=== PATIENT | female | born 1950 | race Caucasian/White ===

== ENCOUNTER 2017-10-23 13:35 | Inpatient (IN) | payer OTHER ==
[~2017-10-23] VITALS: Ht 170.2 cm; Wt 90.7 kg
[~2017-10-23 13:35] MED LIST: ABILIFY 15MG15 MG PO; ABILIFY15 M1 PO; AFLURIA 2045 MCG/0.1 IM; ALBUTEROL 3 ML3 ML INH; ALBUTEROL SULFAT3 M1 NEB; ALBUTEROL0.09 MG/A1 INH; ALBUTEROL2.5 MG/3 M INH/SOL; ALPRAZOLAM1 MG PO; BELSOMRA PO; BELSOMRA20 M1 PO; BETAMETHASONE D30 ML; CEFTIN250 M1 PO; CITALOPRAM HYDR20 MG PO; CYCLOBENZAPRINE10 M1 PO; DIFLUCAN150 M1 PO; DOXYCYCLINE HY100 M4 PO; DULERA1 ARO INH; DUONEB 3 MG/3 ML3 ML INH/SOL; ESCITALOPRAM OX20 MG PO; FLAGYL500 MG PO; FLEXERIL10 MG PO; IBUPROFEN800 M1 PO; LAMICTAL 100MG100 MG PO; LAMICTAL150 MG PO; LAMOTRIGINE150 M1 PO; LASIX20 MG PO; LEXAPRO20 M1 PO; LINZESS145 MC1 PO; MEDROL DOSEPAK1 PAC PO; MELOXICAM7.5 M1 PO; METFORMIN HCL1000 M1 PO; METFORMIN HCL500 MG PO; METFORMIN1000 MG PO; METFORMIN500 MG PO; METOCLOPRAMIDE H5 MG PO; MILK OF MA400 MG/52 PO; MOTRIN600 MG PO; OMEPRAZOLE40 M1 PO; PERCOCET 5-3251 EACH PO; PNEUMOVAX 0.5M0.5 ML IM; PRAVASTATIN SOD20 M2 PO; PREDNISONE10 M2 PO; PREDNISONE10 MG PO; PREDNISONE20 M1 PO; PREDNISONE50 M1 PO; PRILOSEC OTC20 M1 PO; PRILOSEC40 MG PO; REGLAN; STIOLTO RESPIMAT4 GM INH; SYMBICORT 80/4.1 PUF INH; TRAMADOL50 MG PO; TRAZODONE HCL50 M1 PO; VESICARE5 M1 PO; VICODIN 5-3001 EACH PO; ZETIA10 M1 PO; ZETIA10 MG PO; ZITHROMAX 500M500 MG PO
--- NOTE | 2017-10-23 13:50 | ED DYSPNEA/ASTHMA COMPLAINT ---
History of Present Illness General Chief Complaint: Dyspnea (COPD, CHF, Other) Stated Complaint: BIBA, SOB Source: patient, old records Exam Limitations: no limitations Vital Signs & Intake/Output Vital Signs & Intake/Output Vital Signs Date Time Temp Pulse Resp B/P B/P Pulse O2 O2 Flow FiO2 Mean Ox Delivery Rate 10/23 1723 97.5 99 20 123/75 97 Nasal 2.0L Cannula 10/23 1347 95 Nasal 3.0L Cannula 10/23 1342 96.6 103 18 110/63 94 Room Air Allergies Coded Allergies: Penicillins (RASH 10/10/17) azithromycin (From ZITHROMAX Z-ERNESTINA) (RASH 10/10/17) ciprofloxacin (From CIPRO HC) (FACIAL SWELLING, HIVES 10/10/17) clarithromycin (From BIAXIN) (RASH 10/10/17) hydrocortisone (From CIPRO HC) (FACIAL SWELLING 01/21/16) levofloxacin (From LEVAQUIN) (RASH 10/10/17) meperidine (From DEMEROL) (UNKNOWN PER PT 10/10/17) rofecoxib (From VIOXX) (RASH 10/10/17) Reconcile Medications Albuterol Sulfate 2.5 MG/3 ML (0.083 %) VIAL.NEB 1 Vial INH/NEHAL Q4P PRN RESPIRATORY Aripiprazole (Abilify) 15 MG TABLET 1 TAB PO DAILY MENTAL HEALTH (Reported) Cyclobenzaprine HCl 10 MG TABLET 1 TAB PO DAILY PRN pain Doxycycline Hyclate 100 MG TABLET 1 TAB PO BID PNA Escitalopram Oxalate (Lexapro) 20 MG TABLET 1 TAB PO DAILY MENTAL HEALTH ( Reported) Ezetimibe (Zetia) 10 MG TABLET 1 TAB PO DAILY MENTAL HEALTH (Reported) Hydrocodone/Acetaminophen (Vicodin 5-300 MG Tablet) 5 MG-300 MG TABLET 1 TAB PO BID pain Ibuprofen 800 MG TABLET 1 TAB PO PRN PAIN/INFLAMMATION (Reported) Lamotrigine 150 MG TABLET 1 TAB PO BID BIPOLAR (Reported) Linaclotide (Linzess) 145 MCG CAPSULE 0.5 MG PO DAILY PRN CONSTIPATION ( Reported) Meloxicam 7.5 MG TABLET 1 TAB PO DAILY PAIN CONTROL (Reported) Metformin HCl 1,000 MG TABLET 1 TAB PO DAILY DM (Reported) Metoclopramide HCl 5 MG TABLET 1 TAB PO PRN GI (Reported) Omeprazole 40 MG CAPSULE.DR 1 CAP PO DAILY ACID REFLUX (Reported) Oxycodone HCl/Acetaminophen (Percocet 5-325 MG Tablet) 5 MG-325 MG TABLET 1 TAB PO 4 TIMES/DAY PRN pain Pravastatin Sodium 20 MG TABLET 1 TAB PO DAILY CHOLESTEROL (Reported) Prednisone 20 MG TABLET 1 TAB PO BID copd Solifenacin Succinate (Vesicare) 5 MG TABLET 1 TAB PO DAILY INCONTINENCE ( Reported) Suvorexant (Belsomra) 20 MG TABLET 1 TAB PO QPM SLEEP (Reported) Tiotropium Br/Olodaterol HCl (Stiolto Respimat Inhal [place]) 2.5 MCG-2.5 MCG/ ACTUATION MIST.INHAL 1 PUFF INH BID EMPHYSEMA (Reported) Triage Note: 66 Y/O FEMALE BIBA FROM HOME C/O SOB X 2 HOURS. HX COPD AND WEARS 02 AT 3L PER BASELINE. EMS FOUND PT WITHOUT OXYGEN PT STATED TO THEM SHE WAS WALKING OUTSIDE WITHOUT IT. INITIAL SATS IN 80'S (WITHOUT O2) BUT IMPROVED TO 97% ON 3L PER EMS. PT DENIES PAIN. STATES SHE HAS BEEN COUGHING WITH "BEIGE" PHLEGM. PT DENIES CHANGES IN APPETITE. DENIES FEVERS PT RECEIVED DUO NEB TX EN ROUTE AND STATES SHE FEELS RELIEF WITH MED. EKG IN PROGRESS Triage Nurses Notes Reviewed? yes Onset: Abrupt Duration: day(s): (1), constant, getting worse Timing: recent history Severity: moderate Activities at Onset: none Prior Episodes/Possible Cause: chronic episodes Associated Symptoms: cough HPI: 66-year-old female history of COPD on 3 L baseline presents brought in by ambulance for shortness of breath for the past 1 day. She states earlier today she checked her oxygen saturation at home is 84% on her 3 L. She states she's been feeling more short of breath for the past few days she's been seen twice this month for her shortness of breath. She is currently on by mouth prednisone. She reports a cough productive of yellow sputum. No fever no chills no leg swelling chest pain dizziness lightheadedness. She does not smoke. She was given a nebulizer en route with improvement in her symptoms. No modifying factors or associated symptoms otherwise. (Cuate Almaguer) Past History Travel History Traveled to [place] past 21 day No Medical History Any Pertinent Medical History? 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 No (Cuate Almaguer) Review of Systems Review of Systems Constitutional: Reports: see HPI. Comments Review of systems: See HPI, All other systems negative. Constitutional, no chills no fever, HEENT: no sore throat no congestion Cardiovascular: No chest pain , no palpitation Skin: no rashes, no change in skin Respiratory: dyspnea cough sputum GI: No nausea no vomiting, no diarrhea, : No dysuria Muscle skeletal: No joint pain, no back pain Neurologic: , no headache Heme/endocrine: No bruising Immunology: No lymphadenopathy (Cuate Almaguer) Physical Exam Physical Exam General Appearance: well developed/nourished, alert, awake Respiratory: wheezing Comments: Well-developed well-nourished person in no acute distress HEENT: Normal EENT exam; PERRL, EOMI, HEAD is atraumatic. moist mucous membranes. Neck: Supple, no lymphadenopathy, normal range of motion Back: Nontender, no CVA tenderness. Full range of motion Cardiovascular: Regular rate and rhythms no murmurs rubs Respiratory: No respiratory distress. Patient speaking in full complete sentences. Wheezing bilateral no rhonchi no rales Abdomen: Soft, nontender nondistended, no appreciable organomegaly. Normal bowel sounds. No rebound/guarding, Extremity: No edema, full range of motion of extremities, Neuro: Alert oriented x3, motor sensory normal, There were no obvious focal neurologic abnormalities. Skin: No appreciable rash on exposed skin, skin is warm and dry. Psych: Mood and affect is normal, memory and judgment is normal. Core Measures ACS in differential dx? Yes CVA/TIA Diagnosis No Sepsis Present: No Sepsis Focused Exam Completed? No (Chen GOMEZ,Cuate) Progress Differential Diagnosis: asthma, AMI, COPD, musculoskeletal pain, pulmonary embolism, pneumonia, pneumothorax, unstable angina Plan of Care: Orders Procedure Date/time Status CBC WITHOUT DIFFERENTIAL 10/24 0600 Active BASIC ELECTROLYTES PLUS BUN&CR 10/24 0600 Active Regular Diet 10/23 D Active RAPID VIRAL INFLUENZA A 10/23 1739 Active OXYGEN SETUP (GEN) 10/23 1615 Active Saline Lock 10/23 1615 Active Admit to inpatient 10/23 1615 Active Activity/Ambulation 10/23 1615 Active Code Status 10/23 1615 Active TRC EVALUATION (GEN) 10/23 1607 Active URINALYSIS 10/23 1606 Active STREP PNEUMO URINARY ANTIGEN 10/23 1600 Active LEGIONELLA URINARY ANTIGEN 10/23 1600 Active LOWER RESPIRATORY CULTURE 10/23 1600 Active Pathway - chart 10/23 1557 Active House Staff 10/23 1557 Active Patient Data 10/23 1528 Active BLOOD CULTURE 10/23 1501 Active TROPONIN LEVEL 10/23 1357 Complete COMPREHENSIVE METABOLIC PANEL 10/23 1357 Complete CBC WITHOUT DIFFERENTIAL 10/23 1357 Complete B-TYPE NATRIURETIC PEP (BNP) 10/23 1357 Complete EKG 10/23 1336 Active TRC EVALUATION (GEN) 10/23 UNK Active VTE Mechanical Prophylaxis 10/23 UNK Active Vital Signs 10/23 UNK Active Intake & Output 10/23 UNK Active FingerStick- Glucose 10/23 UNK Active Current Medications Sig/Laura Start time Last Medication Dose Stop Time Status Admin Aripiprazole 15 MG DAILY 10/24 1000 UNVr (Abilify) Laboratory Tests 10/23/17 1400: Anion Gap 11, Estimated GFR > 60, BUN/Creatinine Ratio 28.9 H, Glucose 141 H, Calcium 9.7, Total Bilirubin 0.5, AST 22, ALT 38, Alkaline Phosphatase 84, Troponin I < 0.01, [id number]-[id number] Pept 43.3, Total Protein 6.5, Albumin 3.8, Globulin 2.7, Albumin/Globulin Ratio 1.4, CBC w Diff MAN DIFF ORDERED, RBC 4.17 L, MCV 91.6, MCH 30.5, RDW 13.7, MPV 8.8, Gran % 89.8 H, Lymphocytes % 6.7 L, Monocytes % 3.3, Eosinophils % 0.2, Basophils % 0, Absolute Granulocytes 10.3 H , Absolute Lymphocytes 0.8 L, Absolute Monocytes 0.4, Absolute Eosinophils 0, Absolute Basophils 0, Platelet Estimate VERIFIED BY SMEAR, Normocytic RBCs VERIFIED, Normochromic RBCs VERIFIED, PUBS MCHC 33.3 Microbiology 10/23 1739 NASOPHARYN: Influenza Virus A & B Rapid Smear - ORD 10/23 1600 URINE ROUT: Legionella Antigen - COLB 10/23 1600 URINE ROUT: Streptococcus pneumoniae Antigen (M - COLB 10/23 1600 LOWER RESP: Respiratory Culture - COLB 10/23 1600 LOWER RESP: Gram Stain - COLB 10/23 1600 BLOOD: Blood Culture - RECD 10/23 1545 BLOOD: Blood Culture - RECD Patient declining another breathing treatment at this time 94% on 3 L labs ordered old records reviewed Discussed with patient at length all of her lab results x-ray findings given she is currently on by mouth prednisone she has failed outpatient therapy and new consolidation suggestive of pneumonia. Case discussed with Dr. HORTON AGREES WITH PLAN case d/w dr elizabeth will admit- she advised to give rocephin and azithro given pts allergies to fluoroquinolones Diagnostic Imaging: Viewed by Me: Radiology Read. Discussed w/RAD: Radiology Read. Radiology Impression: PATIENT: JOSEPH DEVRIES PRESENT AGE: 66 PATIENT ACCOUNT NO: [id number] : 48 LOCATION: [facility] ORDERING PHYSICIAN: Cuate GOMEZ SERVICE DATE: 10/23/177698 EXAM TYPE: RAD - XRY-PORTABLE CHEST XRAY EXAMINATION: XR PORTABLE CHEST CLINICAL INFORMATION: Shortness of breath COMPARISON: Chest x-rays most recent prior dated 08/17/2017 TECHNIQUE: Portable frontal view of the chest was obtained. FINDINGS: Stable cardiomediastinal silhouette. Small right pleural effusion with streaky infiltrate or atelectasis right base. This represents slight interval prominence compared to the prior examination. Minor subsegmental atelectasis left base. Known right lateral eighth and ninth rib fractures are not well visualized. No acute osseous abnormality of the visualized bony thorax. IMPRESSION: 1. Trace right pleural effusion and increasing opacity right base compatible with evolving infiltrate or atelectasis. 2. Minor subsegmental atelectasis left base. DICTATED BY: Saida Wset MD DATE/TIME DICTATED:10/23/171435 CASE MANAGER:NATALIE DATE/TIME TRANSCRIBED:10/23/171435 CONFIDENTIAL, DO NOT COPY WITHOUT APPROPRIATE AUTHORIZATION. <Electronically signed in Other Vendor System> SIGNED BY: Saida West MD 10/23/17 1441 Initial ED EKG: STACH AT 100 NORMAL AXIS, NO ST SEG CHANGES (Cuate Almaguer) Departure Departure Time of Disposition: 1512 Disposition: STILL A PATIENT Condition: Stable Clinical Impression Primary Impression: Pneumonia Referrals: Alhaji Quiñones MD (PCP/Family) Departure Forms: Customer Survey General Discharge Information Prescriptions: Current Visit Scripts Cyclobenzaprine HCl 1 TAB PO DAILY PRN pain #30 TAB Admission Note Spoke With: Radha Padilla MD Documentation of Exam: Documentation of any treatments & extenuating circumstances including Concerns Regarding Discharge (functional status, medication knowledge or non-compliance, living conditions, etc.) that warrant an admission rather than observation: [IV antibiotics IV steroids respiratory treatments when necessary premature discharge would BE medically harmful patient has failed outpatient therapy with by mouth prednisone given hypoxia shortness of breath premature discharge would BE medically harmful. (Cuate Almaguer) PA/[employer] SUPERVISOR Co-Sign Statement Statement: ED Attending supervision documentation- x I saw and evaluated the patient. I have also reviewed all the pertinent lab results and diagnostic results. I agree with the findings and the plan of care as documented in the PA's/[employer] SUPERVISOR's documentation. Hx COPD on 3L NC with JC, hypoxia secondary to pneumonia [] I have reviewed the ED Record and agree with the PA's/[employer] SUPERVISOR's documentation. [] Additions or exceptions (if any) to the PAs/[employer] SUPERVISOR's note and plan are summarized below: [] (Tommy FREEDMAN,Pierre) Critical Care Note Critical Care Note Critical Care Time: non-applicable (Cuate Almaguer)
[2017-10-23 14:16] LABS: ABSOLUTE BASOPHIL COUNT 0 /CUMM (0.0-0.2); ABSOLUTE EOSINOPHIL COUNT 0 /CUMM (0.0-0.7); ABSOLUTE GRANULOCYTE CT 10.3 /CUMM (1.4-6.5); ABSOLUTE LYMPH COUNT 0.8 /CUMM (1.2-3.4); ABSOLUTE MONOCYTE COUNT 0.4 /CUMM (0.10-0.60); BASOPHIL % 0 % (0.0-2.0); EOSINOPHIL % 0.2 % (0-5); GRANULOCYTE % 89.8 % (42.2-75.2); HEMATOCRIT 38.2 % (37-47); MEAN CORPUSCULAR HGB 30.5 PG (27.0-31.0); MEAN CORPUSCULAR HGB CONC 33.3 G/DL (33.0-37.0); MEAN CORPUSCULAR VOLUME 91.6 FL (81.0-99.0); MEAN PLATELET VOLUME 8.8 FL (7.4-10.4); PLATELET COUNT 303 /CUMM (130-400); RBC DISTRIBUTION WIDTH 13.7 % (11.5-14.5); RED BLOOD CELL CT 4.17 /CUMM (4.20-5.40); WHITE BLOOD CELL COUNT 11.4 /CUMM (4.8-10.8)
--- NOTE | 2017-10-23 14:41 | RADIOLOGY REPORT ---
EXAMINATION: XR PORTABLE CHEST CLINICAL INFORMATION: Shortness of breath COMPARISON: Chest x-rays most recent prior dated 08/17/2017 TECHNIQUE: Portable frontal view of the chest was obtained. FINDINGS: Stable cardiomediastinal silhouette. Small right pleural effusion with streaky infiltrate or atelectasis right base. This represents slight interval prominence compared to the prior examination. Minor subsegmental atelectasis left base. Known right lateral eighth and ninth rib fractures are not well visualized. No acute osseous abnormality of the visualized bony thorax. IMPRESSION: 1. Trace right pleural effusion and increasing opacity right base compatible with evolving infiltrate or atelectasis. 2. Minor subsegmental atelectasis left base.
--- NOTE | 2017-10-23 15:38 | History & Physical ---
Chrissy FREEDMAN,Avery 10/23/17 1537: General Information and HPI MD Statement: I have seen and personally examined JAYCOBJOSEPH Donnie and documented this H&P. The patient is a 66 year old F who presented with a patient stated chief complaint of [shortness of breath and productive cough]. Source of Information: patient, old records Exam Limitations: no limitations History of Present Illness: Patient is a 65-year-old female with a PMH significant for DM, O2 dependent COPD (3 L baseline), HLD, anxiety, bipolar disorder who was brought into the ED by ambulance complaining of shortness of breath, and productive cough. Patient states that she has been in the ED multiple times over the past month with similar complaints and was failed treatment as an outpatient with doxycycline and a prednisone taper. Over the past few days she has been having significant dyspnea on exertion. Today she became dyspneic after ambulation outside while using her portable O2, and could not catch her breath at rest; she checked her pulse ox at this time and it read 84% and she felt dizzy. At this point her friend called EMS. She has had a productive cough with beige sputum intermitently for the last month. She has not had any hemoptysis, associated chest pain, nasal congestion, fever, chills, or rhinorrhea. She denies any sick contacts. She is a patient of Dr. Corona but does not follow closely with her. She has never been admitted to the ICU or been intubated due to COPD in the past. Of note on a recent trip to the ED she was diagnosed with 7th and 8th rib fracture with no recent trauma. Allergies/Medications Allergies: Coded Allergies: Penicillins (RASH 10/10/17) azithromycin (From ZITHROMAX Z-ERNESTINA) (RASH 10/10/17) ciprofloxacin (From CIPRO HC) (FACIAL SWELLING, HIVES 10/10/17) clarithromycin (From BIAXIN) (RASH 10/10/17) hydrocortisone (From CIPRO HC) (FACIAL SWELLING 01/21/16) levofloxacin (From LEVAQUIN) (RASH 10/10/17) meperidine (From DEMEROL) (UNKNOWN PER PT 10/10/17) rofecoxib (From VIOXX) (RASH 10/10/17) Past History Travel History Traveled to [place] past 21 day No Medical History Neurological: NONE EENT: allergies Cardiovascular: hypertension, hyperlipidemia Respiratory: bronchitis, COPD, emphysema, pneumonia Gastrointestinal: constipation Hepatic: NONE Renal: MULTIPLE CYST ON KIDNEYS AIDE UTI Musculoskeletal: NONE Psychiatric: anxiety, bipolar disease, depression Endocrine: diabetes Blood Disorders: NONE 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 Home Who Do You Live With? self Services at Home: Oxygen Primary Language: Lao Smoking Status: Current Everyday Smoker (approximately 50 pack years) ETOH Use: denies use Illicit Drug Use: denies illicit drug use Living Will? yes Functional Ability ADLs Independent: dressing, eating, toileting, bathing. Ambulation: cane IADLs Independent: shopping, housework, finances, food prep, telephone, medication admin. Needs Assist: transportation. Review of Systems Review of Systems Constitutional: Denies: chills, diaphoresis, fever. EENTM: Denies: blurred vision, double vision, visual changes. Cardiovascular: Denies: chest pain, palpitations. Respiratory: Reports: cough, short of breath, sputum production, wheezing. Denies: hemoptysis. GI: Denies: abdominal pain, diarrhea, melena, nausea, changes in stool, vomiting. Genitourinary: Reports: no symptoms. Musculoskeletal: Reports: no symptoms. Skin: Denies: rash. Exam & Diagnostic Data Last 24 Hrs of Vital Signs/I&O Vital Signs Date Time Temp Pulse Resp B/P B/P Pulse O2 O2 Flow FiO2 Mean Ox Delivery Rate 10/23 2044 Nasal 3.0L Cannula 10/23 1842 98.1 102 20 144/80 93 Nasal Cannula 10/23 1830 93 Nasal 3.0L Cannula 10/23 1723 97.5 99 20 123/75 97 Nasal 3.0L Cannula 10/23 1347 95 Nasal 3.0L Cannula 10/23 1342 96.6 103 18 110/63 94 Room Air Intake & Output 10/23 1600 10/23 0800 10/23 0000 Intake Total 0 Output Total Balance 0 Intake, Oral 0 Patient 200 lb Weight Weight Reported by Patient Measurement Method Physical Exam General Appearance Alert, Oriented X3, Cooperative, No Acute Distress Skin No Rashes Skin Temp/Moisture Exam: Warm/Dry Sepsis Skin Exam (color): Normal for Ethnicity HEENT Atraumatic, PERRLA, Mucous Membr. moist/pink Neck Supple, No JVD Cardiovascular Regular Rate, Normal S1, Normal S2, No Murmurs Lungs diminished breath sounds diffusely with wheezing, no respiratory distress, able to speak in full sentences, no use of accessory muscles Abdomen Normal Bowel Sounds, Soft, No Tenderness, No Hepatospenomegaly, No Masses Neurological Normal Speech, Sensation Intact Extremities No Clubbing, No Cyanosis, No Edema, Normal Pulses, No Tenderness/ Swelling Vascular Normal Pulses, Pulses Symmetrical Sepsis Peripheral Pulse Location: Posterior Tibialis Sepsis Peripheral Pulse Exam: Normal Sepsis Cap Refill Exam: <2 Sec Last 24 Hrs of Labs/Ze[facility]: Laboratory Tests 10/23/17 1400: Anion Gap 11, Estimated GFR > 60, BUN/Creatinine Ratio 28.9 H, Glucose 141 H, Calcium 9.7, Total Bilirubin 0.5, AST 22, ALT 38, Alkaline Phosphatase 84, Troponin I < 0.01, Myk-F-Gwbfqzviidg Pept 43.3, Total Protein 6.5, Albumin 3.8, Globulin 2.7, Albumin/Globulin Ratio 1.4, CBC w Diff MAN DIFF ORDERED, RBC 4.17 L, MCV 91.6, MCH 30.5, RDW 13.7, MPV 8.8, Gran % 89.8 H, Lymphocytes % 6.7 L, Monocytes % 3.3, Eosinophils % 0.2, Basophils % 0, Absolute Granulocytes 10.3 H , Absolute Lymphocytes 0.8 L, Absolute Monocytes 0.4, Absolute Eosinophils 0, Absolute Basophils 0, Platelet Estimate VERIFIED BY SMEAR, Normocytic RBCs VERIFIED, Normochromic RBCs VERIFIED, PUBS MCHC 33.3 Microbiology 10/23 1758 NASOPHARYN: Influenza Virus A & B Rapid Smear - COMP 10/23 1600 URINE ROUT: Legionella Antigen - COLB 10/23 1600 URINE ROUT: Streptococcus pneumoniae Antigen (M - COLB 10/23 1600 LOWER RESP: Respiratory Culture - COLB 10/23 1600 LOWER RESP: Gram Stain - COLB 10/23 1600 BLOOD: Blood Culture - RECD 10/23 1545 BLOOD: Blood Culture - RECD Diagnostic Data EKG Results sinus tachycardia, HR 108, L axis deviation CXR Results 1. Trace right pleural effusion and increasing opacity right base compatible with evolving infiltrate or atelectasis. 2. Minor subsegmental atelectasis left base. Assessment/Plan Assessment: Patient is a 65-year-old female with a PMH significant for DM, O2 dependent COPD (3 L baseline), HLD, anxiety, bipolar disorder who was brought into the ED by ambulance complaining of shortness of breath, and productive cough. VS on admission: T 96.6, P 103, RR 18, BP 110/63, Pulse ox 94 on 3L NC Labs on admission: WBC 11.4, H/H 12.7/38.2, plt 303, Na 140, K 4.5, Cl 103, CO2 25, BUN 26, Cr 0.9, Glu 141 Patient will be admitted to the general medicine for treatment of the following problems #Acute hypoxic respiratory failure secondary to COPD exacerbation Patient desaturated to 80s according to EMS. She has a history of COPD and has had a productive cough for the past month which she failed outpatient steroid taper. Rapid flu test negative. -TRC/Nebs - IV Solumedrol 40 mg Q8, taper as tolerated -Continue home albuterol #Community acquired pneumonia While patient is afebrile, she has been on steroids as an outpatient and doxycycline. Mild leukocytosis may be due to infection or prednisone. CXR shows evolving R base opacity. -follow up Blood cultures, sputum culture, urine strep pneumoniae and legionella antigens - IV Azithromycin and Rocephin #DM -Hold home metformin, begin novolog sliding scale - accuchecks TIDAC/HS #Chronic medical problems -continue with home medications including pravastatin, oxybutynin, Lexapro, Zetia, abilify, Lamictal #DVT prophylaxis -ALPS and SC heparin #Code status -Full code As Ranked By This Provider Problem List: 1. Pneumonia 2. COPD with exacerbation Core Measures/Misc (07/21) Acute Coronary Syndrome ACS Diagnosis: No Congestive Heart Failure Congestive Heart Failure Diagnosis No Cerebrovascular Accident CVA/TIA Diagnosis: No VTE (View Protocol) VTE Risk Factors Smoker No Mechanical VTE Prophylaxis d/t N/A MechProphylax Ordered No VTE Pharm Prophylaxis d/t NA PharmProphylax ordered Sepsis (View protocol) Sepsis Present: No Radha Padilla MD 10/23/17 1616: Attending MD Review Statement Attending Statement Attending MD Statement: examined this patient, discuss w/resident/PA/CHIEF SUPPLY CHAIN OFFICER, agreed w/resident/PA/CHIEF SUPPLY CHAIN OFFICER, reviewed EMR data (avail), reviewed images Attending Assessment/Plan: 66-year-old female past medical history of diabetes, hypertension, COPD with chronic respiratory failure and emphysema on 3 L of oxygen, chronic respiratory failure, at baseline. She is completeing a prednisone taper and is here with a COPD exacerbation and Right lower lobe pneumonia. Will bring her in to Gen med, traet her with IV abx and IV steroids. Watch sugars closley on steroids. DVT prophylaxis and f/u. Jannette Felix MD,Anmol 10/23/17 1810: General Information and HPI Allergies/Medications Home Med list Albuterol Sulfate 2.5 MG/3 ML (0.083 %) VIAL.NEB 1 Vial INH/NEHAL Q4P PRN RESPIRATORY Aripiprazole (Abilify) 15 MG TABLET 1 TAB PO DAILY MENTAL HEALTH (Reported) Cyclobenzaprine HCl 10 MG TABLET 1 TAB PO DAILY PRN pain Doxycycline Hyclate 100 MG TABLET 1 TAB PO BID PNA Escitalopram Oxalate (Lexapro) 20 MG TABLET 1 TAB PO DAILY MENTAL HEALTH ( Reported) Ezetimibe (Zetia) 10 MG TABLET 1 TAB PO DAILY MENTAL HEALTH (Reported) Hydrocodone/Acetaminophen (Vicodin 5-300 MG Tablet) 5 MG-300 MG TABLET 1 TAB PO BID pain Ibuprofen 800 MG TABLET 1 TAB PO PRN PAIN/INFLAMMATION (Reported) Lamotrigine 150 MG TABLET 1 TAB PO BID BIPOLAR (Reported) Linaclotide (Linzess) 145 MCG CAPSULE 0.5 MG PO DAILY PRN CONSTIPATION ( Reported) Meloxicam 7.5 MG TABLET 1 TAB PO DAILY PAIN CONTROL (Reported) Metformin HCl 1,000 MG TABLET 1 TAB PO DAILY DM (Reported) Metoclopramide HCl 5 MG TABLET 1 TAB PO PRN GI (Reported) Omeprazole 40 MG CAPSULE.DR 1 CAP PO DAILY ACID REFLUX (Reported) Oxycodone HCl/Acetaminophen (Percocet 5-325 MG Tablet) 5 MG-325 MG TABLET 1 TAB PO 4 TIMES/DAY PRN pain Pravastatin Sodium 20 MG TABLET 1 TAB PO DAILY CHOLESTEROL (Reported) Prednisone 20 MG TABLET 1 TAB PO BID copd Solifenacin Succinate (Vesicare) 5 MG TABLET 1 TAB PO DAILY INCONTINENCE ( Reported) Suvorexant (Belsomra) 20 MG TABLET 1 TAB PO QPM SLEEP (Reported) Tiotropium Br/Olodaterol HCl (Stiolto Respimat Inhal Rippey) 2.5 MCG-2.5 MCG/ ACTUATION MIST.INHAL 1 PUFF INH BID EMPHYSEMA (Reported) Resident Review Statement Resident Statement: examined this patient, discussed with it intern, discussed with family Other Findings: 66 year female with past medical history significant for diabetes mellitus on oral hypoglycemic agents, past medical history of hypertension not on any antihypertensive medications, current smoker COPD on 3.5 L of oxygen at baseline , anxiety disorder, bipolar disorder came to emergency department with chief complaint of shortness of breath for 2 hours. Patient was given steroids and doxycycline recently for productive cough. She was on steroid taper recently. Vitals in emergency department patient afebrile, mild tachycardia noticed, no tachypnea, systolic blood pressure 123-144 and diastolic blood pressure 75-80, oxygen saturation of 93-97% on 3 L. Oxygen. On examination patient was alert and oriented to time person place comfortably lying in the bed. Not in any acute distress. S1 and S2 audible without any sounds, significant wheezing on bilateral lung examination. Grossly intact neurological examination. Labs significant for WBC count 11.4, hemoglobin 12.7 hematocrit 38.2, 303 platelets, no significant electrolyte abnormality, chest x-ray showed Trace right pleural effusion and increasing opacity right base compatible with evolving infiltrate or atelectasis. Minor subsegmental atelectasis left base. Patient was admitted on general medicine so for the management of following problems Acute exacerbation of COPD Community-acquired pneumonia failed On by mouth antibiotics - Inciting event likely secondary to recent community-acquired pneumonia or Compliance vs Worseneing of disease. - Currently Afebrile - Hemodynamically stable - WBC count elevated likely secondary to by mouth steroid use at home - Admit to General Medicine Floor - Vitals Q shift - Oxygen by nasal canula as required, taper as tolerated - Total respiratory care - Strat IV Steroids Methylprednisone 40mg Q8 IV - Taper Steroids with clinical improvement - Start 500mg IV Zithromax for COPD exacerbation - Current acquired pneumonia treatment with ceftriaxone and azithromycin - TRC Nebs as needed - Pulmo Consult if needed patient follows up with Dr. Corona Patient is full code Patient is on heparin for DVT prophylaxis Patient is on diabetic diet Patient is on pain management
--- NOTE | 2017-10-23 16:16 | Admission Certification ---
Admission Certification Certification Statement - As attending physician, I certify that at the time of - admission, based on clinical presentation, severity of - symptoms, need for further diagnostic testing and - therapeutic interventions, and risk of adverse outcomes - without in-hospital treatment, in my clinical assessment, - this patient requires an acute hospital stay for a minimum - of two nights or longer. I have also considered psychsocial - factors such as support system, advanced age, financial - issues, cognitive issues, and failed out-patient treatments, - past re-admission history, safety of patient, and lack of - compliance as applicable. Specific rationale supporting this admission is: Acute COPD exacerbation with likely right basilar infiltrate.
[2017-10-23] MEDS ORDERED: CYCLOBENZAPRINE10 M1 PO (17:42)
[2017-10-23 18:42] VITALS: BP 144/80
[2017-10-23 22:06] VITALS: BP 140/80
[2017-10-24 03:30] VITALS: BP 180/92
--- NOTE | 2017-10-24 04:09 | Event Note ---
Event Note Event Note: Around 4:00 patient complained of chest pain. I saw the patient at bedside. She was comfortably lying in her bed. Upon asking she said she has more of a musculoskeletal pain with no radiation to left arm or jaw. No chest pressure, shortness of breath. Vitals Blood pressure 140/80, respiratory rate 20, pulse rate 100, on 3 L of nasal oxygen. Stat EKG was taken which showed sinus tachycardia. Plan to give Tylenol and Pepcid. We will watch her vitals and if symptoms worse we will do a troponin, d-dimer if needed.
[2017-10-24 07:31] VITALS: BP 132/78
--- NOTE | 2017-10-24 08:46 | PN- Housestaff ---
Chrissy FREEDMAN,Avery 10/24/17 0846: Subjective Follow-up For: COPD exacerbation possible pneumonia Subjective: Patient was seen and examined at bedside. She was resting comfortably. Ovenight she experienced sharp chest pain that radiated to her jaw. She was hypertensive at the time with no assocatied diaphoresis, nausea, or SOB. EKG showed no significant ST changes and Troponin was negative. The pain was relieved by morphine. She has not had any repeat episodes of chest pain. She continues to complain of producive cough and wheezing but has no other complaints. She denies any fever, chills, SOB, nausea, vomiting. Review of Systems Constitutional: Denies: chills, fever. Cardiovascular: Reports: see HPI, chest pain. Denies: palpitations. Respiratory: Reports: sputum production, wheezing. Denies: cough, short of breath. Gastrointestinal: Reports: no symptoms. Genitourinary: Reports: no symptoms. Musculoskeletal: Reports: no symptoms. Objective Last 24 Hrs of Vital Signs/I&O Vital Signs Date Time Temp Pulse Resp B/P B/P Pulse O2 O2 Flow FiO2 Mean Ox Delivery Rate 10/24 1853 Nasal 4.0L Cannula 10/24 1531 98.0 80 18 120/70 95 10/24 0942 93 Nasal 4.0L Cannula 10/24 0800 Nasal 4.0L Cannula 10/24 0731 97.4 102 20 132/78 92 Nasal 3.0L Cannula 10/24 0406 89 Nasal 3.0L Cannula 10/24 0330 97.8 103 24 180/92 95 Nasal 3.0L Cannula 10/24 0000 96 Nasal 3.0L Cannula 10/23 2206 97.8 100 20 140/80 90 Nasal Cannula 10/23 2044 Nasal 3.0L Cannula Intake & Output 10/24 1600 10/24 0800 10/24 0000 Intake Total 983 214 0239 Output Total 600 400 Balance -350 600 650 Intake, IV 250 250 Intake, Oral 600 800 Number 1 Bowel Movements Output, Urine 600 400 Patient 200 lb Weight Weight Reported by Patient Measurement Method Physical Exam General Appearance: Alert, Oriented X3, Cooperative Sepsis Skin Exam (color): Normal for Ethnicity HEENT: Atraumatic, Mucous Membr. moist/pink Cardiovascular: Regular Rate, Normal S1, Normal S2, No Murmurs Lungs: diminished breath sounds with diffuse wheezing, no respiratory distress Abdomen: Normal Bowel Sounds, Soft, No Tenderness, No Hepatospenomegaly, No Masses Neurological: Normal Speech, Sensation Intact Vascular: Normal Pulses, Pulses Symmetrical Sepsis Peripheral Pulse Location: Radial Sepsis Peripheral Pulse Exam: Normal Sepsis Cap Refill Exam: <2 Sec Current Medications: Current Medications Sig/Laura Start time Last Medication Dose Route Stop Time Status Admin Acetaminophen 650 MG Q4P PRN 10/23 1830 AC PO Albuterol Sulfate 3 ML EVERY 4 HRS/AWAKE 10/24 0800 AC 10/24 INH 1851 Alprazolam 0.25 MG ONCE ONE 10/23 2045 DC 10/23 PO 10/23 204 2153 Aripiprazole 15 MG DAILY 10/24 1000 AC 10/24 PO 0749 Azithromycin 500 MG DAILY 10/24 1000 AC 10/24 Sodium Chloride 250 ML IV 0748 Ceftriaxone Sodium 1,000 MG DAILY 10/24 1000 AC 10/24 IV 0748 Cyclobenzaprine HCl 10 MG DAILY PRN 10/24 0245 AC 10/24 PO 0235 Cyclobenzaprine HCl 10 MG DAILY PRN 10/23 1930 DC PO Escitalopram Oxalate 20 MG DAILY 10/24 1000 AC 10/24 PO 0749 Ezetimibe 10 MG DAILY 10/24 1000 AC 10/24 PO 0749 Heparin Sodium 5,000 UNIT Q8 10/23 2200 AC 10/24 (Porcine) SC 1426 Insulin Aspart 0 TIDAC 10/24 0800 AC 10/24 SC 1727 Lamotrigine 150 MG BID 10/23 2200 AC 10/24 PO 0956 Methylprednisolone 40 MG Q8 10/23 2200 AC 10/24 IV 1426 Morphine Sulfate 2 MG ONCE ONE 10/24 0400 DC 10/24 IV 10/24 0401 0400 Nicotine 7 MG DAILY 10/24 1333 AC TOP Omeprazole 40 MG DAILY AC 10/24 0700 AC 10/24 PO 0632 Oxybutynin Chloride 5 MG DAILY 10/24 1000 AC 10/24 PO 0749 Pravastatin Sodium 20 MG DAILY 10/24 1000 AC 10/24 PO 0749 Last 24 Hrs of Lab/[facility] Results Last 24 Hrs of Labs/Mics: Laboratory Tests 10/24/17 1422: Troponin I < 0.01 10/24/17 0813: Anion Gap 9, Estimated GFR > 60, BUN/Creatinine Ratio 31.3 H, Calcium 9.7, 25- OH Vitamin D Total 35.8, CBC w Diff NO MAN DIFF REQ, RBC 3.98 L, MCV 92.2, MCH 30.9, RDW 13.7, MPV 9.0, Gran % 90.5 H, Lymphocytes % 4.5 L, Monocytes % 4.8, Eosinophils % 0.1, Basophils % 0.1, Absolute Granulocytes 16.3 H, Absolute Lymphocytes 0.8 L, Absolute Monocytes 0.9 H, Absolute Eosinophils 0, Absolute Basophils 0, PUBS MCHC 33.6 10/24/17 0350: Troponin I < 0.01 10/23/172149: Urine Color YEL, Urine Clarity CLEAR, Urine pH 6.5, Ur Specific [place] 1.010, Urine Protein NEG, Urine Ketones NEG, Urine Nitrite NEG, Urine Bilirubin NEG, Urine Urobilinogen 0.2, Ur Leukocyte Esterase NEG, Ur Microscopic EXAM NOT REQUIRED, Urine Hemoglobin NEG, Urine Glucose >=1000 H Microbiology 10/23 2150 URINE ROUT: Legionella Antigen - COMP 10/23 2150 URINE ROUT: Streptococcus pneumoniae Antigen (M - COMP Assessment/Plan Assessment: Patient is a 65-year-old female with a PMH significant for DM, O2 dependent COPD (3 L baseline), HLD, anxiety, bipolar disorder who was brought into the ED by ambulance complaining of shortness of breath, and productive cough. #Acute hypoxic respiratory failure secondary to COPD exacerbation Patient desaturated to 80s according to EMS. She has a history of COPD and has had a productive cough for the past month which she failed outpatient steroid taper. Rapid flu test negative. -TRC/Nebs - IV Solumedrol 40 mg Q8, will taper to 40 mg BID tomorrow -Continue home albuterol #possible Community acquired pneumonia given the chronicity of the symptoms and previous failed outpatient treatment it is possible that these symptoms are not service representative of pneumonia -follow up Blood cultures, sputum culture, urine strep pneumoniae and legionella antigens - will continue with IV Azithromycin and Rocephin pending pulmonary evaluation - pulmonary consult placed #nicotine dependence -Smoking cessation counseling given - nicotine patch #DM -Hold home metformin, begin novolog sliding scale - accuchecks TIDAC/HS #Chronic medical problems -continue with home medications including pravastatin, oxybutynin, Lexapro, Zetia, abilify, Lamictal #DVT prophylaxis -ALPS and SC heparin #Code status -Full code Problem List: 1. COPD with exacerbation 2. Pneumonia Pain Ratin Pain Location: none Pain Goal: Remain pain free Pain Plan: pain pathway Tomorrow's Labs & Rationales: cbc, bep Eleonora FREEDMAN,Marley 10/24/17 1142: Attending Review Statement Attending Statement Attending MD Statement: examined this patient, discuss w/resident/PA/SENIOR ORACLE DBA, agreed w/resident/PA/SENIOR ORACLE DBA, reviewed EMR data (avail), discussed with nursing, discussed with case mgmt, amended to note Attending Assessment/Plan: 66-year-old female with history of advanced COPD on 3 L of oxygen at baseline, active smoker presented to the ER yesterday with complaints of shortness of breath and cough productive of clear phlegm. Her presentation yesterday was her fourth visit to the emergency room since September 07 with respiratory complaints. She was prescribed doxycycline for bronchitis on October 10. Imaging since September has revealed a questionable infiltrate in the right lung base. Chest CT on October 10 showed an increase in the right basilar atelectasis / infiltrate. She was also noted to have fractures of the eighth and ninth rib. She denies any history of trauma. Overnight she complained of chest pain. EKG showed no ischemic changes. First troponin was negative. She denies any chest pain currently. Continues complain of shortness of breath at rest. On examination she is not in any respiratory distress. She has no jugular venous distention. She has fair entry bilaterally with diffuse expiratory wheezing. Abdomen soft and nontender. She has no peripheral edema. Problems: 1. Advanced COPD; with repeated ER visits for shortness of breath. 2. Eighth and ninth rib fractures on the right; no history of trauma. 3. Leukocytosis likely secondary to steroid Plan: -It is unclear if patient does have an active pneumonia at this time. Infiltrate noted on the right base has been present since September. Patient was started on antibiotic therapy about [address] at that time did not show definite consolidation. Recommend further evaluation by the pulmonology service. We'll continue antibiotic therapy empirically till then. -Continue bronchodilator therapy. Continue systemic steroid therapy at current dose. -Smoking cessation encouraged. Order nicotine patch. -Her age, smoking history and history of steroid use does put her at risk for osteoporosis. Recommend outpatient bone density screening. Check calcium and vitamin D level.
[2017-10-24 09:26] LABS: ABSOLUTE BASOPHIL COUNT 0 /CUMM (0.0-0.2); ABSOLUTE EOSINOPHIL COUNT 0 /CUMM (0.0-0.7); ABSOLUTE GRANULOCYTE CT 16.3 /CUMM (1.4-6.5); ABSOLUTE LYMPH COUNT 0.8 /CUMM (1.2-3.4); ABSOLUTE MONOCYTE COUNT 0.9 /CUMM (0.10-0.60); BASOPHIL % 0.1 % (0.0-2.0); EOSINOPHIL % 0.1 % (0-5); HEMATOCRIT 36.7 % (37-47); MEAN CORPUSCULAR HGB 30.9 PG (27.0-31.0); MEAN CORPUSCULAR HGB CONC 33.6 G/DL (33.0-37.0); MEAN CORPUSCULAR VOLUME 92.2 FL (81.0-99.0); RBC DISTRIBUTION WIDTH 13.7 % (11.5-14.5); RED BLOOD CELL CT 3.98 /CUMM (4.20-5.40)
[2017-10-24 10:15] LABS: GRANULOCYTE % 90.5 % (42.2-75.2); PLATELET COUNT 307 /CUMM (130-400)
[2017-10-24 15:31] VITALS: BP 120/70
[2017-10-24 22:30] VITALS: BP 122/60
[2017-10-25 06:44] VITALS: BP 130/80
--- NOTE | 2017-10-25 07:05 | PN- Housestaff ---
Chrissy FREEDMAN,Avery 10/25/17 0705: Subjective Follow-up For: COPD exacerbation Possible CAP Subjective: Patient seen and examined at bedside. She is resting comfortably. She had no acute events overnight. She is currently complaining of right lateral chest pain at the site of her fractured ribs which is new and she attributes to worsening of her cough. She also reports worsening of her wheezing overnight as well as an episode of dyspnea on exertion last night while walking to the restroom. While she noted some improvement yesterday she currently believes that she has gotten worse in the past day. She is anxious to be discharged before the holidays. She currently denies any fevers, chills, shortness of breath at rest, nausea, vomiting. Review of Systems Constitutional: Denies: chills, fever. Cardiovascular: Reports: chest pain (musculoskeletal). Denies: palpitations. Respiratory: Reports: cough, short of breath, sputum production, wheezing. Denies: hemoptysis. Gastrointestinal: Denies: abdominal pain, diarrhea, melena, nausea, bloody stool, vomiting. Genitourinary: Reports: no symptoms. Musculoskeletal: Reports: see HPI. Objective Last 24 Hrs of Vital Signs/I&O Vital Signs Date Time Temp Pulse Resp B/P B/P Pulse O2 O2 Flow FiO2 Mean Ox Delivery Rate 10/25 0644 97.9 96 22 130/80 97 10/25 0640 94 Nasal 4.0L Cannula 10/25 0000 Nasal 4.0L Cannula 10/24 2230 98.3 102 20 122/60 94 Nasal Cannula 10/24 1853 Nasal 4.0L Cannula 10/24 1600 96 Nasal 4.0L Cannula 10/24 1531 98.0 80 18 120/70 95 10/24 0942 93 Nasal 4.0L Cannula 10/24 0800 Nasal 4.0L Cannula 10/24 0731 97.4 102 20 132/78 92 Nasal 3.0L Cannula Intake & Output 10/25 0800 10/25 0000 10/24 1600 Intake Total 600 250 Output Total 600 Balance 600 -350 Intake, IV 250 Intake, Oral 600 Number 1 Bowel Movements Output, Urine 600 Physical Exam General Appearance: Alert, Oriented X3, Cooperative, No Acute Distress Skin Temp/Moisture Exam: Warm/Dry Sepsis Skin Exam (color): Normal for Ethnicity Cardiovascular: Regular Rate, Normal S1, Normal S2, No Murmurs, R lateral chest TTP Lungs: diffuse expiratory wheezing with poor air movement, no improvement from yesterday Abdomen: Normal Bowel Sounds, Soft, No Tenderness, No Hepatospenomegaly, No Masses Neurological: Normal Speech, Sensation Intact Current Medications: Current Medications Sig/Laura Start time Last Medication Dose Route Stop Time Status Admin Acetaminophen 650 MG Q4P PRN 10/23 1830 AC PO Albuterol Sulfate 3 ML EVERY 4 HRS/AWAKE 10/24 0800 AC 10/25 INH 0629 Alprazolam 0.25 MG ONCE ONE 10/24 2230 DC 10/24 PO 10/24 2231 2259 Aripiprazole 15 MG DAILY 10/24 1000 AC 10/24 PO 0749 Azithromycin 500 MG DAILY 10/24 1000 AC 10/24 Sodium Chloride 250 ML IV 0748 Ceftriaxone Sodium 1,000 MG DAILY 10/24 1000 AC 10/24 IV 0748 Cyclobenzaprine HCl 10 MG DAILY PRN 10/24 0245 AC 10/24 PO 0235 Escitalopram Oxalate 20 MG DAILY 10/24 1000 AC 10/24 PO 0749 Ezetimibe 10 MG DAILY 10/24 1000 AC 10/24 PO 0749 Heparin Sodium 5,000 UNIT Q8 10/23 2200 AC 10/25 (Porcine) SC 0651 Insulin Aspart 0 TIDAC 10/24 0800 AC 10/24 SC 1727 Lamotrigine 150 MG BID 10/23 2200 AC 10/24 PO 2136 Methylprednisolone 40 MG BID 10/24 2200 AC 10/24 IV 2136 Methylprednisolone 40 MG Q8 10/23 2200 DC 10/24 IV 1426 Nicotine 7 MG DAILY 10/24 1333 AC 10/24 TOP 2136 Omeprazole 40 MG DAILY AC 10/24 0700 AC 10/25 PO 0651 Oxybutynin Chloride 5 MG DAILY 10/24 1000 AC 10/24 PO 0749 Oxycodone/ 1 TAB ONCE ONE 10/24 2230 DC 10/24 Acetaminophen PO 10/24 2231 225 Pravastatin Sodium 20 MG DAILY 10/24 1000 AC 10/24 PO 0749 Orders Radiology Findings: CXR 1. There has been no interval change in the small right pleural effusion with underlying opacity which may be consistent with atelectasis or consolidation. 2. Linear opacities at the left base are consistent with subsegmental atelectasis. Assessment/Plan Assessment: Patient is a 65-year-old female with a PMH significant for DM, O2 dependent COPD (3 L baseline), HLD, anxiety, bipolar disorder who was brought into the ED by ambulance complaining of shortness of breath, and productive cough. #Acute hypoxic respiratory failure secondary to COPD exacerbation Patient desaturated to 80s according to EMS. She has a history of COPD and has had a productive cough for the past month which she failed outpatient steroid taper. Rapid flu test negative. Patient worsened clincally today. -TRC/Nebs - increased to IV Solumedrol 40 mg Q6, will taper as tolerated -Continue home albuterol #Community acquired pneumonia patient is afebrile on abx and steroids currently, leukocytosis may represent emargination secondary to steroid use or acute infectious process with pneumonia. Repeat CXR showed right pleural effusion with underlying opacity could represent pneumonia. Pleural effusion has not changed in size will not require thoracentesis at this time. -follow up Blood cultures(currently negative for growth), sputum culture - will continue with IV Azithromycin and Rocephin - pulmonary evaluation and recommendations appreciated #nicotine dependence -Smoking cessation counseling given - nicotine patch #DM -Hold home metformin, begin novolog sliding scale - accuchecks TIDAC/HS #Chronic medical problems -continue with home medications including pravastatin, oxybutynin, Lexapro, Zetia, abilify, Lamictal #DVT prophylaxis -ALPS and SC heparin #Code status -Full code Problem List: 1. COPD with exacerbation 2. Pneumonia Pain Ratin Pain Location: R lateral chest Pain Goal: Pain 4 or less Pain Plan: lidoderm and percocet for breakthrough Tomorrow's Labs & Rationales: cbc, bep Eleonora FREEDMAN,Marley 10/25/17 1236: Attending MD Review Statement Attending Statement Attending MD Statement: examined this patient, discuss w/resident/PA/ACCOUNT RECEIVABLE ASSOCIATE, agreed w/resident/PA/ACCOUNT RECEIVABLE ASSOCIATE, reviewed EMR data (avail), discussed with nursing, discussed with case mgmt, amended to note Attending Assessment/Plan: Patient seen and examined. She reports feeling lousy this morning. She reports she is short of breath with exertion. She also reports audible wheezing. Reports good appetite. Denies nausea vomiting. She remains afebrile and hemodynamically stable. She is saturating 94-97% on 4 L of oxygen. On examination she does not appear to be in acute respiratory distress. She has no use of accessory muscles. Entry is adequate bilaterally however she does have diffuse rhonchi. Heart sounds are regular. She has trace peripheral edema. Problems: 1. Advanced COPD with current acute exacerbation. 2. Chronic right lower lobe infiltrate first noted a month ago with small pleural effusion. 3. Leukocytosis likely secondary to systemic steroid therapy. 4. 8th and 9th rib fractures on the right. Plan: -Pulmonary consultation appreciated. Continue antibiotic therapy with ceftriaxone and azithromycin for presumed common to acquired pneumonia. Patient did complete antibiotic therapy with doxycycline prior to admission. Infiltrate has been present since September. -Obtain sputum cultures. Blood cultures are negative. -Repeat checks x-ray to evaluate progress of her right pleural effusion. If increasing in size consider diagnostic thoracentesis. -Given her worsening bronchospasm today systemic steroid dose has been increased to 40 mg IV every 6 hours. -Patient complains of pleuritic pain at the site of her fractures. Administer Lidoderm patch. Administer Percocet when necessary breakthrough pain.
[2017-10-25 08:42] LABS: ABSOLUTE BASOPHIL COUNT 0 /CUMM (0.0-0.2); ABSOLUTE EOSINOPHIL COUNT 0 /CUMM (0.0-0.7); ABSOLUTE GRANULOCYTE CT 17.3 /CUMM (1.4-6.5); ABSOLUTE MONOCYTE COUNT 1.4 /CUMM (0.10-0.60); BASOPHIL % 0.1 % (0.0-2.0); EOSINOPHIL % 0 % (0-5); HEMATOCRIT 37.7 % (37-47); MEAN CORPUSCULAR HGB 30.9 PG (27.0-31.0); MEAN CORPUSCULAR HGB CONC 33.6 G/DL (33.0-37.0); MEAN CORPUSCULAR VOLUME 91.9 FL (81.0-99.0); MEAN PLATELET VOLUME 8.7 FL (7.4-10.4); RBC DISTRIBUTION WIDTH 13.6 % (11.5-14.5); WHITE BLOOD CELL COUNT 19.8 /CUMM (4.8-10.8)
[2017-10-25 09:22] LABS: GRANULOCYTE % 87.4 % (42.2-75.2); PLATELET COUNT 317 /CUMM (130-400)
--- NOTE | 2017-10-25 11:54 | Cons- Pulmonary ---
General Information and HPI Consulting Request Date of Consult: 10/25/17 Requested By: Dr. Crews Reason for Consult: AECOPD Source of Information: patient, old records Exam Limitations: no limitations History of Present Illness: The patient is a 66-year-old female with a PMH significant for DM, O2 dependent COPD (3 L baseline), HLD, anxiety, bipolar disorder who was brought into the ED by ambulance on the day of admission, complaining of shortness of breath, and productive cough. She has been seen in the ED multiple times over the past month with similar complaints. On a recent trip to the ED she was diagnosed with 7th and 8th rib fracture with no recent trauma. She was treated with doxycycline and a prednisone taper without resolution of her symptoms. She continues to complaing of significant shortness of breath with any exertion, as well as wheezing. She denies any hemoptysis, chest pain, nasal congestion, fever or chills. She denies any sick contacts. She has never been admitted to the ICU or been intubated due to COPD in the past. CXR in the ED showed trace right pleural effusion and increasing opacity right base compatible with evolving infiltrate or atelectasis. There was also minor subsegmental atelectasis left base. The patient was pancultured which are negative to date. She remains on ceftriaxone and azithro pending further culture data. She has ongoing bronchospasm. Allergies/Medications Allergies: Coded Allergies: Penicillins (RASH 10/10/17) azithromycin (From ZITHROMAX Z-ERNESTINA) (RASH 10/10/17) ciprofloxacin (From CIPRO HC) (FACIAL SWELLING, HIVES 10/10/17) clarithromycin (From BIAXIN) (RASH 10/10/17) hydrocortisone (From CIPRO HC) (FACIAL SWELLING 01/21/16) levofloxacin (From LEVAQUIN) (RASH 10/10/17) meperidine (From DEMEROL) (UNKNOWN PER PT 10/10/17) rofecoxib (From VIOXX) (RASH 10/10/17) Home Med List: Albuterol Sulfate 2.5 MG/3 ML (0.083 %) VIAL.NEB 1 Vial INH/NEHAL Q4P PRN RESPIRATORY Aripiprazole (Abilify) 15 MG TABLET 1 TAB PO DAILY MENTAL HEALTH (Reported) Cyclobenzaprine HCl 10 MG TABLET 1 TAB PO DAILY PRN pain Doxycycline Hyclate 100 MG TABLET 1 TAB PO BID PNA Escitalopram Oxalate (Lexapro) 20 MG TABLET 1 TAB PO DAILY MENTAL HEALTH ( Reported) Ezetimibe (Zetia) 10 MG TABLET 1 TAB PO DAILY MENTAL HEALTH (Reported) Hydrocodone/Acetaminophen (Vicodin 5-300 MG Tablet) 5 MG-300 MG TABLET 1 TAB PO BID pain Ibuprofen 800 MG TABLET 1 TAB PO PRN PAIN/INFLAMMATION (Reported) Lamotrigine 150 MG TABLET 1 TAB PO BID BIPOLAR (Reported) Linaclotide (Linzess) 145 MCG CAPSULE 0.5 MG PO DAILY PRN CONSTIPATION ( Reported) Meloxicam 7.5 MG TABLET 1 TAB PO DAILY PAIN CONTROL (Reported) Metformin HCl 1,000 MG TABLET 1 TAB PO DAILY DM (Reported) Metoclopramide HCl 5 MG TABLET 1 TAB PO PRN GI (Reported) Omeprazole 40 MG CAPSULE.DR 1 CAP PO DAILY ACID REFLUX (Reported) Oxycodone HCl/Acetaminophen (Percocet 5-325 MG Tablet) 5 MG-325 MG TABLET 1 TAB PO 4 TIMES/DAY PRN pain Pravastatin Sodium 20 MG TABLET 1 TAB PO DAILY CHOLESTEROL (Reported) Prednisone 20 MG TABLET 1 TAB PO BID copd Solifenacin Succinate (Vesicare) 5 MG TABLET 1 TAB PO DAILY INCONTINENCE ( Reported) Suvorexant (Belsomra) 20 MG TABLET 1 TAB PO QPM SLEEP (Reported) Tiotropium Br/Olodaterol HCl (Stiolto Respimat Inhal [place]) 2.5 MCG-2.5 MCG/ ACTUATION MIST.INHAL 1 PUFF INH BID EMPHYSEMA (Reported) Current Medications: Current Medications Sig/Laura Start time Last Medication Dose Route Stop Time Status Admin Acetaminophen 650 MG Q4P PRN 10/23 1830 AC PO Albuterol Sulfate 3 ML EVERY 4 HRS/AWAKE 10/24 0800 AC 10/25 INH 1112 Alprazolam 0.25 MG ONCE ONE 10/24 2230 DC 10/24 PO 10/24 2231 2259 Aripiprazole 15 MG DAILY 10/24 1000 AC 10/25 PO 1031 Azithromycin 500 MG DAILY 10/24 1000 AC 10/25 Sodium Chloride 250 ML IV 1026 Ceftriaxone Sodium 1,000 MG DAILY 10/24 1000 AC 10/25 IV 1025 Cyclobenzaprine HCl 10 MG DAILY PRN 10/24 0245 AC 10/24 PO 0235 Escitalopram Oxalate 20 MG DAILY 10/24 1000 AC 10/25 PO 1032 Ezetimibe 10 MG DAILY 10/24 1000 AC 10/25 PO 1032 Heparin Sodium 5,000 UNIT Q8 10/23 2200 AC 10/25 (Porcine) SC 0651 Insulin Aspart 0 TIDAC 10/24 0800 AC 10/24 SC 1727 Lamotrigine 150 MG BID 10/23 2200 AC 10/25 PO 1032 Lidocaine 1 PAT DAILY 10/25 1000 AC 10/25 EXT 1050 Methylprednisolone 40 MG Q8 10/25 1400 AC IV Methylprednisolone 40 MG BID 10/24 2200 DC 10/25 IV 1025 Methylprednisolone 40 MG Q8 10/23 2200 DC 10/24 IV 1426 Nicotine 7 MG DAILY 10/24 1333 AC 10/24 TOP 2136 Omeprazole 40 MG DAILY AC 10/24 0700 AC 10/25 PO 0651 Oxybutynin Chloride 5 MG DAILY 10/24 1000 AC 10/25 PO 1032 Oxycodone/ 1 TAB ONCE ONE 10/24 2230 DC 10/24 Acetaminophen PO 10/24 2231 2259 Pravastatin Sodium 20 MG DAILY 10/24 1000 AC 10/25 PO 1031 Review of Systems Review of Systems All Other Systems: Reviewed and Negative Past History Travel History Traveled to [place] past 21 day No Medical History Blood Transfusion Hx: No Neurological: NONE EENT: allergies Cardiovascular: hypertension, hyperlipidemia Respiratory: bronchitis, COPD, emphysema, pneumonia Gastrointestinal: constipation Hepatic: NONE Renal: MULTIPLE CYST ON KIDNEYS AIDE UTI Musculoskeletal: NONE Psychiatric: anxiety, bipolar disease, depression Endocrine: diabetes Blood Disorders: NONE 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 Home Who Do You Live With? self Services at Home: Oxygen Primary Language: [place] Smoking Status: Current Everyday Smoker (approximately 50 pack years) ETOH Use: denies use Illicit Drug Use: denies illicit drug use Living Will? yes Functional Ability ADLs Independent: dressing, eating, toileting, bathing. Ambulation: cane IADLs Independent: shopping, housework, finances, food prep, telephone, medication admin. Needs Assist: transportation. Exam & Diagnostic Data Last 24 Hrs of Vital Signs/I&O Vital Signs Date Time Temp Pulse Resp B/P B/P Pulse O2 O2 Flow FiO2 Mean Ox Delivery Rate 10/25 0644 97.9 96 22 130/80 97 10/25 0640 94 Nasal 4.0L Cannula 10/25 0000 Nasal 4.0L Cannula 10/24 2230 98.3 102 20 122/60 94 Nasal Cannula 10/24 1853 Nasal 4.0L Cannula 10/24 1600 96 Nasal 4.0L Cannula 10/24 1531 98.0 80 18 120/70 95 Intake & Output 10/25 1600 10/25 0800 10/25 0000 Intake Total 600 Output Total Balance 600 Intake, Oral 600 Physical Exam General Appearance: no apparent distress, alert, awake, comfortable Head: atraumatic, normal appearance Eyes: Bilateral: PERRL. Neck: supple Respiratory: bilateral wheezing through out all lung thompson with diminished breath sounds Cardiovascular: RRR with diminished heart sounds Gastrointestinal: normal bowel sounds, soft, non-tender Extremities: no edema Skin: intact, normal color, warm/dry Last 48 Hrs of Labs/Zeus: Laboratory Tests 10/25/17 0740: Anion Gap 7, Estimated GFR > 60, BUN/Creatinine Ratio 27.8 H, CBC w Diff NO MAN DIFF REQ, RBC 4.10 L, MCV 91.9, MCH 30.9, RDW 13.6, MPV 8.7, Gran % 87.4 H, Lymphocytes % 5.2 L, Monocytes % 7.3, Eosinophils % 0, Basophils % 0.1, Absolute Granulocytes 17.3 H, Absolute Lymphocytes 1.0 L, Absolute Monocytes 1.4 H, Absolute Eosinophils 0, Absolute Basophils 0, PUBS MCHC 33.6 10/24/17 1422: Troponin I < 0.01 10/24/17 0813: Anion Gap 9, Estimated GFR > 60, BUN/Creatinine Ratio 31.3 H, Calcium 9.7, 25- OH Vitamin D Total 35.8, CBC w Diff NO MAN DIFF REQ, RBC 3.98 L, MCV 92.2, MCH 30.9, RDW 13.7, MPV 9.0, Gran % 90.5 H, Lymphocytes % 4.5 L, Monocytes % 4.8, Eosinophils % 0.1, Basophils % 0.1, Absolute Granulocytes 16.3 H, Absolute Lymphocytes 0.8 L, Absolute Monocytes 0.9 H, Absolute Eosinophils 0, Absolute Basophils 0, PUBS MCHC 33.6 10/24/17 0350: Troponin I < 0.01 10/23/172149: Urine Color YEL, Urine Clarity CLEAR, Urine pH 6.5, Ur Specific Bir[place] 1.010, Urine Protein NEG, Urine Ketones NEG, Urine Nitrite NEG, Urine Bilirubin NEG, Urine Urobilinogen 0.2, Ur Leukocyte Esterase NEG, Ur Microscopic EXAM NOT REQUIRED, Urine Hemoglobin NEG, Urine Glucose >=1000 H 10/23/17 1400: Anion Gap 11, Estimated GFR > 60, BUN/Creatinine Ratio 28.9 H, Glucose 141 H, Calcium 9.7, Total Bilirubin 0.5, AST 22, ALT 38, Alkaline Phosphatase 84, Troponin I < 0.01, Xsp-[id number] Pept 43.3, Total Protein 6.5, Albumin 3.8, Globulin 2.7, Albumin/Globulin Ratio 1.4, CBC w Diff MAN DIFF ORDERED, RBC 4.17 L, MCV 91.6, MCH 30.5, RDW 13.7, MPV 8.8, Gran % 89.8 H, Lymphocytes % 6.7 L, Monocytes % 3.3, Eosinophils % 0.2, Basophils % 0, Absolute Granulocytes 10.3 H , Absolute Lymphocytes 0.8 L, Absolute Monocytes 0.4, Absolute Eosinophils 0, Absolute Basophils 0, Platelet Estimate VERIFIED BY SMEAR, Normocytic RBCs VERIFIED, Normochromic RBCs VERIFIED, PUBS MCHC 33.3 Microbiology 10/23 2150 URINE ROUT: Legionella Antigen - COMP 10/23 2150 URINE ROUT: Streptococcus pneumoniae Antigen (M - COMP 10/23 1758 NASOPHARYN: Influenza Virus A & B Rapid Smear - COMP Assessment/Plan Impression/Plan: 1. Community acquired pneumonia - patient failed out patient treatment. 2. Pleural effusion with elevated leukocytosis, rule out parapneumonic infection versus empyema. 3. Elevated WBC count may be due to steroids. 4. AECOPD with worsening bronchospasm and shortness of breath. 5. Multiple co-morbidities including DM, O2 dependent COPD (3 L baseline), HLD, anxiety, bipolar disorder. Recommendations: * Increase Solumedrol to 40 mg every 6 hours. * Check a follow up CXR - increased effusion, need for thoracentesis? * Continue to follow culture data. * Continue on ceftriaxone and azithro pending results. * Continue nebs/TRC. * O2 titration - keep sats > 92% at rest and > 88% with exertionri. * Medical managment as per primary team. * DVT prophylaxis at all times. * Continue all supportive care. * Plan discussed with patient and primary team. * Thank you for the consult. Will continue to follow and make further recommendations as necessary. Consult Acknowledgment - Thank you for your consult request.
[2017-10-25 14:24] VITALS: BP 138/70
--- NOTE | 2017-10-25 14:34 | RADIOLOGY REPORT ---
EXAMINATION: XR PORTABLE CHEST CLINICAL INFORMATION: Worsening shortness of breath. On antibiotics and steroid. Assess for pneumonia. COMPARISON: Chest x-ray 10/23/2017. CT scan of the chest 10/10/2017. TECHNIQUE: Portable 80 degree semiupright view of the chest was obtained. FINDINGS: The lung thompson are moderately well-expanded, similar compared to the prior study. There is a small right pleural effusion with underlying opacity which may be consistent with atelectasis or consolidation. It appears similar compared to the prior study. Linear opacity at the left base is consistent with atelectasis. The cardiac silhouette is normal in size. The aortic arch is calcified and unfolded and the descending artery is tortuous. The central pulmonary vasculature is normal. There are no acute osseous findings. The previously described rib fractures on the right are not well visualized. IMPRESSION: 1. There has been no interval change in the small right pleural effusion with underlying opacity which may be consistent with atelectasis or consolidation. 2. Linear opacities at the left base are consistent with subsegmental atelectasis.
[2017-10-25 22:21] VITALS: BP 146/84
[2017-10-26 06:48] VITALS: BP 150/80
[2017-10-26 08:26] LABS: ABSOLUTE BASOPHIL COUNT 0.1 /CUMM (0.0-0.2); ABSOLUTE EOSINOPHIL COUNT 0 /CUMM (0.0-0.7); ABSOLUTE LYMPH COUNT 0.9 /CUMM (1.2-3.4); ABSOLUTE MONOCYTE COUNT 1.2 /CUMM (0.10-0.60); BASOPHIL % 0.3 % (0.0-2.0); EOSINOPHIL % 0 % (0-5); GRANULOCYTE % 89.9 % (42.2-75.2); HEMATOCRIT 38.6 % (37-47); MEAN CORPUSCULAR HGB 30.5 PG (27.0-31.0); MEAN CORPUSCULAR HGB CONC 33.2 G/DL (33.0-37.0); MEAN CORPUSCULAR VOLUME 91.7 FL (81.0-99.0); MEAN PLATELET VOLUME 9.1 FL (7.4-10.4); PLATELET COUNT 313 /CUMM (130-400); RED BLOOD CELL CT 4.21 /CUMM (4.20-5.40); WHITE BLOOD CELL COUNT 21.2 /CUMM (4.8-10.8)
--- NOTE | 2017-10-26 11:10 | PN- Pulmonary ---
Subjective HPI/Critical Care Issues: Patient feels somewhat improved she was smoking up until hospitalization. Objective Current Medications: Current Medications Sig/Laura Start time Last Medication Dose Route Stop Time Status Admin Acetaminophen 650 MG Q4P PRN 10/23 1830 AC PO Albuterol Sulfate 3 ML EVERY 4 HRS/AWAKE 10/24 0800 AC 10/26 INH 0837 Alprazolam 0.25 MG ONCE ONE 10/25 2215 DC 10/25 PO 10/25 2216 2315 Aripiprazole 15 MG DAILY 10/24 1000 AC 10/26 PO 0915 Azithromycin 500 MG DAILY 10/24 1000 AC 10/26 Sodium Chloride 250 ML IV 0916 Ceftriaxone Sodium 1,000 MG DAILY 10/24 1000 AC 10/26 IV 0916 Cyclobenzaprine HCl 10 MG DAILY PRN 10/24 0245 AC 10/24 PO 0235 Escitalopram Oxalate 20 MG DAILY 10/24 1000 AC 10/26 PO 0914 Ezetimibe 10 MG DAILY 10/24 1000 AC 10/26 PO 0914 Heparin Sodium 5,000 UNIT Q8 10/23 2200 AC 10/26 (Porcine) SC 0548 Insulin Aspart 0 TIDAC 10/24 0800 AC 10/26 SC 0914 Lamotrigine 150 MG BID 10/23 2200 AC 10/26 PO 0915 Lidocaine 1 PAT DAILY 10/25 1205 DC EXT Lidocaine 1 PAT DAILY 10/25 1000 AC 10/26 EXT 0917 Methylprednisolone 40 MG Q6 10/25 1800 AC 10/26 IV 0548 Methylprednisolone 40 MG Q8 10/25 1400 DC 10/25 IV 1407 Nicotine 7 MG DAILY 10/24 1333 AC 10/26 TOP 0914 Omeprazole 40 MG DAILY AC 10/24 0700 AC 10/26 PO 0549 Oxybutynin Chloride 5 MG DAILY 10/24 1000 AC 10/26 PO 0915 Oxycodone/ 1 TAB Q6P PRN 10/25 1215 AC 10/26 Acetaminophen PO 0549 Pravastatin Sodium 20 MG DAILY 10/24 1000 AC 10/26 PO 0914 Vital Signs & I&O Last 24 Hrs of Vitals and I&O: Vital Signs Date Time Temp Pulse Resp B/P B/P Pulse O2 O2 Flow FiO2 Mean Ox Delivery Rate 10/26 0839 89 Nasal 3.0L Cannula 10/26 0757 Nasal 4.0L Cannula 10/26 0648 97.5 113 22 150/80 91 Nasal 3.0L Cannula 10/26 0000 Nasal 4.0L Cannula 10/25 2221 98.7 105 24 146/84 94 Nasal 3.0L Cannula 10/25 1615 94 Nasal 3.0L Cannula 10/25 1424 98.7 101 20 138/70 90 Nasal Cannula 10/25 1112 92 Nasal 3.0L Cannula Intake & Output 10/26 1600 10/26 0800 10/26 0000 Intake Total 600 600 Output Total Balance 600 600 Intake, Oral 600 600 Since saturation 3 L 80 9091% 3 L is her baseline exam for chest shows diminished breath sounds are no wheezes cardiac exam shows a regular S1 and S2 without murmurs Impression/Plan Impression/Plan Impression/Plan: 66-year-old woman with advanced COPD admitted with new acquired pneumonia and hypoxic respiratory failure. Recommendations: Repeat PA and lateral chest x-ray to evaluate pleural effusion adjust her oxygen flow rate to maintain saturations greater than 90%. Follow-up cultures. Patient has been counseled regarding the need for smoking cessation
--- NOTE | 2017-10-26 12:07 | PN- Att Addend ---
Attending Addendum Attending Brief Note 66-year-old female with past medical history significant for oxygen dependent COPD, active smoker, diabetes mellitus, anxiety, bipolar has been admitted to the floor for COPD exacerbation and community-acquired pneumonia. Patient was seen and examined on the bedside and reported that her wheezing has improved and feels much better and wants to go home for the [place] and she wants to spend the status with her kids and grandkids. Reported that previously she used to heard wheeze by herself but now she cannot tolerate it anymore. On examination minimal wheeze on lung examination. Chest x-ray showed minimal effusion. Currently treated with steroids and antibiotics along with TRC nebs. Will get a repeat chest x-ray PA and lateral to see the progress of the pleural effusion. We'll follow blood cultures. Will complete the course of IV antibiotics and follow on blood cultures. Continue the rest of his home medications, counseling done on smoking and DVT prophylaxis.
--- NOTE | 2017-10-26 12:28 | PN- Housestaff ---
Subjective Follow-up For: COPD exacerbation Possible CAP Subjective: - No overnight events. Patient had no specific complaint and felt generally improved today on wheezing and ambulation with less respiratory effort. She is currently breathing comfortably under 4L. Patient stated that she was seen in ER 4-5 times in the past month but this is the first time being admitted. SHe would like to go home before [facility] but understood that she may need to stay longer if her clinical conditions would not allow discharge. - Patient denied fever/palpitation/Ab pain/Leg swelling currently. Patient c/o of her rib pain from rib fracture a month ago, rated 3/10 after percocet and lidoderm. - Patient was continued on prescribed diet regimen without specific intolerance/ request. - Patient denied any urinary or bowel movement discomforts. - Patient had no other specific complaint. Review of Systems Constitutional: Reports: see HPI. Objective Last 24 Hrs of Vital Signs/I&O Vital Signs Date Time Temp Pulse Resp B/P B/P Pulse O2 O2 Flow FiO2 Mean Ox Delivery Rate 10/26 0839 89 Nasal 3.0L Cannula 10/26 0757 Nasal 4.0L Cannula 10/26 0648 97.5 113 22 150/80 91 Nasal 3.0L Cannula 10/26 0000 Nasal 4.0L Cannula 10/25 2221 98.7 105 24 146/84 94 Nasal 3.0L Cannula 10/25 1615 94 Nasal 3.0L Cannula 10/25 1424 98.7 101 20 138/70 90 Nasal Cannula Intake & Output 10/26 1600 10/26 0800 10/26 0000 Intake Total 600 600 Output Total Balance 600 600 Intake, Oral 600 600 Physical Exam General Appearance: Alert, Oriented X3, Cooperative, No Acute Distress Cardiovascular: Regular Rate Lungs: Normal Air Movement, B/L wheeze Abdomen: Normal Bowel Sounds, Soft, No Tenderness Neurological: Normal Speech Extremities: No Edema, Normal Pulses Current Medications: Current Medications Sig/Laura Start time Last Medication Dose Route Stop Time Status Admin Acetaminophen 650 MG Q4P PRN 10/23 1830 AC PO Albuterol Sulfate 3 ML EVERY 4 HRS/AWAKE 10/24 0800 AC 10/26 INH 0837 Alprazolam 0.25 MG ONCE ONE 10/25 2215 DC 10/25 PO 10/25 2216 2315 Aripiprazole 15 MG DAILY 10/24 1000 AC 10/26 PO 0915 Azithromycin 500 MG DAILY 10/24 1000 AC 10/26 Sodium Chloride 250 ML IV 0916 Ceftriaxone Sodium 1,000 MG DAILY 10/24 1000 AC 10/26 IV 0916 Cyclobenzaprine HCl 10 MG DAILY PRN 10/24 0245 AC 10/24 PO 0235 Escitalopram Oxalate 20 MG DAILY 10/24 1000 AC 10/26 PO 0914 Ezetimibe 10 MG DAILY 10/24 1000 AC 10/26 PO 0914 Heparin Sodium 5,000 UNIT Q8 10/23 2200 AC 10/26 (Porcine) SC 0548 Insulin Aspart 0 TIDAC 10/24 0800 AC 10/26 SC 0914 Lamotrigine 150 MG BID 10/23 2200 AC 10/26 PO 0915 Lidocaine 1 PAT DAILY 10/25 1205 DC EXT Lidocaine 1 PAT DAILY 10/25 1000 AC 10/26 EXT 0917 Methylprednisolone 40 MG Q6 10/25 1800 AC 10/26 IV 0548 Methylprednisolone 40 MG Q8 10/25 1400 DC 10/25 IV 1407 Nicotine 7 MG DAILY 10/24 1333 AC 10/26 TOP 0914 Omeprazole 40 MG DAILY AC 10/24 0700 AC 10/26 PO 0549 Oxybutynin Chloride 5 MG DAILY 10/24 1000 AC 10/26 PO 0915 Oxycodone/ 1 TAB Q6P PRN 10/25 1215 AC 10/26 Acetaminophen PO 0549 Pravastatin Sodium 20 MG DAILY 10/24 1000 AC 10/26 PO 0914 Last 24 Hrs of Lab/Zeus Results Last 24 Hrs of Labs/Mics: Laboratory Tests 10/26/17 0738: Anion Gap 10, Estimated GFR > 60, BUN/Creatinine Ratio 36.3 H, CBC w Diff MAN DIFF ORDERED, RBC 4.21, MCV 91.7, MCH 30.5, RDW 14.0, MPV 9.1, Gran % 89.9 H, Lymphocytes % 4.0 L, Monocytes % 5.8, Eosinophils % 0, Basophils % 0.3, Absolute Granulocytes 19.0 H, Absolute Lymphocytes 0.9 L, Absolute Monocytes 1.2 H, Absolute Eosinophils 0, Absolute Basophils 0.1, Platelet Estimate ADEQUATE, Normocytic RBCs VERIFIED, Normochromic RBCs VERIFIED, PUBS MCHC 33.2 Assessment/Plan Assessment: Patient is a 65-year-old female with a PMH significant for DM, O2 dependent COPD (3 L baseline), HLD, anxiety, bipolar disorder who was brought into the ED by ambulance complaining of shortness of breath, and productive cough. #Acute hypoxic respiratory failure secondary to COPD exacerbation Patient desaturated to 80s according to EMS. She has a history of COPD and has had a productive cough for the past month which she failed outpatient steroid taper. Rapid flu test negative. Patient worsened clincally today. -TRC/Nebs - Tapered to IV Solumedrol 40 mg Q8, and will try taper Oxygen to maintain >90% Sat -Continue home albuterol #Community acquired pneumonia patient is afebrile on abx and steroids currently, leukocytosis may represent emargination secondary to steroid use or acute infectious process with pneumonia. Repeat CXR showed right pleural effusion with underlying opacity could represent pneumonia. Pleural effusion has not changed in size will not require thoracentesis at this time. - follow up Blood cultures(currently negative for growth), sputum culture - will continue with IV Azithromycin and Rocephin - pulmonary evaluation and recommendations appreciated - Repeate CXR to reassess pleural effusion. #nicotine dependence -Smoking cessation counseling given - nicotine patch #DM -Hold home metformin, begin novolog sliding scale - accuchecks TIDAC/HS #Chronic medical problems -continue with home medications including pravastatin, oxybutynin, Lexapro, Zetia, abilify, Lamictal #DVT prophylaxis -ALPS and SC heparin #Code status -Full code Problem List: 1. COPD with exacerbation 2. Rib pain on right side 3. Pneumonia Pain Ratin Pain Location: Right rib fracture Pain Goal: Pain 4 or less Pain Plan: see AP Tomorrow's Labs & Rationales: CBC
[2017-10-26 14:16] VITALS: BP 120/70
--- NOTE | 2017-10-26 19:03 | RADIOLOGY REPORT ---
EXAMINATION: XR PORTABLE CHEST CLINICAL INFORMATION: Shortness of breath. Cough. Wheezing. COMPARISON: Chest x-ray 10/25/2017 TECHNIQUE: Portable frontal view of the chest was obtained. 5:59 PM FINDINGS: Persistent hazy opacity with silhouetting of the diaphragm at the right lung base. This can be due to pleural effusion and underlying infiltrate/atelectasis. This density is unchanged in appearance since the exam of 10/25/2017. The left lung is clear. No pulmonary vascular congestion. Cardiomediastinal contours are unchanged. There are calcifications of the wall of aorta. IMPRESSION: No change since chest x-ray 10/25/2017. Persistent density at right lung base due to pleural effusion and probable underlying infiltrate/atelectasis.
[2017-10-26 22:15] VITALS: BP 132/70
[2017-10-27 06:00] VITALS: BP 136/74
--- NOTE | 2017-10-27 08:05 | PN- Housestaff ---
Chrissy FREEDMAN,[place] 10/27/17 0804: Subjective Follow-up For: Hemothorax COPD exacerbation Subjective: Patient was seen and examined at bedside. She had no acute events overnight. She states that she is feeling better with improvement in her cough, shortness of breath, and wheezing. She states that her chest pain has resolved. She denies any nausea, vomiting, fever, chills. Review of Systems Constitutional: Denies: chills, fever. Cardiovascular: Denies: chest pain, palpitations. Respiratory: Reports: cough, short of breath, wheezing. Gastrointestinal: Denies: constipation, melena, nausea, bloody stool, vomiting. Genitourinary: Reports: no symptoms. Musculoskeletal: Reports: no symptoms. Objective Last 24 Hrs of Vital Signs/I&O Vital Signs Date Time Temp Pulse Resp B/P B/P Pulse O2 O2 Flow FiO2 Mean Ox Delivery Rate 10/27 0732 92 Nasal 4.0L Cannula 10/27 0600 98.3 90 18 136/74 92 Nasal 4.0L Cannula 10/27 0506 94 Nasal 4.0L Cannula 10/27 0000 92 Nasal 4.0L Cannula 10/26 2215 98.7 97 22 132/70 92 Nasal Cannula 10/26 1653 92 Nasal 4.0L Cannula 10/26 1600 Nasal 4.0L Cannula 10/26 1416 97.7 80 17 120/70 94 10/26 0839 89 Nasal 3.0L Cannula Intake & Output 10/27 1600 10/27 0800 10/27 0000 Intake Total 360 900 Output Total Balance 360 900 Intake, Oral 360 900 Physical Exam General Appearance: Alert, Oriented X3, Cooperative, No Acute Distress Skin Temp/Moisture Exam: Warm/Dry Sepsis Skin Exam (color): Normal for Ethnicity Cardiovascular: Regular Rate, Normal S1, Normal S2 Lungs: diminished breath sounds most significant of the right lower lung field and scant wheezing, improved since last exam done on 10/25 Abdomen: Normal Bowel Sounds, Soft, No Tenderness Neurological: Normal Speech, Sensation Intact Extremities: No Clubbing, No Cyanosis, No Edema Current Medications: Current Medications Sig/Laura Start time Last Medication Dose Route Stop Time Status Admin Acetaminophen 650 MG Q4P PRN 10/23 1830 AC PO Albuterol Sulfate 3 ML EVERY 4 HRS/AWAKE 10/24 0800 AC 10/27 INH 0452 Alprazolam 0.25 MG ONCE ONE 10/265 DC 10/26 PO 10/26 2216 2250 Aripiprazole 15 MG DAILY 10/24 1000 AC 10/26 PO 0915 Azithromycin 500 MG DAILY 10/24 1000 AC 10/26 Sodium Chloride 250 ML IV 0916 Ceftriaxone Sodium 1,000 MG DAILY 10/24 1000 AC 10/26 IV 0916 Cyclobenzaprine HCl 10 MG DAILY PRN 10/24 0245 AC 10/24 PO 0235 Escitalopram Oxalate 20 MG DAILY 10/24 1000 AC 10/26 PO 0914 Ezetimibe 10 MG DAILY 10/24 1000 AC 10/26 PO 0914 Heparin Sodium 5,000 UNIT Q8 10/23 2200 AC 10/27 (Porcine) SC 0429 Insulin Aspart 0 TIDAC 10/24 0800 AC 10/26 SC 1703 Lamotrigine 150 MG BID 10/23 2200 AC 10/26 PO 2046 Lidocaine 1 PAT DAILY 10/25 1000 AC 10/26 EXT 0917 Methylprednisolone 40 MG Q8 10/26 1400 AC 10/27 IV 0428 Methylprednisolone 40 MG Q6 10/25 1800 DC 10/26 IV 0548 Nicotine 7 MG DAILY 10/24 1333 AC 10/26 TOP 0914 Omeprazole 40 MG DAILY AC 10/24 0700 AC 10/27 PO 0501 Oxybutynin Chloride 5 MG DAILY 10/24 1000 AC 10/26 PO 0915 Oxycodone/ 1 TAB Q6P PRN 10/25 1215 AC 10/27 Acetaminophen PO 0429 Pravastatin Sodium 20 MG DAILY 10/24 1000 AC 10/26 PO 0914 Last 24 Hrs of Lab/Zeus Results Last 24 Hrs of Labs/Mics: Laboratory Tests 10/27/172044: Anion Gap 7, Estimated GFR > 60, BUN/Creatinine Ratio 42.5 H, Lactate Dehydrogenase 742 H, Total Protein 6.4, Albumin 3.4 L, CBC w Diff NO MAN DIFF REQ, RBC 4.28, MCV 93.1, MCH 30.4, RDW 13.7, MPV 8.9, Gran % 81.9 H, Lymphocytes % 8.1 L, Monocytes % 9.8 H, Eosinophils % 0.1, Basophils % 0.1, Absolute Granulocytes 13.4 H, Absolute Lymphocytes 1.3, Absolute Monocytes 1.6 H, Absolute Eosinophils 0, Absolute Basophils 0, PUBS MCHC 32.7 L 10/27/171708: Pleural pH 7.21 10/27/17 170: Fluid WBC 7800 H, Fld Mesothelial Cells 39, Fld Total RBCs Counted 1280973 H 10/27/171708: Lymphocytes 21, % Normal PMNs 37, Misc Hematology Test 3, Phlebotomy Draw Site RT.THORA, Fluid Glucose 100, Fluid Total Protein 4.8, Fluid Albumin 2.5, Fluid LDH 3178, Fluid Amylase 41 10/27/17 1240: PT 10.7, INR 1.02, APTT 25 Microbiology 10/27 1709 BODY FLUID: Body Fluid Culture - RECD 10/27 1709 BODY FLUID: Gram Stain - RECD Orders Radiology Findings: Chest CT 1. A moderate-sized dependent right pleural effusion is new from the prior CT and relatively dense. This may correspond to hemothorax related to the adjacent eighth and ninth rib fractures. A complex parapneumonic effusion is possible, though felt to be less likely as the opacification of the adjacent right lower lobe has more of the appearance of atelectasis than consolidation. 2. Centrilobular emphysema. CXR Small right pleural effusion and mild right basilar atelectasis status post chest tube placement. No pneumothorax. Assessment/Plan Assessment: Patient is a 65-year-old female with a PMH significant for DM, O2 dependent COPD (3 L baseline), HLD, anxiety, bipolar disorder who was brought into the ED by ambulance complaining of shortness of breath, and productive cough. #Hemothorax Patient went for noncontrast CT today for reevaluation of right pleural effusion. Based on the results pulmonary recommended chest tube placement for suspected empyema. Chest tube placed which drained blood. CT surgery was consulted who recommended chest tube placed to Pleur-evac suction. Repeat chest x-ray showed shrinkage of the right-sided pleural effusion and no pneumothorax. -Will follow-up on drainage in the a.m., 800 mL's of bloody fluid in the drainage compartment was evaluated by CT surgery -We'll monitor CBC closely for acute blood loss anemia -Pleural fluid studies showed large number of RBCs consistent with hemothorax #Acute hypoxic respiratory failure secondary to COPD exacerbation Patient desaturated to 80s according to EMS. She has a history of COPD and has had a productive cough for the past month which she failed outpatient steroid taper. Rapid flu test negative. Patient worsened clincally today. -TRC/Nebs - Tapered to IV Solumedrol 40 mg twice a day, and will try taper Oxygen to maintain >90% Sat -Continue home albuterol #Community acquired pneumonia patient is afebrile on abx and steroids currently, leukocytosis may represent emargination secondary to steroid use or acute infectious process with pneumonia. Repeat CXR showed right pleural effusion with underlying opacity could represent pneumonia. Pleural effusion has not changed in size will not require thoracentesis at this time. - follow up Blood cultures(currently negative for growth), sputum culture - will continue with IV Azithromycin and Rocephin - pulmonary evaluation and recommendations appreciated #nicotine dependence -Smoking cessation counseling given - nicotine patch #DM -Hold home metformin, begin novolog sliding scale - accuchecks TIDAC/HS #Chronic medical problems -continue with home medications including pravastatin, oxybutynin, Lexapro, Zetia, abilify, Lamictal #DVT prophylaxis -ALPS and SC heparin #Code status -Full code Problem List: 1. COPD with exacerbation 2. Hemothorax Pain Ratin Pain Location: none Pain Goal: Remain pain free Pain Plan: pain pathway Tomorrow's Labs & Rationales: cbc, bep Jenna FREEDMAN,[place] 10/27/17 1214: Attending MD Review Statement Attending Statement Attending MD Statement: examined this patient, discuss w/resident/PA/TEASEL SETTER, agreed w/resident/PA/TEASEL SETTER, reviewed EMR data (avail), discussed with case mgmt, reviewed images, amended to note Attending Assessment/Plan: 66-year-old female with past medical history significant for oxygen dependent COPD, active smoker, diabetes mellitus, anxiety, bipolar has been admitted to the floor for COPD exacerbation and community-acquired pneumonia. Patient was seen and examined on the bedside and reported that she is feeling much better with improved shortness of breath. On examination minimal wheeze on lung examination and decreased breath sounds in the right lower base. Chest x-ray showed minimal effusion. Repeat CT was done that shows increase in the effusion. [employer] on board. Will call the IR to drain the fluid to rule her out for any parapneumonic effusion/empyema. Respiratory culture so far negative, will continue on IV antibiotics and will taper the steroids. Will follow the results of the effusion and will put her chest tube if the effusion is empyemic. We'll closely monitor the patient.
--- NOTE | 2017-10-27 10:12 | PN- Pulmonary ---
Subjective HPI/Critical Care Issues: She feels improved with decreased shortness of breath. X-ray shows right lower lobe density and suspected effusion. Objective Current Medications: Current Medications Sig/Laura Start time Last Medication Dose Route Stop Time Status Admin Acetaminophen 650 MG Q4P PRN 10/23 1830 AC PO Albuterol Sulfate 3 ML EVERY 4 HRS/AWAKE 10/24 0800 AC 10/27 INH 0836 Alprazolam 0.25 MG ONCE ONE 10/26 2215 DC 10/26 PO 10/26 2216 2250 Aripiprazole 15 MG DAILY 10/24 1000 AC 10/27 PO 0916 Azithromycin 500 MG DAILY 10/24 1000 AC 10/27 Sodium Chloride 250 ML IV 0917 Ceftriaxone Sodium 1,000 MG DAILY 10/24 1000 AC 10/27 IV 0913 Cyclobenzaprine HCl 10 MG DAILY PRN 10/24 0245 AC 10/24 PO 0235 Escitalopram Oxalate 20 MG DAILY 10/24 1000 AC 10/27 PO 0916 Ezetimibe 10 MG DAILY 10/24 1000 AC 10/27 PO 0916 Heparin Sodium 5,000 UNIT Q8 10/23 2200 AC 10/27 (Porcine) SC 0429 Insulin Aspart 0 TIDAC 10/24 0800 AC 10/27 SC 0912 Lamotrigine 150 MG BID 10/23 2200 AC 10/27 PO 0916 Lidocaine 1 PAT DAILY 10/25 1000 AC 10/27 EXT 0915 Methylprednisolone 40 MG Q8 10/26 1400 AC 10/27 IV 0428 Methylprednisolone 40 MG Q6 10/25 1800 DC 10/26 IV 0548 Nicotine 7 MG DAILY 10/24 1333 AC 10/27 TOP 0915 Omeprazole 40 MG DAILY AC 10/24 0700 AC 10/27 PO 0501 Oxybutynin Chloride 5 MG DAILY 10/24 1000 AC 10/27 PO 0916 Oxycodone/ 1 TAB Q6P PRN 10/25 1215 AC 10/27 Acetaminophen PO 0429 Pravastatin Sodium 20 MG DAILY 10/24 1000 AC 10/27 PO 0916 Vital Signs & I&O Last 24 Hrs of Vitals and I&O: Vital Signs Date Time Temp Pulse Resp B/P B/P Pulse O2 O2 Flow FiO2 Mean Ox Delivery Rate 10/27 0838 94 Nasal 4.0L Cannula 10/27 0732 92 Nasal 4.0L Cannula 10/27 0600 98.3 90 18 136/74 92 Nasal 4.0L Cannula 10/27 0506 94 Nasal 4.0L Cannula 10/27 0000 92 Nasal 4.0L Cannula 10/26 2215 98.7 97 22 132/70 92 Nasal Cannula 10/26 1653 92 Nasal 4.0L Cannula 10/26 1600 Nasal 4.0L Cannula 10/26 1416 97.7 80 17 120/70 94 Intake & Output 10/27 1600 10/27 0800 10/27 0000 Intake Total 360 900 Output Total Balance 360 900 Intake, Oral 360 900 And saturation 4 L 94% exam for chest shows minimal wheezing and decreased breath sounds at the right base cardiac exam shows regular S1 and S2 without murmurs. Impression/Plan Impression/Plan Impression/Plan: 66-year-old woman with advanced COPD admitted with new community acquired pneumonia and hypoxic respiratory failure. Concern is raised over possible parapneumonic effusion/empyema in view of systems leukocytosis and radiographic findings Recommendations: Should have CT scan of her chest noncontrast to better evaluate right pleural effusion if white count remains elevated would need to pursue thoracentesis to exclude parapneumonic/empyema. Taper FiO2 his saturations allow. Decrease Solu -Medrol to every 12 hours
--- NOTE | 2017-10-27 12:21 | CT SCAN REPORT ---
EXAMINATION: CT CHEST WITHOUT CONTRAST CLINICAL INFORMATION: Persistent shortness of breath and leukocytosis. Presumptive diagnosis: COPD exacerbation or pneumonia. COMPARISON: Radiograph dated 10/26/[address] dated 10/10/2017 TECHNIQUE: Multidetector volumetric CT imaging of the chest was done. Axial MIP volume rendering provided. Sagittal and coronal reformatted images were obtained. DLP: 543 mGy-cm FINDINGS: LUNGS: There is dependent segmental atelectasis in the right lower lobe posteriorly and more mild atelectasis in the posterior aspect of the right upper lobe, relaxation atelectasis related to the adjacent effusion. Minimal atelectasis is present in the left lower lobe dependently. No consolidation. Moderate to severe, apical predominant centrilobular emphysema is again noted. No discrete pulmonary nodules are identified. A vertical septation in the trachea likely corresponds to mucus secretions. Central airways are otherwise clear. MEDIASTINUM: Calcific atherosclerosis is present in the coronary arteries and thoracic aorta. No aneurysmal dilatation. Heart is normal in size. No pericardial effusion. PLEURA: Moderate-sized dense right pleural effusion (41 Hounsfield units) dependently layering. No appreciable internal nodularity or rind. No left-sided effusion. AXILLA: No lymphadenopathy. UPPER ABDOMEN: Cholelithiasis is noted. No findings of cholecystitis on these images. A hyperdense left renal cyst is partially imaged, likely hemorrhagic. Multiple hypodense right renal cysts are again noted. Moderate amount of stool is present in the imaged portion of the colon. OSSEOUS STRUCTURES: Moderate multilevel degenerative disc disease and hyperkyphosis are present throughout the thoracic spine. No acute fractures are identified in the thoracic spine. Vertebral body heights are normal. As seen on the prior study, there are fractures of the eighth and ninth ribs anterolaterally. There is no evidence of osseous union. The eighth rib fracture is slightly distracted (3 mm) increased from prior. IMPRESSION: 1. A moderate-sized dependent right pleural effusion is new from the prior CT and relatively dense. This may correspond to hemothorax related to the adjacent eighth and ninth rib fractures. A complex parapneumonic effusion is possible, though felt to be less likely as the opacification of the adjacent right lower lobe has more of the appearance of atelectasis than consolidation. 2. Centrilobular emphysema.
[2017-10-27 13:29] LABS: PT 10.7 SEC (9.4-12.5); PTT 25 SEC (25-37)
[2017-10-27 14:31] VITALS: BP 122/70
--- NOTE | 2017-10-27 17:40 | RADIOLOGY REPORT ---
EXAMINATION:\H\ \N\XR CHEST CLINICAL INFORMATION: Status post chest tube. COMPARISON: Chest radiograph 10/26/2017. CT chest 10/27/2017. TECHNIQUE: Frontal view of the chest was obtained. FINDINGS: No pneumothorax. There is a right-sided chest tube projecting over the right lower lung field terminating in the medial aspect of the right hemithorax. Small right pleural effusion with minimal right basilar atelectasis. The lungs are otherwise clear. Cardiomediastinal silhouette and vasculature are within normal. No acute osseous findings. IMPRESSION: Small right pleural effusion and mild right basilar atelectasis status post chest tube placement. No pneumothorax.
--- NOTE | 2017-10-27 19:47 | PN- Thoracic Surgery ---
See Addendum Surgical Brief Attending Note Brief Attending Note: Thoracic consult called for co-management of IR tube / hemothorax. Records reviewed. IR placed right sided tube this afternoon for pleural effusion / hemothorax, which is currently placed to pleurovac suction, with about 800 mls of bloody fluid in the drainage compartment. keep IR tube to pleurovac suction for now will follow d/w
[2017-10-27 21:03] LABS: ABSOLUTE BASOPHIL COUNT 0 /CUMM (0.0-0.2); ABSOLUTE EOSINOPHIL COUNT 0 /CUMM (0.0-0.7); ABSOLUTE GRANULOCYTE CT 13.4 /CUMM (1.4-6.5); ABSOLUTE LYMPH COUNT 1.3 /CUMM (1.2-3.4); ABSOLUTE MONOCYTE COUNT 1.6 /CUMM (0.10-0.60); BASOPHIL % 0.1 % (0.0-2.0); EOSINOPHIL % 0.1 % (0-5); GRANULOCYTE % 81.9 % (42.2-75.2); HEMATOCRIT 39.8 % (37-47); MEAN CORPUSCULAR HGB 30.4 PG (27.0-31.0); MEAN CORPUSCULAR HGB CONC 32.7 G/DL (33.0-37.0); MEAN CORPUSCULAR VOLUME 93.1 FL (81.0-99.0); MEAN PLATELET VOLUME 8.9 FL (7.4-10.4); PLATELET COUNT 303 /CUMM (130-400); RBC DISTRIBUTION WIDTH 13.7 % (11.5-14.5); RED BLOOD CELL CT 4.28 /CUMM (4.20-5.40); WHITE BLOOD CELL COUNT 16.3 /CUMM (4.8-10.8)
[2017-10-27 22:26] VITALS: BP 132/68
--- NOTE | 2017-10-28 05:50 | PN- Housestaff ---
Chrissy FREEDMAN,Avery 10/28/17 0550: Subjective Follow-up For: Hemothorax COPD exacerbation Community-acquired Pneumonia Subjective: Patient seen and examined at bedside. She is resting comfortably. She had no acute events overnight. She reports feeling significantly improved since chest tube placement. She notes improvement in her wheezing and cough. She she is complaining of pain at the site of the chest tube. She currently offers no complaints and denies any shortness of breath, nausea, vomiting, fever, chills. Review of Systems Constitutional: Denies: chills, fever. Cardiovascular: Reports: chest pain (at site of chest tube). Denies: palpitations. Respiratory: Denies: cough, short of breath. Gastrointestinal: Reports: no symptoms. Genitourinary: Reports: no symptoms. Musculoskeletal: Reports: no symptoms. Objective Last 24 Hrs of Vital Signs/I&O Vital Signs Date Time Temp Pulse Resp B/P B/P Pulse O2 O2 Flow FiO2 Mean Ox Delivery Rate 10/28 0000 91 Nasal 4.0L Cannula 10/27 2226 97.7 93 16 132/68 91 Nasal Cannula 10/27 2035 Nasal 4.0L Cannula 10/27 1600 Nasal 3.0L Cannula 10/27 1431 98.2 92 20 122/70 96 10/27 0838 94 Nasal 4.0L Cannula 10/27 0732 92 Nasal 4.0L Cannula 10/27 0600 98.3 90 18 136/74 92 Nasal 4.0L Cannula Intake & Output 10/28 0800 10/28 0000 10/27 1600 Intake Total 875 Output Total 200 825 Balance -200 -825 875 Intake, IV 275 Intake, Oral 600 Output, Chest 825 Tube Drainage Output, Urine 200 Patient 200 lb Weight Physical Exam General Appearance: Alert, Oriented X3, Cooperative, No Acute Distress Skin Temp/Moisture Exam: Warm/Dry Cardiovascular: Regular Rate, Normal S1, Normal S2, No Murmurs Lungs: diffuse wheezing but much improved from yesterday, chest tube in place, no signs of leakage or saturation images Abdomen: Normal Bowel Sounds, Soft, No Tenderness Neurological: Normal Speech, Sensation Intact Extremities: No Clubbing, No Cyanosis, Trace LE edema Other Physical Findings: Chest tube output approximately 50 ML's overnight Current Medications: Current Medications Sig/Laura Start time Last Medication Dose Route Stop Time Status Admin Acetaminophen 650 MG .STK-MED ONE 10/27 2104 DC PO 10/27 2105 Acetaminophen 650 MG Q4P PRN 10/23 1830 AC 10/27 PO 210 Albuterol Sulfate 3 ML EVERY 4 HRS/AWAKE 10/24 0800 AC 10/27 INH 2035 Alprazolam 0.25 MG ONCE ONE 10/27 2200 DC 10/27 PO 10/27 2201 2210 Aripiprazole 15 MG DAILY 10/24 1000 AC 10/27 PO 0916 Azithromycin 500 MG DAILY 10/24 1000 AC 10/27 Sodium Chloride 250 ML IV 0917 Ceftriaxone Sodium 1,000 MG DAILY 10/24 1000 AC 10/27 IV 0913 Cyclobenzaprine HCl 10 MG .STK-MED ONE 10/27 2104 DC PO 10/27 2105 Cyclobenzaprine HCl 10 MG DAILY PRN 10/24 0245 AC 10/27 PO 2106 Escitalopram Oxalate 20 MG DAILY 10/24 1000 AC 10/27 PO 0916 Ezetimibe 10 MG DAILY 10/24 1000 AC 10/27 PO 0916 Heparin Sodium 5,000 UNIT Q8 10/23 2200 DC 10/27 (Porcine) SC 0429 Insulin Aspart 0 TIDAC 10/24 0800 AC 10/27 SC 1204 Lamotrigine 150 MG BID 10/23 2200 AC 10/27 PO 2210 Lidocaine 1 PAT DAILY 10/25 1000 AC 10/27 EXT 0915 Methylprednisolone 40 MG Q12 10/27 2200 AC 10/27 IV 2210 Methylprednisolone 40 MG Q8 10/26 1400 DC 10/27 IV 0428 Morphine Sulfate 1 MG Q6-PRN PRN 10/27 1745 AC 10/28 IV 0520 Nicotine 7 MG DAILY 10/24 1333 AC 10/27 TOP 0915 Nystatin 5 ML 4 TIMES/DAY 10/27 1429 AC 10/27 PO 2210 Omeprazole 40 MG DAILY AC 10/24 0700 AC 10/28 PO 0520 Oxybutynin Chloride 5 MG DAILY 10/24 1000 AC 10/27 PO 0916 Oxycodone/ 1 TAB Q6P PRN 10/25 1215 AC 10/28 Acetaminophen PO 0353 Pravastatin Sodium 20 MG DAILY 10/24 1000 AC 10/27 PO 0916 Last 24 Hrs of Lab/Zeus Results Last 24 Hrs of Labs/Mics: Laboratory Tests 10/28/17 0845: CBC w Diff NO MAN DIFF REQ, RBC 4.43, MCV 92.6, MCH 30.7, RDW 13.8, MPV 8.8, Gran % 88.5 H, Lymphocytes % 5.6 L, Monocytes % 5.7, Eosinophils % 0.1, Basophils % 0.1, Absolute Granulocytes 15.2 H, Absolute Lymphocytes 1.0 L, Absolute Monocytes 1.0 H, Absolute Eosinophils 0, Absolute Basophils 0, PUBS MCHC 33.2 10/27/172044: Anion Gap 7, Estimated GFR > 60, BUN/Creatinine Ratio 42.5 H, Lactate Dehydrogenase 742 H, Total Protein 6.4, Albumin 3.4 L, CBC w Diff NO MAN DIFF REQ, RBC 4.28, MCV 93.1, MCH 30.4, RDW 13.7, MPV 8.9, Gran % 81.9 H, Lymphocytes % 8.1 L, Monocytes % 9.8 H, Eosinophils % 0.1, Basophils % 0.1, Absolute Granulocytes 13.4 H, Absolute Lymphocytes 1.3, Absolute Monocytes 1.6 H, Absolute Eosinophils 0, Absolute Basophils 0, PUBS MCHC 32.7 L 10/27/171708: Pleural pH 7.21 10/27/171708: Fluid WBC 7800 H, Fld Mesothelial Cells 39, Fld Total RBCs Counted 1448192 H 10/27/171708: Lymphocytes 21, % Normal PMNs 37, [facility] H[facility] Test 3, Phlebotomy Draw Site RT.THORA, Fluid Glucose 100, Fluid Total Protein 4.8, Fluid Albumin 2.5, Fluid LDH 3178, Fluid Amylase 41 10/27/17 1240: PT 10.7, INR 1.02, APTT 25 Microbiology 10/27 1709 BODY FLUID: Body Fluid Culture - RES 10/27 1709 BODY FLUID: Gram Stain - RES Assessment/Plan Assessment: Patient is a 65-year-old female with a PMH significant for DM, O2 dependent COPD (3 L baseline), HLD, anxiety, bipolar disorder who was brought into the ED by ambulance complaining of shortness of breath, and productive cough. #Hemothorax Patient went for noncontrast CT today for reevaluation of right pleural effusion. Based on the results pulmonary recommended chest tube placement for suspected empyema. Chest tube placed which drained blood. CT surgery was consulted who recommended chest tube placed to Pleur-evac suction. Repeat chest x-ray showed shrinkage of the right-sided pleural effusion and no pneumothorax. Overnight chest tube output roughly 50 mL of bloody fluid -No acute drop in H/H -Pleural fluid studies showed large number of RBCs consistent with hemothorax, likely secondary to rib fractures #Acute hypoxic respiratory failure secondary to COPD exacerbation Patient desaturated to 80s according to EMS. She has a history of COPD and has had a productive cough for the past month which she failed outpatient steroid taper. Rapid flu test negative. Patient worsened clincally today. -TRC/Nebs - Tapered to IV Solumedrol 40 mg twice a day, and will try taper Oxygen to maintain >90% Sat -Continue home albuterol #Community acquired pneumonia patient is afebrile on abx and steroids currently, leukocytosis may represent emargination secondary to steroid use or acute infectious process with pneumonia. - follow up Blood cultures(currently negative for growth), sputum culture - will continue with IV Azithromycin (day 5) and Rocephin (day 5) - pulmonary evaluation and recommendations appreciated #nicotine dependence -Smoking cessation counseling given - nicotine patch #DM -Hold home metformin, continue with novolog sliding scale - accuchecks TIDAC/HS #Chronic medical problems -continue with home medications including pravastatin, oxybutynin, Lexapro, Zetia, abilify, Lamictal #DVT prophylaxis -ALPS and SC heparin #Code status -Full code Problem List: 1. Hemothorax 2. COPD with exacerbation 3. Pneumonia Pain Ratin Pain Location: chest at chest tube site Pain Goal: Remain pain free Pain Plan: pain pathway Tomorrow's Labs & Rationales: jessica West MD,Tre 10/28/17 1103: Attending MD Review Statement Attending Statement Attending MD Statement: examined this patient, discuss w/resident/PA/PROFILER OPERATOR, agreed w/resident/PA/PROFILER OPERATOR, discussed with family, reviewed EMR data (avail), discussed with nursing, discussed with case mgmt, reviewed images, amended to note Attending Assessment/Plan: 66-year-old female with past medical history significant for oxygen dependent COPD, active smoker, diabetes mellitus, anxiety, bipolar has been admitted to the floor for COPD exacerbation and community-acquired pneumonia and now currently being treated for hemothorax most likely secondary to lower rib fractures. Patient was seen and examined on the bedside and reported that she is feeling much better with improved shortness of breath. On examination minimal wheeze on lung examination and decreased breath sounds in the right lower base. Repeat CT was done that shows increase in the effusion which was consistent with hemothorax. Yesterday the hemothorax was drained by the IR status post Pleurx catheter which is attached to the Pleur-evac suction and drained about 800mls of bloody fluid but this morning it is almost nil. Will keep the Pleur-evac suction tube for now. Pain control, follow pulmonary and cardiothoracic consult consult for further long-term management of the tube.
[2017-10-28 06:45] VITALS: BP 150/80
[2017-10-28 09:35] LABS: ABSOLUTE BASOPHIL COUNT 0 /CUMM (0.0-0.2); ABSOLUTE EOSINOPHIL COUNT 0 /CUMM (0.0-0.7); ABSOLUTE GRANULOCYTE CT 15.2 /CUMM (1.4-6.5); BASOPHIL % 0.1 % (0.0-2.0); EOSINOPHIL % 0.1 % (0-5); MEAN CORPUSCULAR HGB 30.7 PG (27.0-31.0); MEAN CORPUSCULAR HGB CONC 33.2 G/DL (33.0-37.0); MEAN CORPUSCULAR VOLUME 92.6 FL (81.0-99.0); MEAN PLATELET VOLUME 8.8 FL (7.4-10.4); PLATELET COUNT 321 /CUMM (130-400); RBC DISTRIBUTION WIDTH 13.8 % (11.5-14.5); RED BLOOD CELL CT 4.43 /CUMM (4.20-5.40); WHITE BLOOD CELL COUNT 17.1 /CUMM (4.8-10.8)
[2017-10-28 10:03] LABS: GRANULOCYTE % 88.5 % (42.2-75.2)
--- NOTE | 2017-10-28 11:16 | PN- Pulmonary ---
Subjective HPI/Critical Care Issues: CT scan of the chest yesterday showed a right pleural effusion which appeared to be complex by numbers. Chest tube drainage revealed a right hemothorax. There does not appear to be complicating infection based on cell count differential. Etiology of the hemothorax may be related to prior rib fractures . Thoracic surgery is following hematocrit is stable Objective Current Medications: Current Medications Sig/Laura Start time Last Medication Dose Route Stop Time Status Admin Acetaminophen 650 MG .STK-MED ONE 10/27 2104 DC PO 10/27 2105 Acetaminophen 650 MG Q4P PRN 10/23 1830 AC 10/27 PO 210 Albuterol Sulfate 3 ML EVERY 4 HRS/AWAKE 10/24 0800 AC 10/28 INH 0906 Alprazolam 0.25 MG ONCE ONE 10/27 2200 DC 10/27 PO 10/27 2201 221 Aripiprazole 15 MG DAILY 10/24 1000 AC 10/28 PO 0910 Azithromycin 500 MG DAILY 10/24 1000 AC 10/28 Sodium Chloride 250 ML IV 0915 Ceftriaxone Sodium 1,000 MG DAILY 10/24 1000 AC 10/28 IV 0914 Cyclobenzaprine HCl 10 MG .STK-MED ONE 10/27 2104 DC PO 10/27 2105 Cyclobenzaprine HCl 10 MG DAILY PRN 10/24 0245 AC 10/27 PO 2106 Escitalopram Oxalate 20 MG DAILY 10/24 1000 AC 10/28 PO 0911 Ezetimibe 10 MG DAILY 10/24 1000 AC 10/28 PO 0914 Heparin Sodium 5,000 UNIT Q8 10/23 2200 DC 10/27 (Porcine) SC 0429 Insulin Aspart 0 TIDAC 10/24 0800 AC 10/28 SC 0909 Lamotrigine 150 MG BID 10/23 220 AC 10/28 PO 0910 Lidocaine 1 PAT DAILY 10/25 1000 AC 10/28 EXT 0912 Methylprednisolone 40 MG Q12 10/27 2200 AC 10/28 IV 0955 Morphine Sulfate 2 MG Q6-PRN PRN 10/28 1015 AC 10/28 IV 1012 Morphine Sulfate 1 MG Q6-PRN PRN 10/27 1745 DC 10/28 IV 0520 Nicotine 14 MG DAILY 10/28 1000 AC TOP Nicotine 7 MG DAILY 10/24 1333 DC 10/28 TOP 0912 Nystatin 5 ML 4 TIMES/DAY 10/27 1429 AC 10/28 PO 0913 Omeprazole 40 MG DAILY AC 10/24 0700 AC 10/28 PO 0520 Oxybutynin Chloride 5 MG DAILY 10/24 1000 AC 10/28 PO 0910 Oxycodone/ 1 TAB Q6P PRN 10/25 1215 AC 10/28 Acetaminophen PO 0353 Pravastatin Sodium 20 MG DAILY 10/24 1000 AC 10/28 PO 0913 Vital Signs & I&O Last 24 Hrs of Vitals and I&O: Vital Signs Date Time Temp Pulse Resp B/P B/P Pulse O2 O2 Flow FiO2 Mean Ox Delivery Rate 10/28 0909 Nasal 4.0L Cannula 10/28 0800 92 Nasal 4.0L Cannula 10/28 0645 97.6 92 20 150/80 90 Nasal 4.0L Cannula 10/28 0000 91 Nasal 4.0L Cannula 10/27 2226 97.7 93 16 132/68 91 Nasal Cannula 10/27 2035 Nasal 4.0L Cannula 10/27 1600 Nasal 3.0L Cannula 10/27 1431 98.2 92 20 122/70 96 Intake & Output 10/28 1600 10/28 0800 10/28 0000 Intake Total 420 Output Total 350 825 Balance 70 -825 Intake, IV 20 Intake, Oral 400 Output, Chest 825 Tube Drainage Output, Urine 350 And saturation 4 L 92% exam of the right chest shows somewhat better breath sounds Impression/Plan Impression/Plan Impression/Plan: 66-year-old woman with advanced COPD admitted with new community acquired pneumonia and hypoxic respiratory failure with associated right pleural effusion which is now proven to be a hemothorax Recommendations: Continue chest tube drainage. Thoracic surgery follow-up. Follow-up cytology and cultures.
--- NOTE | 2017-10-28 13:04 | PN- Thoracic Surgery ---
Subjective Subjective: Feels much better. Breathing better. is able to ambulate. Significant improvement since catheter was placed. Objective Vital Signs and I&Os Vital Signs Date Time Temp Pulse Resp B/P B/P Pulse O2 O2 Flow FiO2 Mean Ox Delivery Rate 10/28 0909 Nasal 4.0L Cannula 10/28 0800 92 Nasal 4.0L Cannula 10/28 0645 97.6 92 20 150/80 90 Nasal 4.0L Cannula 10/28 0000 91 Nasal 4.0L Cannula 10/27 2226 97.7 93 16 132/68 91 Nasal Cannula 10/27 2035 Nasal 4.0L Cannula 10/27 1600 Nasal 3.0L Cannula 10/27 1431 98.2 92 20 122/70 96 Intake & Output 10/28 1600 10/28 0800 10/28 0000 10/27 1600 10/27 0800 10/27 0000 Intake Total 420 875 360 900 Output Total 350 825 Balance 70 -825 875 360 900 Intake, IV 20 275 Intake, Oral 400 600 360 900 Output, Chest 825 Tube Drainage Output, Urine 350 Patient 200 lb Weight Physical Exam: Minimal fluid in drainage catheter. The breath sounds are clear bilaterally. Current Medications: Current Medications Sig/Laura Start time Last Medication Dose Route Stop Time Status Admin Acetaminophen 650 MG .STK-MED ONE 10/27 2104 DC PO 10/27 2105 Acetaminophen 650 MG Q4P PRN 10/23 1830 AC 10/27 PO 210 Albuterol Sulfate 3 ML EVERY 4 HRS/AWAKE 10/24 08 AC 10/28 INH 1204 Alprazolam 0.25 MG ONCE ONE 10/27 2200 DC 10/27 PO 10/27 2201 2210 Aripiprazole 15 MG DAILY 10/24 1000 AC 10/28 PO 0910 Azithromycin 500 MG DAILY 10/24 1000 AC 10/28 Sodium Chloride 250 ML IV 0915 Ceftriaxone Sodium 1,000 MG DAILY 10/24 1000 AC 10/28 IV 0914 Cyclobenzaprine HCl 10 MG .STK-MED ONE 10/27 2104 DC PO 10/27 2105 Cyclobenzaprine HCl 10 MG DAILY PRN 10/24 0245 AC 10/27 PO 2106 Escitalopram Oxalate 20 MG DAILY 10/24 1000 AC 10/28 PO 0911 Ezetimibe 10 MG DAILY 10/24 1000 AC 10/28 PO 0914 Insulin Aspart 0 TIDAC 10/24 0800 AC 10/28 SC 0909 Lamotrigine 150 MG BID 10/23 2200 AC 10/28 PO 0910 Lidocaine 1 PAT DAILY 10/25 1000 AC 10/28 EXT 0912 Methylprednisolone 40 MG Q12 10/27 2200 AC 10/28 IV 0955 Morphine Sulfate 2 MG Q6-PRN PRN 10/28 1015 AC 10/28 IV 1012 Morphine Sulfate 1 MG Q6-PRN PRN 10/27 1745 DC 10/28 IV 0520 Nicotine 14 MG DAILY 10/28 1000 AC TOP Nicotine 7 MG DAILY 10/24 1333 DC 10/28 TOP 0912 Nystatin 5 ML 4 TIMES/DAY 10/27 1429 AC 10/28 PO 0913 Omeprazole 40 MG DAILY AC 10/24 0700 AC 10/28 PO 0520 Oxybutynin Chloride 5 MG DAILY 10/24 1000 AC 10/28 PO 0910 Oxycodone/ 1 TAB Q6P PRN 10/25 1215 AC 10/28 Acetaminophen PO 0353 Pravastatin Sodium 20 MG DAILY 10/24 1000 AC 10/28 PO 0913 Results Last 48 Hours of Labs: Laboratory Tests 10/28 10/28 1000 0845 Chemistry Sodium (137 - 145 mmol/L) 143 Potassium (3.5 - 5.1 mmol/L) 4.6 Chloride (98 - 107 mmol/L) 101 Carbon Dioxide (22 - 30 mmol/L) 30 Anion Gap (5 - 16) 11 BUN (7 - 17 mg/dL) 32 H Creatinine (0.5 - 1.0 mg/dL) 0.8 Estimated GFR (>60 ml/min) > 60 BUN/Creatinine Ratio (7 - 25 %) 40.0 H Hematology CBC w Diff NO MAN DIFF REQ WBC (4.8 - 10.8 /CUMM) 17.1 H RBC (4.20 - 5.40 /CUMM) 4.43 Hgb (12.0 - 16.0 G/DL) 13.6 Hct (37 - 47 %) 41.0 MCV (81.0 - 99.0 FL) 92.6 MCH (27.0 - 31.0 PG) 30.7 RDW (11.5 - 14.5 %) 13.8 Plt Count (130 - 400 /CUMM) 321 MPV (7.4 - 10.4 FL) 8.8 Gran % (42.2 - 75.2 %) 88.5 H Lymphocytes % (20.5 - 51.1 %) 5.6 L Monocytes % (1.7 - 9.3 %) 5.7 Eosinophils % (0 - 5 %) 0.1 Basophils % (0.0 - 2.0 %) 0.1 Absolute Granulocytes (1.4 - 6.5 /CUMM) 15.2 H Absolute Lymphocytes (1.2 - 3.4 /CUMM) 1.0 L Absolute Monocytes (0.10 - 0.60 /CUMM) 1.0 H Absolute Eosinophils (0.0 - 0.7 /CUMM) 0 Absolute Basophils (0.0 - 0.2 /CUMM) 0 PUBS MCHC (33.0 - 37.0 G/DL) 33.2 10/27 10/27 10/27 2045 1709 1709 Chemistry Sodium (137 - 145 mmol/L) 144 Potassium (3.5 - 5.1 mmol/L) 4.7 Chloride (98 - 107 mmol/L) 103 Carbon Dioxide (22 - 30 mmol/L) 33 H Anion Gap (5 - 16) 7 BUN (7 - 17 mg/dL) 34 H Creatinine (0.5 - 1.0 mg/dL) 0.8 Estimated GFR (>60 ml/min) > 60 BUN/Creatinine Ratio (7 - 25 %) 42.5 H Lactate Dehydrogenase (313 - 618 U/L) 742 H Total Protein (6.3 - 8.2 g/dL) 6.4 Albumin (3.5 - 5.0 g/dL) 3.4 L Hematology CBC w Diff NO MAN DIFF REQ WBC (4.8 - 10.8 /CUMM) 16.3 H RBC (4.20 - 5.40 /CUMM) 4.28 Hgb (12.0 - 16.0 G/DL) 13.0 Hct (37 - 47 %) 39.8 MCV (81.0 - 99.0 FL) 93.1 MCH (27.0 - 31.0 PG) 30.4 RDW (11.5 - 14.5 %) 13.7 Plt Count (130 - 400 /CUMM) 303 MPV (7.4 - 10.4 FL) 8.9 Gran % (42.2 - 75.2 %) 81.9 H Lymphocytes % (20.5 - 51.1 %) 8.1 L Monocytes % (1.7 - 9.3 %) 9.8 H Eosinophils % (0 - 5 %) 0.1 Basophils % (0.0 - 2.0 %) 0.1 Absolute Granulocytes (1.4 - 6.5 /CUMM) 13.4 H Absolute Lymphocytes (1.2 - 3.4 /CUMM) 1.3 Absolute Monocytes (0.10 - 0.60 /CUMM) 1.6 H Absolute Eosinophils (0.0 - 0.7 /CUMM) 0 Absolute Basophils (0.0 - 0.2 /CUMM) 0 PUBS MCHC (33.0 - 37.0 G/DL) 32.7 L Other Body Source Fluid WBC (0 - 5 /CUMM) 7800 H Fld Mesothelial Cells (%) 39 Fld Total RBCs Counted (0 /CUMM) [id number] H Pleural pH (PH) 7.21 10/27 10/27 1709 1240 Coagulation PT (9.4 - 12.5 SEC) 10.7 INR (0.90 - 1.19) 1.02 APTT (25 - 37 SEC) 25 Hematology Lymphocytes (%) 21 % Normal PMNs (%) 37 Misc Hematology Test (%) 3 Miscellaneous Phlebotomy Draw Site RT.THORA Other Body Source Fluid Glucose (mg/dL) 100 Fluid Total Protein (g/dL) 4.8 Fluid Albumin (g/dL) 2.5 Fluid LDH (U/L) 3178 Fluid Amylase (U/L) 41 Assessment/Plan Assessment/Plan Hemothorax secondary to chest wall trauma. I suspect that the collection is drained. We will get a chest x-ray tomorrow and if there continues to be minimal drainage with improved chest x-ray the catheter can be removed. lytics are not appropriate in this situation given the pathophysiology process.
[2017-10-28 14:27] VITALS: BP 160/80
[2017-10-28 22:21] VITALS: BP 132/70
[2017-10-29 02:35] VITALS: BP 150/90
--- NOTE | 2017-10-29 06:50 | PN- Housestaff ---
Chrissy FREEDMAN,Avery 10/29/17 0650: Subjective Follow-up For: Hemothorax COPD exacerbation Community-acquired Pneumonia Subjective: Patient seen and examined at bedside. She is resting comfortably. She had no acute events overnight. She continues to feel improvement overall. She is complaining of R sided chest pain and anterior chest pain. She currently offers no other complaints denying shortness of breath, nausea, vomiting, fever, chills. Review of Systems Constitutional: Denies: chills, fever. Cardiovascular: Denies: chest pain, palpitations. Respiratory: Reports: cough. Denies: short of breath, sputum production. Gastrointestinal: Reports: no symptoms. Genitourinary: Reports: no symptoms. Musculoskeletal: Reports: no symptoms. Objective Last 24 Hrs of Vital Signs/I&O Vital Signs Date Time Temp Pulse Resp B/P B/P Pulse O2 O2 Flow FiO2 Mean Ox Delivery Rate 10/29 0235 97.8 103 20 150/90 91 Nasal 4.0L Cannula 10/29 0206 92 Nasal 4.0L Cannula 10/29 0000 92 Nasal 4.0L Cannula 10/28 2221 98.1 101 20 132/70 92 Nasal Cannula 10/28 1635 92 Nasal 4.0L Cannula 10/28 1600 96 Nasal 4.0L Cannula 10/28 1427 97.9 107 20 160/80 91 Nasal 4.0L Cannula 10/28 0909 Nasal 4.0L Cannula 10/28 0800 92 Nasal 4.0L Cannula Intake & Output 10/29 0800 10/29 0000 10/28 1600 Intake Total 360 840 340 Output Total 510 225 650 Balance -150 615 -310 Intake, Oral 360 840 340 Output, Chest 10 25 Tube Drainage Output, Urine 500 200 650 Physical Exam General Appearance: Alert, Oriented X3, Cooperative, No Acute Distress Skin Temp/Moisture Exam: Warm/Dry Cardiovascular: Regular Rate, Normal S1, Normal S2, No Murmurs Lungs: no appreciable wheezes, diminished breath sounds, chest tube in place, with no sign of leakage Abdomen: Normal Bowel Sounds, Soft, No Tenderness Neurological: Normal Speech, Sensation Intact Extremities: No Clubbing, No Cyanosis, No Edema Current Medications: Current Medications Sig/Laura Start time Last Medication Dose Route Stop Time Status Admin Acetaminophen 650 MG Q4P PRN 10/23 1830 AC 10/27 PO 2106 Albuterol Sulfate 3 ML EVERY 4 HRS/AWAKE 10/24 0800 AC 10/29 INH 0153 Alprazolam 0.25 MG ONCE ONE 10/28 2300 DC 10/28 PO 10/28 2301 2311 Aripiprazole 15 MG DAILY 10/24 1000 AC 10/28 PO 0910 Azithromycin 500 MG DAILY 10/24 1000 AC 10/28 Sodium Chloride 250 ML IV 0915 Ceftriaxone Sodium 1,000 MG DAILY 10/24 1000 AC 10/28 IV 0914 Cyclobenzaprine HCl 10 MG .STK-MED ONE 10/28 1734 DC PO 10/28 1735 Cyclobenzaprine HCl 10 MG DAILY PRN 10/24 0245 AC 10/28 PO 2328 Escitalopram Oxalate 20 MG DAILY 10/24 1000 AC 10/28 PO 0911 Ezetimibe 10 MG DAILY 10/24 1000 AC 10/28 PO 0914 Insulin Aspart 0 TIDAC 10/24 0800 AC 10/28 SC 1735 Lamotrigine 150 MG BID 10/23 2200 AC 10/28 PO 2047 Lidocaine 1 PAT DAILY 10/25 1000 AC 10/28 EXT 0912 Methylprednisolone 40 MG Q12 10/27 2200 AC 10/28 IV 2050 Morphine Sulfate 1 MG ONCE ONE 10/29 0130 DC 10/29 IV 10/29 0131 0157 Morphine Sulfate 2 MG Q6-PRN PRN 10/28 1015 AC 10/28 IV 2311 Morphine Sulfate 1 MG Q6-PRN PRN 10/27 1745 DC 10/28 IV 0520 Nicotine 14 MG DAILY 10/28 1000 AC 10/28 TOP 1200 Nicotine 7 MG DAILY 10/24 1333 DC 10/28 TOP 0912 Nystatin 5 ML 4 TIMES/DAY 10/27 1429 AC 10/28 PO 2049 Omeprazole 40 MG DAILY AC 10/24 0700 AC 10/29 PO 0626 Oxybutynin Chloride 5 MG DAILY 10/24 1000 AC 10/28 PO 0910 Oxycodone/ 1 TAB Q6P PRN 10/25 1215 AC 10/29 Acetaminophen PO 0408 Polyethylene Glycol 17 GM DAILY 10/28 1428 AC 10/28 PO 2050 Pravastatin Sodium 20 MG DAILY 10/24 1000 AC 10/28 PO 0913 Senna/Docusate Sodium 2 TAB DAILY PRN 10/28 1430 AC PO Last 24 Hrs of Lab/Zeus Results Last 24 Hrs of Labs/Mics: Laboratory Tests 10/29/17 0737: Anion Gap 6, Estimated GFR > 60, BUN/Creatinine Ratio 28.9 H, CBC w Diff MAN DIFF ORDERED, RBC 4.22, MCV 91.9, MCH 30.7, RDW 13.3, MPV 8.3, Gran % 88.7 H, Lymphocytes % 6.1 L, Monocytes % 4.9, Eosinophils % 0.2, Basophils % 0.1, Absolute Granulocytes 14.7 H, Segmented Neutrophils 82 H, Band Neutrophils 3, Absolute Lymphocytes 1.0 L, Lymphocytes 8 L, Monocytes 5, Absolute Monocytes 0.8 H, Absolute Eosinophils 0, Absolute Basophils 0, Metamyelocytes 2 H, Platelet Estimate VERIFIED BY SMEAR, Normocytic RBCs VERIFIED, Normochromic RBCs VERIFIED, PUBS MCHC 33.4 Orders Radiology Findings: CXR 1. Right pigtail chest tube at the right lung base. Probable small residual right pleural effusion. 2. Increasing left basilar airspace disease which likely represents atelectasis. Clinical correlation for developing pneumonia recommended. Assessment/Plan Assessment: Patient is a 65-year-old female with a PMH significant for DM, O2 dependent COPD (3 L baseline), HLD, anxiety, bipolar disorder who was brought into the ED by ambulance complaining of shortness of breath, and productive cough. #Hemothorax Patient went for noncontrast CT today for reevaluation of right pleural effusion. Based on the results pulmonary recommended chest tube placement for suspected empyema. Chest tube placed which drained blood. CT surgery was consulted who recommended chest tube placed to Pleur-evac suction. Repeat chest x-ray showed shrinkage of the right-sided pleural effusion and no pneumothorax. minimal output from chest tube today. CXR shows shrinkage of the R sided pleural effusion. -No acute drop in H/H -Pleural fluid studies showed large number of RBCs consistent with hemothorax, likely secondary to rib fractures -chest tube to be removed #Acute hypoxic respiratory failure secondary to COPD exacerbation Patient reported desaturation to 84% at home prior to EMS arrival. She has a history of COPD and has had a productive cough for the past month which she failed outpatient steroid taper. Rapid flu test negative. Patient worsened clincally today. -TRC/Nebs - will conver to oral prednisone tomorrow -Continue home albuterol #Community acquired pneumonia patient is afebrile on abx and steroids currently, leukocytosis may represent emargination secondary to steroid use or acute infectious process with pneumonia. - follow up Blood cultures(currently negative for growth), sputum culture - will will continue with IV Azithromycin (day 6) and Rocephin (day 6) - pulmonary evaluation and recommendations appreciated #nicotine dependence -Smoking cessation counseling given - nicotine patch #DM -Hold home metformin, continue with novolog sliding scale - accuchecks TIDAC/HS #Chronic medical problems -continue with home medications including pravastatin, oxybutynin, Lexapro, Zetia, abilify, Lamictal #DVT prophylaxis -ALPS and SC heparin #Code status -Full code Problem List: 1. Hemothorax 2. COPD with exacerbation Pain Ratin Pain Location: Chest Pain Goal: Pain 4 or less Pain Plan: pain pathway Tomorrow's Labs & Rationales: jessica Crews MD,Marley 10/29/17 1121: Attending MD Review Statement Attending Statement Attending MD Statement: examined this patient, discuss w/resident/PA/COMPUTER PROCESSING SCHEDULER, agreed w/resident/PA/COMPUTER PROCESSING SCHEDULER, reviewed EMR data (avail), discussed with nursing, discussed with case mgmt, amended to note Attending Assessment/Plan: Patient seen and examined. Lying in bed. Complains of chest pain more predominant on the right chest wall anteriorly. Complains of on the right sided chest wall as well. Her arterial chest wall she reports is new this morning. She reports less shortness of breath. Reports mild cough. She remains afebrile and hemodynamically stable. She is saturating 93% on 2 L of oxygen. On examination she is not in any respiratory distress. She has diminished air entry in the right lung base. She has a chest tube connected to the right lung base. She has no audible wheeze. Abdomen soft and nontender. No peripheral edema. Chest has 35 mL drainage from the chest tube so far today. She has 0 drainage yesterday. Chest x-ray today shows probable small residual right pleural effusion and increasing left basilar air space disease which likely represents atelectasis. Recommendations: -Follow-up with cardiothoracic surgery service regarding management of a chest tube. -Continue current pain regimen. -Obtain EKG. Pain appears musculoskeletal. If any abnormal EKG is changes noted we'll obtain cardiac enzymes. It is noted that she had similar pain during this admission and cardiac enzymes were all negative. -She has completed 6 days of IV antibiotic therapy today. Follow-up with the pulmonology service regarding transitioning her to oral antibiotic therapy. -Currently has no evidence of bronchospasm. Would recommend starting patient on prednisone 40 mg orally tomorrow.
[2017-10-29 07:08] VITALS: BP 120/66
[2017-10-29 08:10] LABS: ABSOLUTE BASOPHIL COUNT 0 /CUMM (0.0-0.2); ABSOLUTE EOSINOPHIL COUNT 0 /CUMM (0.0-0.7); ABSOLUTE GRANULOCYTE CT 14.7 /CUMM (1.4-6.5); ABSOLUTE MONOCYTE COUNT 0.8 /CUMM (0.10-0.60); BASOPHIL % 0.1 % (0.0-2.0); EOSINOPHIL % 0.2 % (0-5); GRANULOCYTE % 88.7 % (42.2-75.2); HEMATOCRIT 38.8 % (37-47); MEAN CORPUSCULAR HGB 30.7 PG (27.0-31.0); MEAN CORPUSCULAR HGB CONC 33.4 G/DL (33.0-37.0); MEAN CORPUSCULAR VOLUME 91.9 FL (81.0-99.0); MEAN PLATELET VOLUME 8.3 FL (7.4-10.4); PLATELET COUNT 325 /CUMM (130-400); RBC DISTRIBUTION WIDTH 13.3 % (11.5-14.5); RED BLOOD CELL CT 4.22 /CUMM (4.20-5.40); WHITE BLOOD CELL COUNT 16.5 /CUMM (4.8-10.8)
--- NOTE | 2017-10-29 10:00 | RADIOLOGY REPORT ---
EXAMINATION: XR PORTABLE CHEST CLINICAL INFORMATION: 67-year-old female status post chest tube placement for pneumothorax. COMPARISON: None TECHNIQUE: Portable frontal view of the chest was obtained. FINDINGS: Low lung volumes. Stable cardiomegaly mediastinal silhouette. Pigtail chest tube again noted at the right lung base. Probable small residual right-sided pleural effusion. Increasing left basilar airspace disease. No pneumothorax. No acute osseous ovale. IMPRESSION: 1. Right pigtail chest tube at the right lung base. Probable small residual right pleural effusion. 2. Increasing left basilar airspace disease which likely represents atelectasis. Clinical correlation for developing pneumonia recommended.
--- NOTE | 2017-10-29 10:10 | ULTRASOUND REPORT ---
CLINICAL HISTORY: This patient is a 14-year-old woman with high density right pleural effusion, who presents to interventional radiology for diagnostic thoracentesis and possible chest tube placement. PROCEDURE: 1. Limited ultrasound of the right chest. 2. Ultrasound-guided placement of a right chest tube. PHYSICIANS: Dr. Montiel (attending). MEDICATIONS: 20 mL of 1% lidocaine SQ. COMPLICATIONS: None. ESTIMATED BLOOD LOSS: <5 mL. SPECIMEN: Nonclotting sanguinous fluid. IMPLANT: 12 F locking pigtail catheter. PROCEDURE NOTE: Informed consent was obtained from the patient prior to the procedure. During this process, the procedure and potential alternatives were explained along with the intended outcome and benefits. The risks of the procedure including the possibility of an unsuccessful procedure, as well as the risk of not doing the procedure were discussed. The patient was given the opportunity to ask questions regarding the procedure and appeared competent to make decisions. A signed consent form documenting this discussion was placed in the medial record. A time out procedure was performed. The patient was positioned sitting upright on her stretcher in the ultrasound room. A limited US of the right chest was performed to localize the moderate-sized pleural effusion. The right chest was prepped and draped in usual sterile fashion. The skin and subcutaneous tissues were anesthetized with lidocaine. Under US-guidance, a 5F One-Step needle was advanced into the right pleural space. Dark blood was aspirated. A small amount was squirted out onto some gauze. It did not clot. This is consistent with old hemothorax. At this point several attempts were made to reach the primary team including the architecture intern, resident, and Dr. Amaro to confirm that they indeed wanted me to convert the thoracentesis into a chest tube in the setting of hemothorax as the original order was for a thoracentesis/chest tube. Eventually we reached the covering attending physician Dr. Mane confirmed chest tube placement. An 0.035 in Amplatz super stiff wire was advanced through the needle and coiled in the pleural space. The needle was removed, the tract was dilated with 8 and 10 Latvian fascial dilators, and then a 12 Latvian locking all-purpose catheter was advanced over the wire. This hospital did not have the nonlocking conversion of the pigtail. The wire was removed from the catheter and the tip was coiled and locked within the pleural effusion. The drain was sutured to skin with 0 silk suture and secured with a Stat-Nadine device. A sterile dressing was applied. Orders were written into the chart. The patient tolerated the procedure well. FINDINGS: 1. Limited ultrasound of the right chest demonstrated a moderate pleural effusion. 2. Successful ultrasound-guided percutaneous drainage catheter placement. IMPRESSION: Successful ultrasound-guided percutaneous right pleural chest tube for hemothorax. A sample of fluid was sent for the requested labs. PLAN: 1. The patient was stable after the procedure and was transferred to the interventional recovery area. The patient will be transferred back to her room after obtaining a chest x-ray. 2. The tube should be hooked to low wall suction -20 cm H2O. 3. The tube should be flushed three times daily with 20 mL normal saline. 4. Ultimate plan per pulmonology.
[2017-10-29 14:29] VITALS: BP 148/80
--- NOTE | 2017-10-29 15:46 | Event Note ---
Event Note Event Note: right pleur-x cath removed at bedside patient tolerated procedure sterile occlusive drsg applied of any adverse changes in respiratory status order portable cxr dr traore aware
--- NOTE | 2017-10-29 15:51 | PN- Thoracic Surgery ---
Subjective Subjective: Patient feels good. His breathing well. Still has pain related to fractured ribs but not to the catheter. Objective Vital Signs and I&Os Vital Signs Date Time Temp Pulse Resp B/P B/P Pulse O2 O2 Flow FiO2 Mean Ox Delivery Rate 10/29 1429 98.7 100 20 148/80 90 Nasal 3.0L Cannula 10/29 0832 93 Nasal 2.0L Cannula 10/29 0800 Nasal 3.5L Cannula 10/29 0708 97.4 97 20 120/66 91 Nasal 4.0L Cannula 10/29 0235 97.8 103 20 150/90 91 Nasal 4.0L Cannula 10/29 0206 92 Nasal 4.0L Cannula 10/29 0000 92 Nasal 4.0L Cannula 10/28 2221 98.1 101 20 132/70 92 Nasal Cannula 10/28 1635 92 Nasal 4.0L Cannula 10/28 1600 96 Nasal 4.0L Cannula Intake & Output 10/29 1600 10/29 0800 10/29 0000 10/28 1600 10/28 0800 10/28 0000 Intake Total 360 840 340 420 Output Total 400 510 225 650 350 825 Balance -400 -150 615 -310 70 -825 Intake, IV 20 Intake, Oral 360 840 340 400 Output, Chest 10 25 825 Tube Drainage Output, Urine 400 500 200 650 350 Physical Exam: Catheter in place. Breath sounds are fairly clear. Minimal drainage in the Pleur-evac. Current Medications: Current Medications Sig/Laura Start time Last Medication Dose Route Stop Time Status Admin Acetaminophen 650 MG Q4P PRN 10/23 1830 AC 10/27 PO 2106 Albuterol Sulfate 3 ML EVERY 4 HRS/AWAKE 10/24 0800 AC 10/29 INH 1226 Alprazolam 0.25 MG ONCE ONE 10/28 2300 DC 10/28 PO 10/28 2301 2311 Aripiprazole 15 MG DAILY 10/24 1000 AC 10/29 PO 0927 Azithromycin 500 MG DAILY 10/24 1000 DC 10/29 Sodium Chloride 250 ML IV 0758 Ceftriaxone Sodium 1,000 MG DAILY 10/24 1000 DC 10/29 IV 0757 Cyclobenzaprine HCl 10 MG .STK-MED ONE 10/28 1734 DC PO 10/28 1735 Cyclobenzaprine HCl 10 MG DAILY PRN 10/24 0245 AC 10/29 PO 1337 Escitalopram Oxalate 20 MG DAILY 10/24 1000 AC 10/29 PO 0927 Ezetimibe 10 MG DAILY 10/24 1000 AC 10/29 PO 0927 Insulin Aspart 0 TIDAC 10/24 0800 AC 10/29 SC 0803 Lamotrigine 150 MG BID 10/23 2200 AC 10/29 PO 0928 Lidocaine 1 PAT DAILY 10/25 1000 AC 10/29 EXT 0803 Methylprednisolone 40 MG Q12 10/27 2200 AC 10/29 IV 0931 Morphine Sulfate 1 MG ONCE ONE 10/29 0130 DC 10/29 IV 10/29 0131 0157 Morphine Sulfate 2 MG Q6-PRN PRN 10/28 1015 AC 10/28 IV 2311 Nicotine 14 MG DAILY 10/28 1000 AC 10/29 TOP 0803 Nystatin 5 ML 4 TIMES/DAY 10/27 1429 AC 10/29 PO 1336 Omeprazole 40 MG DAILY AC 10/24 0700 AC 10/29 PO 0626 Oxybutynin Chloride 5 MG DAILY 10/24 1000 AC 10/29 PO 0928 Oxycodone/ 1 TAB Q6P PRN 10/25 1215 AC 10/29 Acetaminophen PO 1337 Polyethylene Glycol 17 GM DAILY 10/28 1428 AC 10/29 PO 0758 Pravastatin Sodium 20 MG DAILY 10/24 1000 AC 10/29 PO 0927 Senna/Docusate Sodium 2 TAB DAILY PRN 10/28 1430 AC PO Results Last 48 Hours of Labs: Laboratory Tests 10/29 10/28 0737 1000 Chemistry Sodium (137 - 145 mmol/L) 137 143 Potassium (3.5 - 5.1 mmol/L) 4.4 4.6 Chloride (98 - 107 mmol/L) 97 L 101 Carbon Dioxide (22 - 30 mmol/L) 34 H 30 Anion Gap (5 - 16) 6 11 BUN (7 - 17 mg/dL) 26 H 32 H Creatinine (0.5 - 1.0 mg/dL) 0.9 0.8 Estimated GFR (>60 ml/min) > 60 > 60 BUN/Creatinine Ratio (7 - 25 %) 28.9 H 40.0 H Hematology CBC w Diff MAN DIFF ORDERED WBC (4.8 - 10.8 /CUMM) 16.5 H RBC (4.20 - 5.40 /CUMM) 4.22 Hgb (12.0 - 16.0 G/DL) 12.9 Hct (37 - 47 %) 38.8 MCV (81.0 - 99.0 FL) 91.9 MCH (27.0 - 31.0 PG) 30.7 RDW (11.5 - 14.5 %) 13.3 Plt Count (130 - 400 /CUMM) 325 MPV (7.4 - 10.4 FL) 8.3 Gran % (42.2 - 75.2 %) 88.7 H Lymphocytes % (20.5 - 51.1 %) 6.1 L Monocytes % (1.7 - 9.3 %) 4.9 Eosinophils % (0 - 5 %) 0.2 Basophils % (0.0 - 2.0 %) 0.1 Absolute Granulocytes (1.4 - 6.5 /CUMM) 14.7 H Segmented Neutrophils (42.2 - 75.2 %) 82 H Band Neutrophils (0.0 - 5.0 %) 3 Absolute Lymphocytes (1.2 - 3.4 /CUMM) 1.0 L Lymphocytes (20.5 - 51.1 %) 8 L Monocytes (1.7 - 9.3 %) 5 Absolute Monocytes (0.10 - 0.60 /CUMM) 0.8 H Absolute Eosinophils (0.0 - 0.7 /CUMM) 0 Absolute Basophils (0.0 - 0.2 /CUMM) 0 Metamyelocytes (0.0 - 1.0 %) 2 H Platelet Estimate (ADEQUATE) VERIFIED BY SMEAR Normocytic RBCs VERIFIED Normochromic RBCs VERIFIED PUBS MCHC (33.0 - 37.0 G/DL) 33.4 10/28 10/27 0845 2045 Chemistry Sodium (137 - 145 mmol/L) 144 Potassium (3.5 - 5.1 mmol/L) 4.7 Chloride (98 - 107 mmol/L) 103 Carbon Dioxide (22 - 30 mmol/L) 33 H Anion Gap (5 - 16) 7 BUN (7 - 17 mg/dL) 34 H Creatinine (0.5 - 1.0 mg/dL) 0.8 Estimated GFR (>60 ml/min) > 60 BUN/Creatinine Ratio (7 - 25 %) 42.5 H Lactate Dehydrogenase (313 - 618 U/L) 742 H Total Protein (6.3 - 8.2 g/dL) 6.4 Albumin (3.5 - 5.0 g/dL) 3.4 L Hematology CBC w Diff NO MAN DIFF REQ NO MAN DIFF REQ WBC (4.8 - 10.8 /CUMM) 17.1 H 16.3 H RBC (4.20 - 5.40 /CUMM) 4.43 4.28 Hgb (12.0 - 16.0 G/DL) 13.6 13.0 Hct (37 - 47 %) 41.0 39.8 MCV (81.0 - 99.0 FL) 92.6 93.1 MCH (27.0 - 31.0 PG) 30.7 30.4 RDW (11.5 - 14.5 %) 13.8 13.7 Plt Count (130 - 400 /CUMM) 321 303 MPV (7.4 - 10.4 FL) 8.8 8.9 Gran % (42.2 - 75.2 %) 88.5 H 81.9 H Lymphocytes % (20.5 - 51.1 %) 5.6 L 8.1 L Monocytes % (1.7 - 9.3 %) 5.7 9.8 H Eosinophils % (0 - 5 %) 0.1 0.1 Basophils % (0.0 - 2.0 %) 0.1 0.1 Absolute Granulocytes (1.4 - 6.5 /CUMM) 15.2 H 13.4 H Absolute Lymphocytes (1.2 - 3.4 /CUMM) 1.0 L 1.3 Absolute Monocytes (0.10 - 0.60 /CUMM) 1.0 H 1.6 H Absolute Eosinophils (0.0 - 0.7 /CUMM) 0 0 Absolute Basophils (0.0 - 0.2 /CUMM) 0 0 PUBS MCHC (33.0 - 37.0 G/DL) 33.2 32.7 L 24 10/27 10/27 1709 1709 1709 Hematology Lymphocytes (%) 21 % Normal PMNs (%) 37 Misc Hematology Test (%) 3 Miscellaneous Phlebotomy Draw Site RT.THORA Other Body Source Fluid WBC (0 - 5 /CUMM) 7800 H Fld Mesothelial Cells (%) 39 Fld Total RBCs Counted (0 /CUMM) [id number] H Fluid Glucose (mg/dL) 100 Fluid Total Protein (g/dL) 4.8 Fluid Albumin (g/dL) 2.5 Fluid LDH (U/L) 3178 Fluid Amylase (U/L) 41 Pleural pH (PH) 7.21 Recent Imaging Studies: Chest x-ray shows significant clearing at the right hemidiaphragm. There is possibly a little residual fluid posteriorly. Assessment/Plan Assessment/Plan Good response to drainage of hemothorax with catheter. Given the nature of the fluid and the appearance of the x-ray think the process is completed. Spoke with Dr. Riddle and we will get the catheter out today.
[2017-10-29 22:23] VITALS: BP 140/78
[2017-10-30 06:36] VITALS: BP 140/74
--- NOTE | 2017-10-30 07:42 | PN- Housestaff ---
Chrissy FREEDMAN,Avery 10/30/17 0742: Subjective Follow-up For: Hemothorax Community acquired pneumonia Subjective: seen and examined at bedside. She was resting comfortably. She had no acute events overnight. She states that her chest pain has remained unchanged at the site of her rib fractures, and that her shortness of breath and cough continues to improve. She had no other complaints and denies any nausea, vomiting, fever, chills, lightheadedness, dizziness. Review of Systems Constitutional: Denies: chills, fever. Cardiovascular: Reports: chest pain. Denies: palpitations. Respiratory: Reports: cough, short of breath. Denies: sputum production. Gastrointestinal: Reports: no symptoms. Genitourinary: Reports: no symptoms. Musculoskeletal: Reports: no symptoms. Objective Last 24 Hrs of Vital Signs/I&O Vital Signs Date Time Temp Pulse Resp B/P B/P Pulse O2 O2 Flow FiO2 Mean Ox Delivery Rate 10/30 0636 98.3 105 20 140/74 92 Nasal 4.0L Cannula 10/30 0000 Nasal 4.0L Cannula 10/29 2223 97.9 104 20 140/78 93 10/29 1645 92 Nasal 4.0L Cannula 10/29 1429 98.7 100 20 148/80 90 Nasal 3.0L Cannula 10/29 0832 93 Nasal 2.0L Cannula 10/29 0800 Nasal 3.5L Cannula Intake & Output 10/30 0800 10/30 0000 10/29 1600 Intake Total 160 Output Total 800 400 Balance -640 -400 Intake, IV 20 Intake, Oral 140 Output, Urine 800 400 Physical Exam General Appearance: Alert, Oriented X3, Cooperative, No Acute Distress Skin Temp/Moisture Exam: Warm/Dry Cardiovascular: Regular Rate, Normal S1, Normal S2, No Murmurs Lungs: crackles at the R lung base, scant wheezes Abdomen: Normal Bowel Sounds, Soft, No Tenderness Current Medications: Current Medications Sig/Laura Start time Last Medication Dose Route Stop Time Status Admin Acetaminophen 650 MG Q4P PRN 10/23 1830 AC 10/27 PO 2106 Albuterol Sulfate 3 ML EVERY 4 HRS/AWAKE 10/24 0800 AC 10/29 INH 2115 Alprazolam 0.25 MG ONCE ONE 10/29 223 DC 10/30 PO 10/29 223 0001 Aripiprazole 15 MG DAILY 10/24 1000 AC 10/29 PO 0927 Azithromycin 500 MG DAILY 10/24 1000 DC 10/29 Sodium Chloride 250 ML IV 0758 Ceftriaxone Sodium 1,000 MG DAILY 10/24 1000 DC 10/29 IV 0757 Cyclobenzaprine HCl 10 MG DAILY PRN 10/24 0245 AC 10/29 PO 1337 Escitalopram Oxalate 20 MG DAILY 10/24 1000 AC 10/29 PO 0927 Ezetimibe 10 MG DAILY 10/24 1000 AC 10/29 PO 0927 Insulin Aspart 0 TIDAC 10/24 0800 AC 10/29 SC 1723 Lamotrigine 150 MG BID 10/23 2200 AC 10/29 PO 2145 Lidocaine 1 PAT DAILY 10/25 1000 AC 10/29 EXT 0803 Methylprednisolone 40 MG Q12 10/27 2200 AC 10/29 IV 2141 Morphine Sulfate 2 MG Q6-PRN PRN 10/28 1015 AC 10/28 IV 2311 Nicotine 14 MG DAILY 10/28 1000 AC 10/29 TOP 0803 Nystatin 5 ML 4 TIMES/DAY 10/27 1429 AC 10/29 PO 2141 Omeprazole 40 MG DAILY AC 10/24 0700 AC 10/30 PO 0644 Oxybutynin Chloride 5 MG DAILY 10/24 1000 AC 10/29 PO 0928 Oxycodone/ 1 TAB Q6P PRN 10/25 1215 AC 10/30 Acetaminophen PO 0437 Polyethylene Glycol 17 GM DAILY 10/28 1428 AC 10/29 PO 0758 Pravastatin Sodium 20 MG DAILY 10/24 1000 AC 10/29 PO 0927 Senna/Docusate Sodium 2 TAB DAILY PRN 10/28 1430 AC PO Last 24 Hrs of Lab/Zeus Results Last 24 Hrs of Labs/Mics: Laboratory Tests 10/30/17 0814: Anion Gap 10, Estimated GFR > 60, BUN/Creatinine Ratio 38.8 H, CBC w Diff MAN DIFF ORDERED, RBC 4.51, MCV 92.4, MCH 30.7, RDW 13.3, MPV 8.8, Gran % 88.1 H, Lymphocytes % 6.0 L, Monocytes % 5.7, Eosinophils % 0.1, Basophils % 0.1, Absolute Granulocytes 16.4 H, Segmented Neutrophils 75, Band Neutrophils 5, Absolute Lymphocytes 1.1 L, Lymphocytes 9 L, Monocytes 5, Absolute Monocytes 1.1 H, Absolute Eosinophils 0, Absolute Basophils 0, Metamyelocytes 4 H, Myelocytes 2 H, Platelet Estimate ADEQUATE, Normocytic RBCs VERIFIED, Normochromic RBCs VERIFIED, PUBS MCHC 33.2 Assessment/Plan Assessment: Patient is a 65-year-old female with a PMH significant for DM, O2 dependent COPD (3 L baseline), HLD, anxiety, bipolar disorder who was brought into the ED by ambulance complaining of shortness of breath, and productive cough. #Hemothorax Chest tube was removed yesterday. -Patient's H/H has remained stable. -Pleural fluid studies showed large number of RBCs consistent with hemothorax, likely secondary to rib fractures, currently no growth on culture, will follow up cytology #Acute hypoxic respiratory failure secondary to COPD exacerbation Patient reported desaturation to 84% at home prior to EMS arrival. She has a history of COPD and has had a productive cough for the past month which she failed outpatient steroid taper. Rapid flu test negative. - if stable overnight will DC in AM -TRC/Nebs - will convert to oral prednisone tomorrow and DC on a taper -Continue home albuterol #Community acquired pneumonia patient is afebrile on abx and steroids currently, leukocytosis may represent emargination secondary to steroid use or acute infectious process with pneumonia. - follow up Blood cultures(currently negative for growth), sputum culture - Start oral Augmentin today - pulmonary evaluation and recommendations appreciated #nicotine dependence -Smoking cessation counseling given - nicotine patch #DM -Hold home metformin, continue with novolog sliding scale - accuchecks TIDAC/HS #Chronic medical problems -continue with home medications including pravastatin, oxybutynin, Lexapro, Zetia, abilify, Lamictal #DVT prophylaxis -ALPS and SC heparin #Code status -Full code Problem List: 1. Hemothorax 2. COPD with exacerbation 3. Rib pain on right side 4. Pneumonia Pain Ratin Pain Location: R lateral ribs Pain Goal: Pain 4 or less Pain Plan: pain pathway Tomorrow's Labs & Rationales: Marley Cedillo MD 10/30/17 1357: Attending MD Review Statement Attending Statement Attending MD Statement: examined this patient, discuss w/resident/PA/FACS TEACHER, agreed w/resident/PA/FACS TEACHER, reviewed EMR data (avail), discussed with nursing, discussed with case mgmt, amended to note Attending Assessment/Plan: Patient seen and examined. She feels much better today. She is ambulating freely around the room. She reports that her anterior chest wall pain has resolved. EKG yesterday showed no ischemic changes. She is complaining of right-sided chest pain, she reports that the character has changed since removal of her chest tube yesterday. Pain is currently controlled on her current regimen. She did not require intravenous pain medications yesterday. On examination she has diminished breath sounds in the right lung base. She has minimal wheezing. Recommendations: -Transition to Augmentin and complete 10 days of antibiotic therapy for pneumonia.( Patient has tolerated Augmentin in the past. ) -Begin on oral prednisone tomorrow and taper off. -If she remains clinically stable tomorrow she may be discharged home to follow- up with the pulmonology service as an outpatient. -She will require a chest x-ray next week ensure stability of her pleural effusion.
[2017-10-30 09:22] LABS: ABSOLUTE BASOPHIL COUNT 0 /CUMM (0.0-0.2); ABSOLUTE EOSINOPHIL COUNT 0 /CUMM (0.0-0.7); ABSOLUTE GRANULOCYTE CT 16.4 /CUMM (1.4-6.5); ABSOLUTE LYMPH COUNT 1.1 /CUMM (1.2-3.4); ABSOLUTE MONOCYTE COUNT 1.1 /CUMM (0.10-0.60); BASOPHIL % 0.1 % (0.0-2.0); EOSINOPHIL % 0.1 % (0-5); GRANULOCYTE % 88.1 % (42.2-75.2); HEMATOCRIT 41.7 % (37-47); MEAN CORPUSCULAR HGB 30.7 PG (27.0-31.0); MEAN CORPUSCULAR HGB CONC 33.2 G/DL (33.0-37.0); MEAN CORPUSCULAR VOLUME 92.4 FL (81.0-99.0); MEAN PLATELET VOLUME 8.8 FL (7.4-10.4); PLATELET COUNT 364 /CUMM (130-400); RBC DISTRIBUTION WIDTH 13.3 % (11.5-14.5); RED BLOOD CELL CT 4.51 /CUMM (4.20-5.40); WHITE BLOOD CELL COUNT 18.6 /CUMM (4.8-10.8)
--- NOTE | 2017-10-30 12:06 | Cons- Thoracic Surgery ---
General Information and HPI Consulting Request Date of Consult: 10/27/17 Requested By: Marley Crews MD Reason for Consult: Evaluation and management of traumatic hemothorax Source of Information: patient, old records, PCP Exam Limitations: no limitations History of Present Illness: The patient is a 67-year-old woman who is followed as an outpatient by Dr. Riddle for her significant COPD. She is oxygen dependent at home. She has had multiple visits to [facility] with complaints of chest pain and difficulty breathing. Recent evaluation at shown evidence of 2 posterior rib fractures. On this admission with her complaints of pleuritic pain and dyspnea she was found to have a fairly significant right pleural effusion. Because of low-grade fevers and a leukocytosis concerns were for this being possibly infected. She underwent an interventional radiology procedure and the drainage has shown a hemothorax. A catheter has been left behind and thoracic surgical management opinion is asked. Allergies/Medications Allergies: Coded Allergies: Penicillins (RASH 10/10/17) azithromycin (From ZITHROMAX Z-ERNESTINA) (RASH 10/10/17) ciprofloxacin (From CIPRO HC) (FACIAL SWELLING, HIVES 10/10/17) clarithromycin (From BIAXIN) (RASH 10/10/17) hydrocortisone (From CIPRO HC) (FACIAL SWELLING 01/21/16) levofloxacin (From LEVAQUIN) (RASH 10/10/17) meperidine (From DEMEROL) (UNKNOWN PER PT 10/10/17) rofecoxib (From VIOXX) (RASH 10/10/17) Home Med List: Albuterol Sulfate 2.5 MG/3 ML (0.083 %) VIAL.NEB 1 Vial INH/NEHAL Q4P PRN RESPIRATORY Aripiprazole (Abilify) 15 MG TABLET 1 TAB PO DAILY MENTAL HEALTH (Reported) Cyclobenzaprine HCl 10 MG TABLET 1 TAB PO DAILY PRN pain Doxycycline Hyclate 100 MG TABLET 1 TAB PO BID PNA Escitalopram Oxalate (Lexapro) 20 MG TABLET 1 TAB PO DAILY MENTAL HEALTH ( Reported) Ezetimibe (Zetia) 10 MG TABLET 1 TAB PO DAILY MENTAL HEALTH (Reported) Hydrocodone/Acetaminophen (Vicodin 5-300 MG Tablet) 5 MG-300 MG TABLET 1 TAB PO BID pain Ibuprofen 800 MG TABLET 1 TAB PO PRN PAIN/INFLAMMATION (Reported) Lamotrigine 150 MG TABLET 1 TAB PO BID BIPOLAR (Reported) Linaclotide (Linzess) 145 MCG CAPSULE 0.5 MG PO DAILY PRN CONSTIPATION ( Reported) Meloxicam 7.5 MG TABLET 1 TAB PO DAILY PAIN CONTROL (Reported) Metformin HCl 1,000 MG TABLET 1 TAB PO DAILY DM (Reported) Metoclopramide HCl 5 MG TABLET 1 TAB PO PRN GI (Reported) Omeprazole 40 MG CAPSULE.DR 1 CAP PO DAILY ACID REFLUX (Reported) Oxycodone HCl/Acetaminophen (Percocet 5-325 MG Tablet) 5 MG-325 MG TABLET 1 TAB PO 4 TIMES/DAY PRN pain Pravastatin Sodium 20 MG TABLET 1 TAB PO DAILY CHOLESTEROL (Reported) Prednisone 20 MG TABLET 1 TAB PO BID copd Solifenacin Succinate (Vesicare) 5 MG TABLET 1 TAB PO DAILY INCONTINENCE ( Reported) Suvorexant (Belsomra) 20 MG TABLET 1 TAB PO QPM SLEEP (Reported) Tiotropium Br/Olodaterol HCl (Stiolto Respimat Inhal [place]) 2.5 MCG-2.5 MCG/ ACTUATION MIST.INHAL 1 PUFF INH BID EMPHYSEMA (Reported) Current Medications: Current Medications Sig/Laura Start time Last Medication Dose Route Stop Time Status Admin Acetaminophen 650 MG Q4P PRN 10/23 1830 AC 10/27 PO 2106 Albuterol Sulfate 3 ML EVERY 4 HRS/AWAKE 10/24 0800 AC 10/30 INH 0850 Alprazolam 0.25 MG ONCE ONE 10/29 2230 DC 10/30 PO 10/29 2231 0001 Amoxicillin/ 875 MG Q12 10/30 1000 AC Clavulanate Potassium PO Aripiprazole 15 MG DAILY 10/24 1000 AC 10/30 PO 0905 Cyclobenzaprine HCl 10 MG DAILY PRN 10/24 0245 AC 10/29 PO 1337 Escitalopram Oxalate 20 MG DAILY 10/24 1000 AC 10/30 PO 0906 Ezetimibe 10 MG DAILY 10/24 1000 AC 10/30 PO 0908 Insulin Aspart 0 TIDAC 10/24 0800 AC 10/30 SC 0840 Lamotrigine 150 MG BID 10/23 2200 AC 10/30 PO 0906 Lidocaine 1 PAT DAILY 10/25 1000 AC 10/30 EXT 0907 Methylprednisolone 40 MG Q12 10/27 2200 DC 10/29 IV 2141 Morphine Sulfate 2 MG Q6-PRN PRN 10/28 1015 AC 10/28 IV 2311 Nicotine 14 MG DAILY 10/28 1000 AC 10/30 TOP 0907 Nystatin 5 ML 4 TIMES/DAY 10/27 1429 AC 10/30 PO 0907 Omeprazole 40 MG DAILY AC 10/24 0700 AC 10/30 PO 0644 Oxybutynin Chloride 5 MG DAILY 10/24 1000 AC 10/30 PO 0906 Oxycodone/ 1 TAB Q6P PRN 10/25 1215 AC 10/30 Acetaminophen PO 0437 Polyethylene Glycol 17 GM DAILY 10/28 1428 AC 10/30 PO 0907 Pravastatin Sodium 20 MG DAILY 10/24 1000 AC 10/30 PO 0908 Prednisone 50 MG DAILY 10/31 1000 AC PO Senna/Docusate Sodium 2 TAB DAILY PRN 10/28 1430 AC PO Past History Medical History Blood Transfusion Hx: No Neurological: NONE EENT: allergies Cardiovascular: hypertension, hyperlipidemia Respiratory: bronchitis, COPD, emphysema, pneumonia Gastrointestinal: constipation Hepatic: NONE Renal: MULTIPLE CYST ON KIDNEYS AIDE UTI Musculoskeletal: NONE Psychiatric: anxiety, bipolar disease, depression Endocrine: diabetes Blood Disorders: NONE 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 Home Who Do You Live With? self Services at Home: Oxygen Primary Language: Amharic Smoking Status: Current Everyday Smoker (approximately 50 pack years) ETOH Use: denies use Illicit Drug Use: denies illicit drug use Living Will? yes Functional Ability ADLs Independent: dressing, eating, toileting, bathing. Ambulation: cane IADLs Independent: shopping, housework, finances, food prep, telephone, medication admin. Needs Assist: transportation. Review of Systems Review of Systems: Notable for her dyspnea. She says that her breathing has improved significantly with placement and drainage of via the catheter. She has pain related to the rib fractures only and says the catheter site is not painful. She is not aware of any fevers and has had no chills. There is been no anginal type chest pain. She has had no cough or hemoptysis. The rest of the 12 point review of systems is unremarkable. Exam & Diagnostic Data Vital Signs and I&O Vital Signs Date Time Temp Pulse Resp B/P B/P Pulse O2 O2 Flow FiO2 Mean Ox Delivery Rate 10/30 0851 93 Nasal 4.0L Cannula 10/30 0636 98.3 105 20 140/74 92 Nasal 4.0L Cannula 10/30 0000 Nasal 4.0L Cannula 10/29 2223 97.9 104 20 140/78 93 10/29 1645 92 Nasal 4.0L Cannula 10/29 1429 98.7 100 20 148/80 90 Nasal 3.0L Cannula Intake & Output 10/30 1600 10/30 0800 10/30 0000 10/29 1600 10/29 0800 10/29 0000 Intake Total 500 160 360 840 Output Total 1000 800 400 510 225 Balance -500 -640 -400 -150 615 Intake, IV 20 Intake, Oral 500 140 360 840 Output, Chest 10 25 Tube Drainage Output, Urine 1000 800 400 500 200 Physical Exam: On physical examination she is in bed on oxygen and breathing comfortably. Her skin is warm and well-perfused with no suspicious lesions noted. The sclerae are anicteric and mucous membranes are moist. There is no cervical or subclavicular lymphadenopathy. Her breath sounds are faint bilaterally with no wheezes or rhonchi noted. The cardiac exam shows a regular rhythm and rate with no murmurs or sounds. The abdomen is soft and nontender with no masses. The periphery shows no cyanosis clubbing or edema. Her neurologic exam is grossly normal for motor and sensory function. Last 24 Hours of Labs: Laboratory Tests 10/30 814 Chemistry Sodium (137 - 145 mmol/L) 139 Potassium (3.5 - 5.1 mmol/L) 4.2 Chloride (98 - 107 mmol/L) 98 Carbon Dioxide (22 - 30 mmol/L) 30 Anion Gap (5 - 16) 10 BUN (7 - 17 mg/dL) 31 H Creatinine (0.5 - 1.0 mg/dL) 0.8 Estimated GFR (>60 ml/min) > 60 BUN/Creatinine Ratio (7 - 25 %) 38.8 H Hematology CBC w Diff MAN DIFF ORDERED WBC (4.8 - 10.8 /CUMM) 18.6 H RBC (4.20 - 5.40 /CUMM) 4.51 Hgb (12.0 - 16.0 G/DL) 13.8 Hct (37 - 47 %) 41.7 MCV (81.0 - 99.0 FL) 92.4 MCH (27.0 - 31.0 PG) 30.7 RDW (11.5 - 14.5 %) 13.3 Plt Count (130 - 400 /CUMM) 364 MPV (7.4 - 10.4 FL) 8.8 Gran % (42.2 - 75.2 %) 88.1 H Lymphocytes % (20.5 - 51.1 %) 6.0 L Monocytes % (1.7 - 9.3 %) 5.7 Eosinophils % (0 - 5 %) 0.1 Basophils % (0.0 - 2.0 %) 0.1 Absolute Granulocytes (1.4 - 6.5 /CUMM) 16.4 H Segmented Neutrophils (42.2 - 75.2 %) 75 Band Neutrophils (0.0 - 5.0 %) 5 Absolute Lymphocytes (1.2 - 3.4 /CUMM) 1.1 L Lymphocytes (20.5 - 51.1 %) 9 L Monocytes (1.7 - 9.3 %) 5 Absolute Monocytes (0.10 - 0.60 /CUMM) 1.1 H Absolute Eosinophils (0.0 - 0.7 /CUMM) 0 Absolute Basophils (0.0 - 0.2 /CUMM) 0 Metamyelocytes (0.0 - 1.0 %) 4 H Myelocytes (0 - 0 %) 2 H Platelet Estimate (ADEQUATE) ADEQUATE Normocytic RBCs VERIFIED Normochromic RBCs VERIFIED PUBS MCHC (33.0 - 37.0 G/DL) 33.2 Imaging Results: CT of the chest showed a moderate size posterior laying a pleural effusion. Interventional radiology has drawn initially 500 mL and there is now a total of 800 mL of serosanguineous fluid in the Pleur-evac. The the hematocrit is stable at 41. Assessment/Plan Assessment/Plan 67-year-old woman with severe COPD and atraumatic hemothorax which is now drained via an IR place catheter. The nature of the fluid and the appearance of the CT suggests that this is a simple post trauma whose which is now liquefied. We will keep the catheter to wall suction and once the drainage declines I think the catheter can be removed. I see no sense that this is a complicated loculated effusion. Given the nature of the fluid lytic therapy is not possible so we will have to reevaluate if necessary. For now while Pleur-evac will stay on suction and we will monitor output. Of note is that there is no evidence of any ongoing bleeding. Consult Acknowledgment - Thank you for your consult request.
[2017-10-30 14:22] VITALS: BP 140/80
[2017-10-30 23:01] VITALS: BP 140/82
[2017-10-31] VITALS: BP 130/70
[2017-10-31 06:00] VITALS: BP 126/82
[2017-10-31] MEDS ORDERED: AMOX-CLAV 875-1 EACH PO ×2 (06:48→10:21)
--- NOTE | 2017-10-31 06:51 | Patient Discharge Instructions ---
Discharge Instructions General Discharge Information You were seen/treated for: Hemothorax Pneumonia Special Instructions: Please follow up with your primary care physician within 1 week of discharge for DEXA scan scheduling and suture removal. Please follow up with Dr. Corona within one week for a follow-up Xray. Continue to use incentive spirometer. Acute Coronary Syndrome Inclusion Criteria At DC or during hospital stay patient has or had the following: ACS DIAGNOSIS No Discharge Core Measures Meds if any: Prescribed or Continued at Discharge Meds if any: NOT Prescribed or Continued at Discharge Congestive Heart Failure Inclusion Criteria At DC or during hospital stay patient has or had the following: CHF DIAGNOSIS No Discharge Core Measures Meds if any: Prescribed or Continued at Discharge Meds if any: NOT Prescribed or Continued at Discharge Cerebrovascular accident Inclusion Criteria At DC or during hospital stay patient has or had the following: CVA/TIA Diagnosis No Discharge Core Measures Meds if any: Prescribed or Continued at Discharge Meds if any: NOT Prescribed or Continued at Discharge Venous thromboembolism Inclusion Criteria VTE Diagnosis No VTE Type NONE VTE Confirmed by (Test) NONE Discharge Core Measures - Per Current guidelines, there needs to be overlap - treatment for the first 5 days of Warfarin therapy. - If discharged on Warfarin prior to 5 days of - overlap therapy, the patient will need to be - assessed for post discharge needs including - *Post discharge parental anticoagulation - *Warfarin and/or parental anticoagulation education - *Follow up date to check INR post discharge At least 5 days overlap therapy as Inpatient No Meds if any: Prescribed or Continued at Discharge Note: Overlap Therapy is Warfarin and Anticoagulant Meds if any: NOT Prescribed or Continued at Discharge
[2017-10-31] MEDS ORDERED: PERCOCET 5-3251 EACH PO (07:30)
--- NOTE | 2017-10-31 09:22 | PN- Pulmonary ---
Subjective HPI/Critical Care Issues: Complaining of pain at chest tube site. Objective Current Medications: Current Medications Sig/Laura Start time Last Medication Dose Route Stop Time Status Admin Acetaminophen 650 MG Q4P PRN 10/23 1830 AC 10/27 PO 2106 Albuterol Sulfate 3 ML EVERY 4 HRS/AWAKE 10/24 0800 AC 10/29 INH 0830 Alprazolam 0.25 MG ONCE ONE 10/28 2300 DC 10/28 PO 10/28 2301 2311 Aripiprazole 15 MG DAILY 10/24 1000 AC 10/28 PO 0910 Azithromycin 500 MG DAILY 10/24 1000 AC 10/29 Sodium Chloride 250 ML IV 0758 Ceftriaxone Sodium 1,000 MG DAILY 10/24 1000 AC 10/29 IV 0757 Cyclobenzaprine HCl 10 MG .STK-MED ONE 10/28 1734 DC PO 10/28 1735 Cyclobenzaprine HCl 10 MG DAILY PRN 10/24 0245 AC 10/28 PO 2328 Escitalopram Oxalate 20 MG DAILY 10/24 1000 AC 10/28 PO 0911 Ezetimibe 10 MG DAILY 10/24 1000 AC 10/28 PO 0914 Insulin Aspart 0 TIDAC 10/24 0800 AC 10/29 SC 0803 Lamotrigine 150 MG BID 10/23 2200 AC 10/28 PO 2047 Lidocaine 1 PAT DAILY 10/25 1000 AC 10/29 EXT 0803 Methylprednisolone 40 MG Q12 10/27 2200 AC 10/28 IV 2050 Morphine Sulfate 1 MG ONCE ONE 10/29 0130 DC 10/29 IV 10/29 0131 0157 Morphine Sulfate 2 MG Q6-PRN PRN 10/28 1015 AC 10/28 IV 2311 Morphine Sulfate 1 MG Q6-PRN PRN 10/27 1745 DC 10/28 IV 0520 Nicotine 14 MG DAILY 10/28 1000 AC 10/29 TOP 0803 Nicotine 7 MG DAILY 10/24 1333 DC 10/28 TOP 0912 Nystatin 5 ML 4 TIMES/DAY 10/27 1429 AC 10/29 PO 0758 Omeprazole 40 MG DAILY AC 10/24 0700 AC 10/29 PO 0626 Oxybutynin Chloride 5 MG DAILY 10/24 1000 AC 10/28 PO 0910 Oxycodone/ 1 TAB Q6P PRN 10/25 1215 AC 10/29 Acetaminophen PO 0408 Polyethylene Glycol 17 GM DAILY 10/28 1428 AC 10/29 PO 0758 Pravastatin Sodium 20 MG DAILY 10/24 1000 AC 10/28 PO 0913 Senna/Docusate Sodium 2 TAB DAILY PRN 10/28 1430 AC PO Vital Signs & I&O Last 24 Hrs of Vitals and I&O: Vital Signs Date Time Temp Pulse Resp B/P B/P Pulse O2 O2 Flow FiO2 Mean Ox Delivery Rate 10/29 0832 93 Nasal 2.0L Cannula 10/29 0708 97.4 97 20 120/66 91 Nasal 4.0L Cannula 10/29 0235 97.8 103 20 150/90 91 Nasal 4.0L Cannula 10/29 0206 92 Nasal 4.0L Cannula 10/29 0000 92 Nasal 4.0L Cannula 10/28 2221 98.1 101 20 132/70 92 Nasal Cannula 10/28 1635 92 Nasal 4.0L Cannula 10/28 1600 96 Nasal 4.0L Cannula 10/28 1427 97.9 107 20 160/80 91 Nasal 4.0L Cannula 10/28 0909 Nasal 4.0L Cannula Intake & Output 10/29 1600 10/29 0800 10/29 0000 Intake Total 360 840 Output Total 510 225 Balance -150 615 Intake, Oral 360 840 Output, Chest 10 25 Tube Drainage Output, Urine 500 200 Physical Exam General Appearance: no apparent distress, alert, awake, comfortable Head: atraumatic, normal appearance Neck: supple Respiratory: bilateral wheezing through out all lung thompson with diminished breath sounds Cardiovascular: RRR with diminished heart sounds Gastrointestinal: normal bowel sounds, soft, non-tender Extremities: no edema Skin: intact, normal color, warm/dry Results Last 24 Hrs of Lab Results: Laboratory Tests 10/29/17 0737: Anion Gap 6, Estimated GFR > 60, BUN/Creatinine Ratio 28.9 H, CBC w Diff Pending, WBC Pending, RBC Pending, Hgb Pending, Hct Pending, MCV Pending, MCH Pending, RDW Pending, Plt Count Pending, MPV Pending, Gran % Pending, Lymphocytes % Pending, Monocytes % Pending, Eosinophils % Pending, Basophils % Pending, Absolute Granulocytes Pending, Absolute Lymphocytes Pending, Absolute Monocytes Pending, Absolute Eosinophils Pending, Absolute Basophils Pending, PUBS MCHC Pending 10/28/17 1000: Anion Gap 11, Estimated GFR > 60, BUN/Creatinine Ratio 40.0 H Diagnostic Data CXR Findings: 10/27 : Small right pleural effusion and mild right basilar atelectasis status post chest tube placement. No pneumothorax. Impression/Plan Impression/Plan Impression/Plan: 1. Community acquired pneumonia - patient failed out patient treatment. 2. Pleural effusion with elevated leukocytosis, rule out parapneumonic infection versus empyema. 3. Elevated WBC count may be due to steroids. 4. AECOPD with worsening bronchospasm and shortness of breath. 5. Multiple co-morbidities including DM, O2 dependent COPD (3 L baseline), HLD, anxiety, bipolar disorder. Recommendations: * Increase Solumedrol to 40 mg every 6 hours. * Check a follow up CXR - increased effusion, need for thoracentesis? * Continue to follow culture data. * Continue on ceftriaxone and azithro pending results. * Continue nebs/TRC. * O2 titration - keep sats > 92% at rest and > 88% with exertionri. * Medical managment as per primary team. * DVT prophylaxis at all times. * Continue all supportive care. * Plan discussed with patient and primary team. * Thank you for the consult. Will continue to follow and make further recommendations as necessary.
--- NOTE | 2017-10-31 10:04 | RADIOLOGY REPORT ---
EXAMINATION: XR PORTABLE CHEST CLINICAL INFORMATION: Pneumothorax status post chest tube COMPARISON: Chest x-ray 10/29/2017. TECHNIQUE: AP portable view of the chest was obtained. FINDINGS: The previously identified right sided chest tube is not identified on the current exam. Lungs remain hypoexpanded with bibasilar subsegmental atelectasis. There is increased atelectasis of the left lung base. There is persistent small right pleural effusion not significantly changed from the most recent prior study. No pneumothorax is identified at this time. Heart size and pulmonary vascularity is unchanged. IMPRESSION: Hypoexpanded lungs with some increase in subsegmental atelectasis at the right lung base and persistent small right pleural effusion not significantly changed from the most recent study. Right chest tube no longer identified. No pneumothorax
--- NOTE | 2017-10-31 11:46 | PN- Att Addend ---
Attending Addendum Attending Brief Note Patient seen and examined. Resting comfortably not in any acute distress. She reports feeling well this morning. Reports mild cough. Denies shortness of breath with exertion. Reports that chest pain is improved with use of analgesic therapy. She is artery to 94% on her baseline 3 L of oxygen. On auscultation she has fair entry bilaterally with diminished breath sounds in the right lung base. No added sounds. Chest x-ray today shows hypoexpanded lungs with some increasing subsegmental atelectasis in the right base and persistent small right pleural effusion not significantly changed since last study. Recommendations: -Patient is medically stable to be discharged home today. -She is to follow-up with the pulmonology service as an outpatient next week for repeat chest imaging to monitor for pleural effusion. - She has been instructed to Utilize incentive spirometry upon discharge home. - She is to complete an oral antibiotic course for her pneumonia and to complete a prednisone taper for her COPD exacerbation. - She has been provided with prescriptions for Percocet for her chest pain. -She is to follow-up with her primary care provider for a DEXA scan as an outpatient
[2017-10-31 11:51] LABS: ABSOLUTE BASOPHIL COUNT 0 /CUMM (0.0-0.2); ABSOLUTE EOSINOPHIL COUNT 0.4 /CUMM (0.0-0.7); ABSOLUTE GRANULOCYTE CT 15.8 /CUMM (1.4-6.5); ABSOLUTE LYMPH COUNT 1.8 /CUMM (1.2-3.4); ABSOLUTE MONOCYTE COUNT 1.5 /CUMM (0.10-0.60); BASOPHIL % 0 % (0.0-2.0); EOSINOPHIL % 2.1 % (0-5); GRANULOCYTE % 80.9 % (42.2-75.2); HEMATOCRIT 43.3 % (37-47); MEAN CORPUSCULAR HGB 30.7 PG (27.0-31.0); MEAN CORPUSCULAR HGB CONC 33.2 G/DL (33.0-37.0); MEAN CORPUSCULAR VOLUME 92.7 FL (81.0-99.0); MEAN PLATELET VOLUME 8.5 FL (7.4-10.4); PLATELET COUNT 370 /CUMM (130-400); RBC DISTRIBUTION WIDTH 13.5 % (11.5-14.5); RED BLOOD CELL CT 4.68 /CUMM (4.20-5.40); WHITE BLOOD CELL COUNT 19.5 /CUMM (4.8-10.8)
--- NOTE | 2017-10-31 13:01 | PN- Housestaff ---
Subjective Follow-up For: Pneumothorax Pneumonia Exacerbation Subjective: Patient was seen and examined at bedside. She was resting comfortably. She had no acute events overnight. She continues to complain of right lateral chest pain. She had an episode of lightheadedness overnight which results when her O2 was turned up to 4 L. He continues to complain of cough. She currently denies any nausea, vomiting, fever, chills, breath. Review of Systems Constitutional: Denies: chills, fever. Cardiovascular: Reports: chest pain. Denies: palpitations. Respiratory: Reports: cough. Denies: short of breath, sputum production. Gastrointestinal: Reports: no symptoms. Genitourinary: Reports: no symptoms. Musculoskeletal: Reports: no symptoms. Objective Last 24 Hrs of Vital Signs/I&O Vital Signs Date Time Temp Pulse Resp B/P B/P Pulse O2 O2 Flow FiO2 Mean Ox Delivery Rate 10/31 0926 94 Nasal 3.0L Cannula 10/31 0800 92 Nasal 3.5L Cannula 10/31 0600 97.4 97 20 126/82 92 Nasal 4.0L Cannula 10/31 0000 92 Nasal 4.5L Cannula 10/31 0000 98 20 130/70 90 Nasal 3.0L Cannula 10/30 2301 97.5 105 18 140/82 90 Nasal Cannula 10/30 1715 92 Nasal 3.0L Cannula 10/30 1600 Nasal 3.0L Cannula 10/30 1422 98.2 106 19 140/80 95 Intake & Output 10/31 1600 10/31 0800 10/31 0000 Intake Total 200 160 Output Total 350 Balance -150 160 Intake, IV 20 Intake, Oral 200 140 Output, Urine 350 Physical Exam General Appearance: Alert, Oriented X3, Cooperative, No Acute Distress Skin Temp/Moisture Exam: Warm/Dry Sepsis Skin Exam (color): Normal for Ethnicity Cardiovascular: Regular Rate, Normal S1, Normal S2, No Murmurs Lungs: diminished breath sounds with some crackles on the right lung base Abdomen: Normal Bowel Sounds, Soft, No Tenderness Neurological: Normal Speech, Sensation Intact Extremities: No Clubbing, No Cyanosis, No Edema Current Medications: Current Medications Sig/Laura Start time Last Medication Dose Route Stop Time Status Admin Acetaminophen 650 MG Q4P PRN 10/23 1830 AC 10/27 PO 2106 Albuterol Sulfate 3 ML EVERY 4 HRS/AWAKE 10/24 0800 AC 10/31 INH 1157 Alprazolam 0.25 MG ONCE ONE 10/30 2045 DC 10/30 PO 10/30 Amoxicillin/ 875 MG Q12 10/30 1000 AC 10/31 Clavulanate Potassium PO 0848 Aripiprazole 15 MG DAILY 10/24 1000 AC 10/31 PO 0847 Cyclobenzaprine HCl 10 MG DAILY PRN 10/24 0245 AC 10/29 PO 1337 Escitalopram Oxalate 20 MG DAILY 10/24 1000 AC 10/31 PO 0848 Ezetimibe 10 MG DAILY 10/24 1000 AC 10/31 PO 0847 Insulin Aspart 0 TIDAC 10/24 0800 AC 10/30 SC 0840 Lamotrigine 150 MG BID 10/23 2200 AC 10/31 PO 0848 Lidocaine 1 PAT DAILY 10/25 1000 AC 10/31 EXT 0849 Morphine Sulfate 2 MG Q6-PRN PRN 10/28 1015 AC 10/31 IV 0521 Nicotine 14 MG DAILY 10/28 1000 AC 10/31 TOP 0847 Nystatin 5 ML 4 TIMES/DAY 10/27 1429 AC 10/31 PO 0845 Omeprazole 40 MG DAILY AC 10/24 0700 AC 10/31 PO 0521 Oxybutynin Chloride 5 MG DAILY 10/24 1000 AC 10/31 PO 0848 Oxycodone/ 1 TAB Q6P PRN 10/25 1215 AC 10/31 Acetaminophen PO 0851 Polyethylene Glycol 17 GM DAILY 10/28 1428 AC 10/31 PO 0847 Pravastatin Sodium 20 MG DAILY 10/24 1000 AC 10/31 PO 0848 Prednisone 50 MG DAILY 10/31 1000 AC 10/31 PO 0851 Senna/Docusate Sodium 2 TAB DAILY PRN 10/28 1430 AC PO Last 24 Hrs of Lab/Zeus Results Last 24 Hrs of Labs/Mics: Laboratory Tests 10/31/17 1040: CBC w Diff NO MAN DIFF REQ, RBC 4.68, MCV 92.7, MCH 30.7, RDW 13.5, MPV 8.5, Gran % 80.9 H, Lymphocytes % 9.4 L, Monocytes % 7.6, Eosinophils % 2.1, Basophils % 0, Absolute Granulocytes 15.8 H, Absolute Lymphocytes 1.8, Absolute Monocytes 1.5 H, Absolute Eosinophils 0.4, Absolute Basophils 0, PUBS MCHC 33.2 Orders Radiology Findings: CXR \Hypoexpanded lungs with some increase in subsegmental atelectasis at the right lung base and persistent small right pleural effusion not significantly changed from the most recent study. Right chest tube no longer identified. No pneumothorax Assessment/Plan Assessment: Patient is a 65-year-old female with a PMH significant for DM, O2 dependent COPD (3 L baseline), HLD, anxiety, bipolar disorder who was brought into the ED by ambulance complaining of shortness of breath, and productive cough. #Hemothorax Repeat CXR yesterday shows stable right-sided pleural effusion status post removal of chest tube -Patient's H/H has remained stable. -Pleural fluid studies showed large number of RBCs consistent with hemothorax, likely secondary to rib fractures, currently no growth on culture, will follow up cytology -Recommend following up with PCP within one week for further workup of her fractures including DEXA scan #Acute hypoxic respiratory failure secondary to COPD exacerbation Patient reported desaturation to 84% at home prior to EMS arrival. She has a history of COPD and has had a productive cough for the past month which she failed outpatient steroid taper. Rapid flu test negative. -She is medically stable for discharge -TRC/Nebs -We'll DC on oral prednisone taper -Patient recommended to continue incentive spirometry as outpatient follow-up with Dr. Hutchison in 1 week for repeat CXR #Community acquired pneumonia patient is afebrile on abx and steroids currently, leukocytosis may represent emargination secondary to steroid use or acute infectious process with pneumonia. - follow up Blood cultures(currently negative for growth), sputum culture -Continue oral Augmentin, discharged with a prescription to complete a total of 10 day course of antibiotics - pulmonary evaluation and recommendations appreciated #nicotine dependence -Smoking cessation counseling given - nicotine patch #DM -Hold home metformin, continue with novolog sliding scale - accuchecks TIDAC/HS #Chronic medical problems -continue with home medications including pravastatin, oxybutynin, Lexapro, Zetia, abilify, Lamictal #DVT prophylaxis -ALPS and SC heparin #Code status -Full code Problem List: 1. Hemothorax 2. COPD with exacerbation Pain Ratin Pain Location: Right lateral chest Pain Goal: Pain 4 or less Pain Plan: Pain pathway Tomorrow's Labs & Rationales: None
[2017-10-31 14:09] VITALS: BP 120/68
--- NOTE | 2017-11-03 15:44 | Discharge Summary ---
Visit Information Visit Dates Admission Date: 10/23/17 Discharge Date: 10/31/17 Hospital Course Course Attending Physician: Marley Crews MD Primary Care Physician: Ishmael FREEDMAN,Alhaji Serrato Other Care Providers: Fahad Corona MD, MD, Saleem Lugo MD, [facility] Course: Patient is a 65-year-old female with a PMH significant for DM, O2 dependent COPD (3 L baseline), HLD, anxiety, bipolar disorder who was brought into the ED by ambulance complaining of shortness of breath, and productive cough. She reported that these symptoms had been present for over a month and had prompted numeorous previous visits to the ED. VS on admission: T 96.6, P 103, RR 18, BP 110/63, Pulse ox 94 on 3L NC Labs on admission: WBC 11.4, H/H 12.7/38.2, plt 303, Na 140, K 4.5, Cl 103, CO2 25, BUN 26, Cr 0.9, Glu 141 Patient was admitted to the general medicine for treatment of the following problems: #Hemothorax Patient had persistent symptoms for over one month resulting in multiple ED visits. On one of these visits CT chest showed fractures of the 8th and 9th ribs on the right side. She denied any recent chest trauma. CT chest on this admission showed evolving R sided pleural effusion that was suspicious for empyema or hemothorax given the chronicity of her symptoms. CT surgery was consulted and a chest tube was placed on 10/27/17 and hooked up to low wall suction. A total of 850 mL of bloody fluid was removed and the fluid analysis showed elevated RBC count. Cytology did not show signs of malignancy. The chest tube was removed on 10/29/17 when the output had ceased. The hemothorax was pressumably due to the rib fractures however the lack of an inciting event for the fractures remains concerning. She was recommended to follow up with her PCP for DEXA scan, and suture removal, and Dr. Corona for monitoring for reaccumulation of hemothorax. #Community Acquired pneumonia Patient failed outpatient antibiotic treatment with doxycycline. She had a productive cough and elevated white count during this hospitalization. A L sided basilar opacity was also seen on CXR not assocaited with the hemothorasx which likely represented a pneumonia. She recieved 7 days of antibiotic therapy with IV Azithromycin and IV Ceftriaxone, and was discharged on a 3 day course of Augmentin to complete a 10 day course. She was encouraged to continue to use her incentive spirometer as an outpatient. #Acute hypoxic respiratory failure/COPD exacerbation The patient reported that her pulse ox was 84% prior to presenting to the ED when she measured it as she was feeling lightheaded. A steroid taper was given, initally IV solumedrol which was tapered throughout the hospital visit, and she was discharged with an oral predisone taper. She received total respiratory care with regular nebulizer treatemnts. She had an increased supplemental O2 demand within the hospital, on 4L O2 NC, up from her baseline 3L. She was able to be weaned down to 3 L beforedischarge. #DM She was kept on a Novolog sliding scale while admitted. Her fingerstick glucose levels ranged from 94-225 on this admission. #Nicotine dependence Patient received smoking cessation counseling, and was provided with nicotine patches. DVT prophylaxis was addressed with SC heparin and ALPS Allergies: Coded Allergies: Penicillins (RASH 10/10/17) azithromycin (From ZITHROMAX Z-ERNESTINA) (RASH 10/10/17) ciprofloxacin (From CIPRO HC) (FACIAL SWELLING, HIVES 10/10/17) clarithromycin (From BIAXIN) (RASH 10/10/17) hydrocortisone (From CIPRO HC) (FACIAL SWELLING 01/21/16) levofloxacin (From LEVAQUIN) (RASH 10/10/17) meperidine (From DEMEROL) (UNKNOWN PER PT 10/10/17) rofecoxib (From VIOXX) (RASH 10/10/17) Significant Procedures: Chest tube placement and subsequent removal Chest CT 1. A moderate-sized dependent right pleural effusion is new from the prior CT and relatively dense. This may correspond to hemothorax related to the adjacent eighth and ninth rib fractures. A complex parapneumonic effusion is possible, though felt to be less likely as the opacification of the adjacent right lower lobe has more of the appearance of atelectasis than consolidation. 2. Centrilobular emphysema. Disposition Summary Disposition Principal Diagnosis: Hemothorax Additional Diagnosis: Acute hypoxic respiratory failure, COPD exacerbation, Community acquired Pneumonia Discharge Disposition: home or self care Discharge Instructions General Discharge Information Code Status: Full Code Patient's Diet: Diabetic diet Patient's Activity: As tolerated Follow-Up Instructions/Appts: Follow up with your primary care physician within 1 week of discharge for DEXA scan scheduling and suture removal. Follow up with Dr. Corona within one week for a follow-up Xray. Medications at Discharge Discharge Medications: Stop taking the following medications: Doxycycline Hyclate (Doxycycline Hyclate) 100 MG TABLET ORAL TWICE DAILY Qty = 20 Continue taking these medications: Tiotropium Br/Olodaterol HCl (Stiolto Respimat Inhal [place]) 2.5 MCG-2.5 MCG/ ACTUATION MIST.INHAL 1 PUFF Inhale through mouth TWICE DAILY Linaclotide (Linzess) 145 MCG CAPSULE 0.5 Milligram ORAL DAILY as needed for CONSTIPATION Pravastatin Sodium (Pravastatin Sodium) 20 MG TABLET 1 Tablet ORAL DAILY Comments: LAST TAKEN: 10/31/17 @ 9 AM Solifenacin Succinate (Vesicare) 5 MG TABLET 1 Tablet ORAL DAILY Comments: NOT TAKEN IN HOSPITAL Meloxicam (Meloxicam) 7.5 MG TABLET 1 Tablet ORAL DAILY Qty = 180 Comments: NOT TAKEN IN HOSPITAL Escitalopram Oxalate (Lexapro) 20 MG TABLET 1 Tablet ORAL DAILY Qty = 30 Comments: LAST TAKEN: 10/31/17 @ 9AM Metformin HCl (Metformin HCl) 1,000 MG TABLET 1 Tablet ORAL DAILY Qty = 90 Comments: NOT TAKEN IN HOSPITAL Omeprazole (Omeprazole) 40 MG CAPSULE.DR 1 Capsule ORAL DAILY Qty = 90 Comments: LAST TAKEN: 10/31/17 @ 9AM Lamotrigine (Lamotrigine) 150 MG TABLET 1 Tablet ORAL TWICE DAILY Qty = 60 Comments: LAST TAKEN: 10/31/17 @ 9 am Aripiprazole (Abilify) 15 MG TABLET 1 Tablet ORAL DAILY Qty = 30 Comments: LAST TAKEN: 10/31/17 @ 9 AM Ezetimibe (Zetia) 10 MG TABLET 1 Tablet ORAL DAILY Qty = 90 Comments: LAST TAKEN: 10/31/17 @ 9 AM Albuterol Sulfate (Albuterol Sulfate) 2.5 MG/3 ML (0.083 %) VIAL.NEB 1 Vial Inhale Solution EVERY 4 HOURS NEEDED as needed for RESPIRATORY Qty = 300 Metoclopramide HCl (Metoclopramide HCl) 5 MG TABLET 1 Tablet ORAL as needed for GI Suvorexant (Belsomra) 20 MG TABLET 1 Tablet ORAL Every night Qty = 30 Comments: NOT TAKEN IN HOSPITAL Ibuprofen (Ibuprofen) 800 MG TABLET 1 Tablet ORAL as needed for PAIN/INFLAMMATION Qty = 90 Oxycodone HCl/Acetaminophen (Percocet 5-325 MG Tablet) 5 MG-325 MG TABLET 1 Tablet ORAL 4 TIMES A DAY as needed for pain Qty = 10 Comments: LAST TAKEN: 10/31/17 @ 9 AM Hydrocodone/Acetaminophen (Vicodin 5-300 MG Tablet) 5 MG-300 MG TABLET 1 Tablet ORAL TWICE DAILY Qty = 10 Comments: NOT TAKEN IN HOSPITAL Prednisone (Prednisone) 20 MG TABLET 1 Tablet ORAL TWICE DAILY Qty = 10 Comments: LAST TAKEN: 10/31/17 @ 9AM Start taking the following new medications: Amoxicillin/Clavulanate Potass (Amox-Clav 875-125 MG Tablet) 875 MG-125 MG TABLET 875 Milligram ORAL EVERY 12 HOURS Qty = 5 No Refills Instructions: . Comments: LAST TAKEN: 10/31/17 @ 9AM Oxycodone HCl/Acetaminophen (Percocet 5-325 MG Tablet) 5 MG-325 MG TABLET 1 Tablet ORAL EVERY SIX HOURS NEEDED as needed for PAIN SCALE 7-10 ( SEVERE) Qty = 10 No Refills The following medications have been changed: Old: Cyclobenzaprine HCl (Cyclobenzaprine HCl) 10 MG TABLET 1 Tablet ORAL THREE TIMES DAILY as needed for pain Qty = 30 New: Cyclobenzaprine HCl (Cyclobenzaprine HCl) 10 MG TABLET 1 Tablet ORAL DAILY as needed for pain Qty = 30 Copies To: Cj FREEDMAN,Fahad Ross; Ishmael FREEDMAN,Alhaji Serrato
== END 2017-10-31 14:11 | disposition home health service (06) | DRG 186 ==
LOC: ERH 13:35 → 2NA 16:15 → ERHI 16:15 → ENRESERV 16:59 → ENTRNSPT 18:05 → 2NA 18:23 → CMPTRNSPT 18:39 → 2NA 10-24 08:09 → ENPENDDIS 10-31 10:36 → 2NA 10-31 14:11
PROVIDERS: Dermatology; Physician Assistant Medical; Student in an Organized Health Care Education/Training Program
PROC: 0W9930Z Drainage of Right Pleural Cavity with Drainage Device, Percutaneous Approach (ICD-10-PCS; principal; 2017-10-27)
DX: J94.2 Hemothorax (principal); J18.9 Pneumonia, unspecified organism; J96.21 Acute and chronic respiratory failure with hypoxia; J44.0 Chronic obstructive pulmonary disease with (acute) lower respiratory infection; S22.41XA Multiple fractures of ribs, right side, initial encounter for closed fracture; J44.1 Chronic obstructive pulmonary disease with (acute) exacerbation; Z99.81 Dependence on supplemental oxygen; F17.210 Nicotine dependence, cigarettes, uncomplicated; E11.9 Type 2 diabetes mellitus without complications; X58.XXXA Exposure to other specified factors, initial encounter; F41.9 Anxiety disorder, unspecified; F31.9 Bipolar disorder, unspecified; I10 Essential (primary) hypertension; E78.5 Hyperlipidemia, unspecified; K59.00 Constipation, unspecified
CPT/HCPCS: 2NAP; 87075; 36415; 81003; 82436; 87040; 87070; 87449; 87450; 87804; 87804-59; 88305; 93005; 93010; 96374; 96375; J0456; J0696; J1644; J2270; J2920; J2930; J7040

== ENCOUNTER 2017-11-14 14:51 | Observation (INO) | payer OTHER ==
[~2017-11-14] VITALS: Ht 170.2 cm; Wt 90.7 kg
[~2017-11-14 14:51] MED LIST changes: +AMOX-CLAV 875-1 EACH PO
--- NOTE | 2017-11-14 15:03 | ED DYSPNEA/ASTHMA COMPLAINT ---
History of Present Illness General Chief Complaint: Dyspnea (COPD, CHF, Other) Stated Complaint: BIBA SOB Source: patient Exam Limitations: no limitations Vital Signs & Intake/Output Vital Signs & Intake/Output Vital Signs Date Time Temp Pulse Resp B/P B/P Pulse O2 O2 Flow FiO2 Mean Ox Delivery Rate 11/14 1526 Nasal 3.0L Cannula 11/14 1457 95 Nasal 3.0L Cannula 11/14 1453 95.0 121 24 153/68 91 Nasal 3.0L Cannula Allergies Coded Allergies: Penicillins (RASH 10/10/17) azithromycin (From ZITHROMAX Z-ERNESTINA) (RASH 10/10/17) ciprofloxacin (From CIPRO HC) (FACIAL SWELLING, HIVES 10/10/17) clarithromycin (From BIAXIN) (RASH 10/10/17) hydrocortisone (From CIPRO HC) (FACIAL SWELLING 01/21/16) levofloxacin (From LEVAQUIN) (RASH 10/10/17) meperidine (From DEMEROL) (UNKNOWN PER PT 10/10/17) rofecoxib (From VIOXX) (RASH 10/10/17) Reconcile Medications Albuterol Sulfate 2.5 MG/3 ML (0.083 %) VIAL.NEB 1 Vial INH/NEHAL 4XDAILY RESP. (Reported) Aripiprazole (Abilify) 15 MG TABLET 1 TAB PO DAILY MENTAL HEALTH (Reported) Biotin (Unknown Strength) CAPSULE (Unknown Dose) PO DAILY SUPPLEMENT ( Reported) Cyclobenzaprine HCl 10 MG TABLET 1 TAB PO DAILY PRN pain Escitalopram Oxalate (Lexapro) 20 MG TABLET 1 TAB PO DAILY MENTAL HEALTH ( Reported) Ezetimibe (Zetia) 10 MG TABLET 1 TAB PO DAILY CHOLESTEROL (Reported) Ibuprofen 800 MG TABLET 1 TAB PO PRN PAIN/INFLAMMATION (Reported) Lamotrigine 150 MG TABLET 1 TAB PO BID BIPOLAR (Reported) Linaclotide (Linzess) 72 MCG CAPSULE 1 CAP PO DAILY GI (Reported) Magnesium Oxide (Magnesium) (Unknown Strength) CAPSULE (Unknown Dose) PO DAILY SUPPLEMENT (Reported) Meloxicam 7.5 MG TABLET 1 TAB PO PRN PAIN/INFLAMMATION (Reported) Metformin HCl 1,000 MG TABLET 1 TAB PO DAILY DM (Reported) Metoclopramide HCl 5 MG TABLET 1 TAB PO PRN GI (Reported) Multiple Vitamin (Multivitamins) 1 EACH TABLET 1 TAB PO DAILY SUPPLEMENT ( Reported) Omeprazole 40 MG CAPSULE. 1 CAP PO DAILY ACID REFLUX (Reported) Pravastatin Sodium 20 MG TABLET 1 TAB PO DAILY CHOLESTEROL (Reported) Prednisone (Unknown Strength) TABLET (Unknown Dose) PO AD STEROID TAPER ( Reported) Solifenacin Succinate (Vesicare) 5 MG TABLET 1 TAB PO DAILY INCONTINENCE ( Reported) Suvorexant (Belsomra) 20 MG TABLET 1 TAB PO QPM SLEEP (Reported) Tiotropium Br/Olodaterol HCl (Stiolto Respimat Inhal [place]) 2.5 MCG-2.5 MCG/ ACTUATION MIST.INHAL 1 PUFF INH BID EMPHYSEMA (Reported) Vitamin E Mixed (Vitamin E) (Unknown Strength) TABLET (Unknown Dose) PO DAILY SUPPLEMENT (Reported) Triage Note: PT BIBA FROM HOME WITH INCREASED SOB AND LOW 02 SATS. PT HAS VISITING NURSE WHO WAS CONCERNED WITH PTS SATS IN THE HIGH 80'S ON 2L 02. PT STATES HER BASELINE IS 93%. UPON ARRIVAL TO ED AND TRANSFER TO THE STRETCHER SAT WAS 88%. PLACED ON 02 AND PT STATES SHE CAN USE 4L 02 AT TIMES TO HELP BOOST HER NUMBERS, AND SATS INCREASED TO 91%. PT DENIES ANY CP. DENIES ANY OTHER C/O AT THIS TIME OTHER THAN THE SOB. PER EMS VISITING NURSE WAS ALSO CONCERNED WITH PT AND THAT SHE IS NOT ABLE TO CONTINUE TO TAKE CARE OF HERSELF AT HOME. Triage Nurses Notes Reviewed? yes Onset: Abrupt Duration: day(s):, constant, getting worse Timing: recent history Severity: moderate, severe Activities at Onset: none HPI: 67-year-old female comes into emergency room with complaints of progressive shortness of breath has been going on for the past couple weeks and she was discharged. Patient reports that she has a history of COPD. She is on 3 L of oxygen normally. She has increased weakness. Difficulty with ambulation. Denies any fever. Denies any vomiting. Denies any chest pain currently. She lives at home. Apparently the nurse sent her in for concerns of low oxygen and inability to take care of herself at home. (Nader Vail) Past History Travel History Traveled to [place] past 21 day No Medical History Any Pertinent Medical History? 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 No (Nader V[place]) Review of Systems Review of Systems Constitutional: Reports: see HPI. EENTM: Reports: no symptoms. Respiratory: Reports: see HPI. Cardiovascular: Reports: no symptoms. GI: Reports: no symptoms. Genitourinary: Reports: no symptoms. Musculoskeletal: Reports: no symptoms. Skin: Reports: no symptoms. Neurological/Psychological: Reports: no symptoms. Hematologic/Endocrine: Reports: no symptoms. Immunologic/Allergic: Reports: no symptoms. All Other Systems: Reviewed and Negative (Nader V[place]) Physical Exam Physical Exam General Appearance: alert, awake, mild distress Head: atraumatic Eyes: Bilateral: normal appearance. Ears, Nose, Throat: normal ENT inspection, hearing grossly normal Neck: normal inspection Respiratory: decreased breath sounds, respiratory distress (MILD) Cardiovascular: regular rate/rhythm Gastrointestinal: soft Extremities: normal inspection Neurologic/Psych: awake, alert, oriented x 3 Skin: intact, normal color Core Measures ACS in differential dx? No CVA/TIA Diagnosis No Sepsis Present: No Sepsis Focused Exam Completed? No (Nader V[place]) Progress Differential Diagnosis: asthma, AMI, bronchitis, costochondritis, CHF, COPD, pericarditis, pulmonary embolism, pneumonia, pneumothorax, unstable angina Plan of Care: Orders Procedure Date/time Status Heart Healthy Diet 11/[address] in observation 11/14 171 Active ED Holding Orders 11/14 171 Active Patient Data 11/14 1710 Active Vital Signs 11/14 171 Active Code Status 11/14 1710 Active Intake & Output 11/14 1636 Active Add-on Test (ER Only) 11/14 1503 Active Telemetry/Fast Food Crew Member 11/14 1503 Active TROPONIN LEVEL 11/14 1503 Complete COMPREHENSIVE METABOLIC PANEL 11/14 1503 Complete CBC WITHOUT DIFFERENTIAL 11/14 1503 Complete B-TYPE NATRIURETIC PEP (BNP) 11/14 1503 Complete EKG 11/14 1503 Active Laboratory Tests 11/14/17 1603: Anion Gap 16, Estimated GFR > 60, BUN/Creatinine Ratio 28.8 H, Glucose 195 H, Calcium 9.6, Total Bilirubin 0.5, AST 26, ALT 46, Alkaline Phosphatase 116, Troponin I < 0.01, Nmt-E-Vutfgnaojmm Pept 27.6, Total Protein 7.2, Albumin 4.1, Globulin 3.1, Albumin/Globulin Ratio 1.3, CBC w Diff NO MAN DIFF REQ, RBC 4.46, MCV 91.5, MCH 30.3, RDW 13.1, MPV 8.2, Gran % 94.7 H, Lymphocytes % 4.9 L, Monocytes % 0.3 L, Eosinophils % 0.1, Basophils % 0, Absolute Granulocytes 8.4 H, Absolute Lymphocytes 0.4 L, Absolute Monocytes 0 L, Absolute Eosinophils 0, Absolute Basophils 0, PUBS MCHC 33.1 Diagnostic Imaging: Viewed by Me: Radiology Read. Discussed w/RAD: Radiology Read. Radiology Impression: PATIENT: JOSEPH DEVRIES PRESENT AGE: 67 PATIENT ACCOUNT NO: [id number] : 48 LOCATION: [facility] ORDERING PHYSICIAN: Nader GOMEZ SERVICE DATE: 11/14/17 EXAM TYPE : RAD - XRY-PORTABLE CHEST XRAY EXAMINATION: XR PORTABLE CHEST CLINICAL INFORMATION: Shortness of breath COMPARISON: Multiple prior studies most recently 10/31/2017. TECHNIQUE: Portable 80 degrees upright view of the chest was obtained. FINDINGS: The cardiac silhouette is not enlarged. Trace right pleural effusion is seen. Bibasilar atelectasis is unchanged on the right and slightly improved on the left. There is increased vascular congestion when compared to prior which is superimposed on underlying chronic lung changes. This raises the concern of mild edema. IMPRESSION: Suspect mild pulmonary edema difficult to evaluate due to the underlying pulmonary changes. Persistent small right pleural effusion and bibasilar opacities with slight improvement at the left base since prior. DICTATED BY: Ventura Robert MD DATE/TIME DICTATED:01/1523 VALUE ENGINEER:NATALIE DATE/TIME TRANSCRIBED:11/14/171523 CONFIDENTIAL, DO NOT COPY WITHOUT APPROPRIATE AUTHORIZATION. <Electronically signed in Other Vendor System> SIGNED BY: Ventura Robert MD 11/14/17 1530 Initial ED EKG: normal sinus rhythm, rate (113) (Nader Vail) Departure Departure Disposition: STILL A PATIENT Condition: Stable Clinical Impression Primary Impression: COPD exacerbation Referrals: Ishmael FREEDMAN,Alhaji Serrato (PCP/Family) Departure Forms: Customer Survey General Discharge Information Observation Note Spoke With: Jose Eduardo FREEDMAN,[place] Physician Advisor Notified: ISRA MALCOLM DO Place Patient In: Non-ED OBS Care Area Rationale for Observation: My rational for observation is as follows PT UNABLE TO DO STAIRA. LIVES ON NSECOND FLOOR APRARTMENT. Patient will require nebulizer treatment. IV steroids. Short of breath on exertion. Medically not safe for discharge at this time. Physical therapy consultation. will require Safe discharge plan. (Nader Vail) PA/RETAIL BANKER Co-Sign Statement Statement: ED Attending supervision documentation- [X] I saw and evaluated the patient. I have also reviewed all the pertinent lab results and diagnostic results. I agree with the findings and the plan of care as documented in the PA's/RETAIL BANKER's documentation. [] I have reviewed the ED Record and agree with the PA's/RETAIL BANKER's documentation. [] Additions or exceptions (if any) to the PAs/RETAIL BANKER's note and plan are summarized below: [] (Isra Malcolm DO) Critical Care Note Critical Care Note Critical Care Time: non-applicable (Nader Vail)
--- NOTE | 2017-11-14 15:30 | RADIOLOGY REPORT ---
EXAMINATION: XR PORTABLE CHEST CLINICAL INFORMATION: Shortness of breath COMPARISON: Multiple prior studies most recently 10/31/2017. TECHNIQUE: Portable 80 degrees upright view of the chest was obtained. FINDINGS: The cardiac silhouette is not enlarged. Trace right pleural effusion is seen. Bibasilar atelectasis is unchanged on the right and slightly improved on the left. There is increased vascular congestion when compared to prior which is superimposed on underlying chronic lung changes. This raises the concern of mild edema. IMPRESSION: Suspect mild pulmonary edema difficult to evaluate due to the underlying pulmonary changes. Persistent small right pleural effusion and bibasilar opacities with slight improvement at the left base since prior.
[2017-11-14 16:16] LABS: ABSOLUTE BASOPHIL COUNT 0 /CUMM (0.0-0.2); ABSOLUTE EOSINOPHIL COUNT 0 /CUMM (0.0-0.7); ABSOLUTE GRANULOCYTE CT 8.4 /CUMM (1.4-6.5); ABSOLUTE LYMPH COUNT 0.4 /CUMM (1.2-3.4); ABSOLUTE MONOCYTE COUNT 0 /CUMM (0.10-0.60); BASOPHIL % 0 % (0.0-2.0); EOSINOPHIL % 0.1 % (0-5); HEMATOCRIT 40.8 % (37-47); MEAN CORPUSCULAR HGB 30.3 PG (27.0-31.0); MEAN CORPUSCULAR HGB CONC 33.1 G/DL (33.0-37.0); MEAN CORPUSCULAR VOLUME 91.5 FL (81.0-99.0); MEAN PLATELET VOLUME 8.2 FL (7.4-10.4); PLATELET COUNT 295 /CUMM (130-400); RBC DISTRIBUTION WIDTH 13.1 % (11.5-14.5); RED BLOOD CELL CT 4.46 /CUMM (4.20-5.40); WHITE BLOOD CELL COUNT 8.9 /CUMM (4.8-10.8)
[2017-11-14 16:36] LABS: GRANULOCYTE % 94.7 % (42.2-75.2)
--- NOTE | 2017-11-14 17:36 | History & Physical ---
[facility] 11/14/17 1728: General Information and HPI MD Statement: I have seen and personally examined JOSEPH DEVRIES and documented this H&P. The patient is a 67 year old F who presented with a patient stated chief complaint of []. History of Present Illness: 67 YO F with PMH of DM, COPD on 3L home O2, HLD, HTN, anxiety, bipolar disorder, multiple renal cysts and UTI came to ED with chief complaint of shortness of breath at rest, the saturation on 3 L of oxygen and increased blood pressure this morning. Patient reported that she was in her usual state of health and getting occupational therapy this morning when she started to have short of breath at rest and she increased her home oxygen from 3 L to 4 L but she was still having short of breath and also she desaturated to 90% on 4 L with increase in blood pressure than the occupational therapist called to our primary care physician who advised her to go to ED. Patient reported that exertional dyspnea is her baseline even on 3 L of oxygen but at rest she never had short of breath. She also endorsed that for last 1 week she's not feeling well and having progressively increased short of breath at this morning it was severe. Patient reported that she is not taking any medication for her blood pressure. She denied any chest pain, palpitation, chills, fever, nausea, vomiting, dizziness, loss of consciousness, hematemesis, abdominal pain and dysuria. Patient was admitted last time October 2017 when she came in with shortness of breath and found to have pneumonia that exacerbate the COPD and on CT scan chest found to have fractured triple with hemothorax. On last admission thoracentesis was done with chest tube intubation and 850 mL blood was removed. Last echocardiogram was done on 11/09/2011 that is showing ejection fraction 55% ED course: Vitals: Temperature 95.0, pulse 121, respiratory rate 24, BP 153/68, oxygen saturation 91% on room air. Labs: WBC count 8.9, hemoglobin 13.5, hematocrit 40.8, platelet count 295, sodium 144, potassium 4.5, anion gap 16, BUN 23, creatinine 0.8, BUN/creatinine ratio 28.8, glucose 195, calcium 9.6, AST 26, ALT 46 Allergies/Medications Allergies: Coded Allergies: Penicillins (RASH 10/10/17) azithromycin (From ZITHROMAX Z-ERNESTINA) (RASH 10/10/17) ciprofloxacin (From CIPRO HC) (FACIAL SWELLING, HIVES 10/10/17) clarithromycin (From BIAXIN) (RASH 10/10/17) hydrocortisone (From CIPRO HC) (FACIAL SWELLING 01/21/16) levofloxacin (From LEVAQUIN) (RASH 10/10/17) meperidine (From DEMEROL) (UNKNOWN PER PT 10/10/17) rofecoxib (From VIOXX) (RASH 10/10/17) Home Med list Albuterol Sulfate 2.5 MG/3 ML (0.083 %) VIAL.NEB 1 Vial INH/NEHAL 4XDAILY RESP. (Reported) Aripiprazole (Abilify) 15 MG TABLET 1 TAB PO DAILY MENTAL HEALTH (Reported) Biotin (Unknown Strength) CAPSULE (Unknown Dose) PO DAILY SUPPLEMENT ( Reported) Cyclobenzaprine HCl 10 MG TABLET 1 TAB PO DAILY PRN pain Escitalopram Oxalate (Lexapro) 20 MG TABLET 1 TAB PO DAILY MENTAL HEALTH ( Reported) Ezetimibe (Zetia) 10 MG TABLET 1 TAB PO DAILY CHOLESTEROL (Reported) Ibuprofen 800 MG TABLET 1 TAB PO PRN PAIN/INFLAMMATION (Reported) Lamotrigine 150 MG TABLET 1 TAB PO BID BIPOLAR (Reported) Linaclotide (Linzess) 72 MCG CAPSULE 1 CAP PO DAILY GI (Reported) Magnesium Oxide (Magnesium) (Unknown Strength) CAPSULE (Unknown Dose) PO DAILY SUPPLEMENT (Reported) Meloxicam 7.5 MG TABLET 1 TAB PO PRN PAIN/INFLAMMATION (Reported) Metformin HCl 1,000 MG TABLET 1 TAB PO DAILY DM (Reported) Metoclopramide HCl 5 MG TABLET 1 TAB PO PRN GI (Reported) Multiple Vitamin (Multivitamins) 1 EACH TABLET 1 TAB PO DAILY SUPPLEMENT ( Reported) Omeprazole 40 MG CAPSULE.DR 1 CAP PO DAILY ACID REFLUX (Reported) Pravastatin Sodium 20 MG TABLET 1 TAB PO DAILY CHOLESTEROL (Reported) Prednisone (Unknown Strength) TABLET (Unknown Dose) PO AD STEROID TAPER ( Reported) Solifenacin Succinate (Vesicare) 5 MG TABLET 1 TAB PO DAILY INCONTINENCE ( Reported) Suvorexant (Belsomra) 20 MG TABLET 1 TAB PO QPM SLEEP (Reported) Tiotropium Br/Olodaterol HCl (Stiolto Respimat Inhal [place]) 2.5 MCG-2.5 MCG/ ACTUATION MIST.INHAL 1 PUFF INH BID EMPHYSEMA (Reported) Vitamin E Mixed (Vitamin E) (Unknown Strength) TABLET (Unknown Dose) PO DAILY SUPPLEMENT (Reported) Past History Travel History Traveled to [place] past 21 day No Medical History Neurological: NONE EENT: allergies Cardiovascular: hypertension, hyperlipidemia Respiratory: bronchitis, COPD, emphysema, pneumonia Gastrointestinal: constipation Hepatic: NONE Renal: MULTIPLE CYST ON KIDNEYS AIDE UTI Musculoskeletal: NONE Psychiatric: anxiety, bipolar disease, depression Endocrine: diabetes Blood Disorders: NONE 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 self Services at Home: Oxygen Primary Language: [place]ian Living Will? yes Functional Ability ADLs Independent: dressing, eating, toileting, bathing. Ambulation: cane IADLs Independent: shopping, housework, finances, food prep, telephone, medication admin. Needs Assist: transportation. Review of Systems Review of Systems Constitutional: Reports: no symptoms. EENTM: Reports: no symptoms. Cardiovascular: Reports: no symptoms. Respiratory: Reports: short of breath. GI: Reports: no symptoms. Genitourinary: Reports: no symptoms. Musculoskeletal: Reports: no symptoms. Neurological/Psychological: Reports: no symptoms. Exam & Diagnostic Data Last 24 Hrs of Vital Signs/I&O Vital Signs Date Time Temp Pulse Resp B/P B/P Pulse O2 O2 Flow FiO2 Mean Ox Delivery Rate 11/14 1526 Nasal 3.0L Cannula 11/14 1457 95 Nasal 3.0L Cannula 11/14 1453 95.0 121 24 153/68 91 Nasal 3.0L Cannula Physical Exam General Appearance Alert, Oriented X3, Cooperative Skin Temp/Moisture Exam: Warm/Dry HEENT Atraumatic, PERRLA, EOMI Neck Supple Cardiovascular Normal S1, Normal S2 Lungs Decreased breath sounds with crackles b/l Abdomen Soft, No Tenderness Neurological Normal Speech, Strength at 5/5 X4 Ext, Normal Tone, Sensation Intact Extremities No Edema Last 24 Hrs of Labs/Zeus: Laboratory Tests 11/14/17 1603: Anion Gap 16, Estimated GFR > 60, BUN/Creatinine Ratio 28.8 H, Glucose 195 H, Calcium 9.6, Total Bilirubin 0.5, AST 26, ALT 46, Alkaline Phosphatase 116, Troponin I < 0.01, Pyg-C-Sfdhpajfraj Pept 27.6, Total Protein 7.2, Albumin 4.1, Globulin 3.1, Albumin/Globulin Ratio 1.3, CBC w Diff NO MAN DIFF REQ, RBC 4.46, MCV 91.5, MCH 30.3, RDW 13.1, MPV 8.2, Gran % 94.7 H, Lymphocytes % 4.9 L, Monocytes % 0.3 L, Eosinophils % 0.1, Basophils % 0, Absolute Granulocytes 8.4 H, Absolute Lymphocytes 0.4 L, Absolute Monocytes 0 L, Absolute Eosinophils 0, Absolute Basophils 0, PUBS MCHC 33.1 Assessment/Plan Assessment: 67 YO F with PMH of DM, COPD on 3L home O2, HLD, HTN, anxiety, bipolar disorder, multiple renal cysts and UTI came to ED with chief complaint of shortness of breath at rest, the saturation on 3 L of oxygen and increased blood pressure this morning. We'll keep the patient under observation on general medicine floor considering her shortness of breath that could be COPD exacerbation or due to pleural effusion. COPD exacerbation: -Supplemental oxygen to keep the oxygen saturation above 90% patient has baseline 3 L of oxygen. -TRC nebulization as needed -We'll follow the blood and sputum cultures. -We will obtain pulmonary consult if we need in the morning. -IV Solu-Medrol -Chest physiotherapy Right-sided pleural effusion: -Possibly patient has recurrent pleural effusion on the right side considering her last pleural effusion on last admission that was drained. -Patient also having pulmonary congestion on chest x-ray could be due to CHF as her last echo was done in 2011 that showed an ejection fraction 55%. -We will do a chest CT scan. Diabetes mellitus: -We will hold her oral hypoglycemic medication during the hospital stay. -Accu-Cheks -Insulin NovoLog on sliding scale -HbA1c Hypertension and hyperlipidemia: -Patient is not taking any antihypertensive medications. -We will continue her anti-hyperlipidemic medications. Bipolar disorder: -We will continue her home medication including lamotrigine and aripiprazole. DVT prophylaxis: Mechanical and Lovenox CODE STATUS: Full code As Ranked By This Provider Problem List: 1. COPD with exacerbation 2. Pleural effusion Core Measures/Misc (07/21) Acute Coronary Syndrome ACS Diagnosis: No Congestive Heart Failure Congestive Heart Failure Diagnosis No Cerebrovascular Accident CVA/TIA Diagnosis: No VTE (View Protocol) VTE Risk Factors Age>40 No Mechanical VTE Prophylaxis d/t N/A MechProphylax Ordered No VTE Pharm Prophylaxis d/t NA PharmProphylax ordered Sepsis (View protocol) Sepsis Present: No Donato Samuel MD 11/14/172116: Resident Review Statement Resident Statement: examined this patient, discussed with internet project manager Other Findings: This is a 67 yo female with PMH of DM, COPD 3L, HLD, anxiety, bipolar who comes in for CC of SOB. Pt states that after her OT session today she noted increasing SOB. When her home nurse came after OT appt she was told that she was tachycardic, hypertensive and satting 90% on 4L (baseline 3L). She is currently on a second steroid taper since last DC from in Oct 2017. During previous admission she was seen by CT surgery for chest tube for hemothorax likely due to rib fractures (etiology of fracture unknown as pt denied trauma). Denies any recent URI, sorethroat, cough, coryza, CP, HUMMEL,N,V,D, recent travel or sick contacts. Physical exam General Appearance Alert, Oriented X3, Cooperative HEENT Atraumatic, PERRLA, EOMI, on nasal cannula Neck Supple, no JVD Cardiovascular Normal S1, Normal S2, no murmurs or extra heart sounds noted Lungs Diminished air entry in all lung thompson with diffuse crackles. No wheeze or rhonchi Abdomen Soft, No Tenderness Neurological Normal Speech, Strength at 5/5 X4 Ext, Normal Tone, Sensation Intact Extremities No Edema noted ASSESSMENT:This is a 67 yo female with PMH of DM, COPD 3L, HLD, anxiety, bipolar who comes in for CC of SOB. Given worsening SOB, noted tachycardia up to 121, and moderate risk for PE there is concern for pulmonary embolus. PLAN: SOB: pt is desatting, tachycardic and has SOB. DDX includes PE, CHF, COPD. Her cxr shows pulm edema and persistent pleural effusion. There is also c/o worsening hemothorax in this pt. Given negative BNP, no LE edema, no S3 or orthopnea does not sound like CHF. She does not have any wheezing to auscultation and is on 40mg prednisone. Afebrile without white count. No new infiltrates in cxr suggesting against PNA. Echo from 2012 showed EF 55% and mild atrial dilation. EKG showed NSR with regular rate. * CT PE STAT * TRC * O2 * Pulm consult in AM * 40mg of steroid and re-assess need for taper tomorrow. Anxiety/Bipolar: * Con't ability * Con't lexapro * Con't Lamictal DM: * RISS * Sliding scale * Diabetic diet Dio FREEDMAN, [facility] 11/14/17 1409: Attending MD Review Statement Attending Statement Attending MD Statement: examined this patient, discuss w/resident/PA/NET DEVELOPER, agreed w/resident/PA/NET DEVELOPER, reviewed images, amended to note Attending Assessment/Plan: 67 yo F smoker with chronic hypoxic respiratory failure, COPD on 3L O2, T2DM, anxiety, BPD, recently admitted (10/23 10/31) for right sided hemothorax 2/2 spontaneous rib fractures requiring chest tube placement, COPDE and CAP treated with Augmentin, is brought in from home for worsening dyspnea and hypoxia (high 80's). Patient was working with occupational therapist at home, when she suddenly became short of breath, was tachycardic and hypertensive, sats were in high 80's low 90's on 3-4 L. She completed her prednisone taper but did not feel better so her PCP prescribed her another taper. She is currently on 40 mg daily. She denies productive cough or fever/ chills. According to ER notes, the therapist/ visiting nurse was concerned about patient 's ability to care for self at home. Vitals: afebrile, tachycardic to 100-110's, BP 130/70, sats 92-94% on 3L. Exam: AAO, in mild distress, reports feeling exertional SOB, MMM, Neck supple, Chest b /l scattered crackles, air entry is good, no wheeze. Heart S1S2 regular, LE: trace edema. Labs: no leukocytosis, BUN 23, proBNP is low, trop is neg. CXR: suspect mild pulmonary edema difficult to evaluate due to underlying pulmonary changes, persistent small right pleural effusion and bibasilar opacities with improvement at left base. EKG: Sinus tachycardia, LAFB, LVH. Echo (2012): EF 55%. Assessment and plan: 1. Acute on chronic hypoxic respiratory failure 2. Worsening dyspnea in this patient with underlying severe COPD 3. Rule out PE given hypoxia and tachycardia 4. Physical deconditioning - 23 hour observation on general medicine - TR nebs and incentive spirometry - No evidence of COPD exacerbation or pulmonary edema. - CTA chest done emphysema, no PE, small right pleural effusion with atelectasis. - Continure prednisone but will do a slow taper, no need for IV steroids - Consult Pulm (Dr. Corona) - PT eval - Smoking cessation counseling DVT ppx Lovenox. Full code. Observation Initial Note - I have personally examined JOSEPH DEVRIES on 11/14/17 at 2258. The disposition of JOSEPH DEVRIES is uncertain at this time and before a determination can be made, she requires a period of observation for the following reasons [hypoxia, dyspnea]
[2017-11-14] MEDS ORDERED: LINZESS72 MCG PO (17:37)
[2017-11-14] MEDS ORDERED: MAGNESIUM400 M1 PO (17:39)
[2017-11-14] MEDS ORDERED: MULTIVITAMINS1 EAC9 PO (17:39)
[2017-11-14] MEDS ORDERED: BIOTIN5 M1 PO (17:39)
[2017-11-14] MEDS ORDERED: ALBUTEROL2.5 MG/3 M INH/SOL (17:40)
[2017-11-14] MEDS ORDERED: VITAMIN E100 UNI2 PO (17:40)
[2017-11-14] MEDS ORDERED: PREDNISONE10 M2 PO (17:42)
[2017-11-14 20:22] VITALS: BP 122/70
[2017-11-14 21:54] VITALS: BP 130/70
--- NOTE | 2017-11-14 22:59 | CT SCAN REPORT ---
EXAMINATION: CT ANGIOGRAM OF THE CHEST WITH AND WITHOUT CONTRAST (CT PULMONARY ANGIOGRAM FOR PE) CLINICAL INFORMATION: Shortness of breath tachypnea evaluate for pulmonary embolism. COMPARISON: Chest x-ray performed same day. Prior CT October 2017 and September 2017 TECHNIQUE: Prior to contrast administration, noncontrast localization images were obtained. Subsequently, multidetector volumetric imaging was performed from the thoracic inlet to below the diaphragms following the administration of 95 mL Optiray 350 intravenous contrast. No contrast reaction reported. Sagittal, coronal, and MIP oblique sagittal reformatted images were obtained on the CT workstation, uploaded to PACS, and reviewed. Total exam dose-length product . 544 mGy-cm. FINDINGS: QUALITY OF STUDY/CONTRAST BOLUS: Satisfactory PULMONARY ARTERIES: No central or segmental pulmonary emboli. THORACIC AORTA: Moderate arterial calcification. No aneurysm or dissection. LUNG and Pleura: There is generalized emphysema unchanged There is a small right pleural effusion. There is some opacity in the right lower lobe abutting the pleural effusion. This could reflect compressive atelectasis. Infiltrate cannot be entirely excluded. Similar opacity noted on the prior exam. Minimal patchy opacity at the left base left lower lobe compatible with atelectasis similar compared to prior. There is linear opacity in the lingula unchanged compatible scarring and/or atelectasis. MEDIASTINUM: Normal heart side no pericardial effusion. Arterial calcification of the aorta and coronary vessels. No significant lymphadenopathy. No evidence of septal bowing or right heart strain. CHEST WALL/AXILLA: No axillary or internal mammary lymphadenopathy. OSSEOUS STRUCTURES: Multilevel spondylosis of the dorsal spine UPPER ABDOMEN: 1.5 cm renal cyst present in the upper pole right kidney unchanged. Atherosclerotic changes of the abdominal aorta. IMPRESSION: No evidence for pulmonary embolism Emphysema. Small right pleural effusion. Right basilar opacity unchanged likely reflecting atelectasis and/or scarring. Infiltrate cannot be excluded but there is been no change since the prior examinations in September and October 2017 Minimal patchy left base compatible with atelectasis similar to prior.
[2017-11-15 06:38] VITALS: BP 124/62
--- NOTE | 2017-11-15 06:59 | PN- Housestaff ---
[facility] Subjective Follow-up For: Acute on chronic hypoxic respiratory failure. Pleural effusion Subjective: No overnight events. Patient remained afebrile overnight. Seen and examined this morning. She was lying in bed comfortably using 3 L of oxygen and maintaining saturation 95%. Patient denied any chest pain, short of breath at rest, palpitation, nausea, vomiting, chills, fever, abdominal pain and dysuria. Patient less likely has COPD exacerbation. She already on tapering dose of prednisone we will slowly taper her prednisone. This time patient wants to go to short-term rehabilitation we will talk to upper caser about it. Review of Systems Constitutional: Reports: no symptoms. EENTM: Reports: no symptoms. Cardiovascular: Reports: no symptoms. Respiratory: Reports: no symptoms. Gastrointestinal: Reports: no symptoms. Genitourinary: Reports: no symptoms. Musculoskeletal: Reports: no symptoms. Neurological/Psychological: Reports: no symptoms. Objective Last 24 Hrs of Vital Signs/I&O Vital Signs Date Time Temp Pulse Resp B/P B/P Pulse O2 O2 Flow FiO2 Mean Ox Delivery Rate 11/15 0800 94 Nasal 3.0L Cannula 11/15 0638 98.1 98 20 124/62 95 Nasal Cannula 11/144 98.6 106 20 130/70 92 Nasal 3.0L Cannula 11/14 2122 Nasal 3.0L Cannula 11/14 2035 92 Nasal 3.0L Cannula 11/14 2021 97.6 113 20 122/70 92 Nasal 3.0L Cannula 11/14 1922 98.6 113 20 121/69 94 Nasal 3.0L Cannula 11/14 1526 Nasal 3.0L Cannula 11/14 1457 95 Nasal 3.0L Cannula 11/14 1453 95.0 121 24 153/68 91 Nasal 3.0L Cannula Intake & Output 11/15 1600 11/15 0800 11/15 0000 Intake Total 300 480 Output Total Balance 300 480 Intake, Oral 300 480 Number 0 Bowel Movements Patient 200 lb Weight Physical Exam General Appearance: Alert, Oriented X3, Cooperative, No Acute Distress Skin Temp/Moisture Exam: Warm/Dry HEENT: Atraumatic, PERRLA, EOMI Neck: Supple Cardiovascular: Normal S1, Normal S2 Lungs: Decreased breath sounds b/l. Abdomen: Soft, No Tenderness Neurological: Normal Speech, Strength at 5/5 X4 Ext, Normal Tone, Sensation Intact Extremities: No Edema Assessment/Plan Assessment: 67 YO F with PMH of DM, COPD on 3L home O2, HLD, HTN, anxiety, bipolar disorder, multiple renal cysts and UTI came to ED with chief complaint of shortness of breath at rest, the saturation on 3 L of oxygen and increased blood pressure this morning. We'll keep the patient under observation on general medicine floor. Acute on chronic hypoxic respiratory failure: -Supplemental oxygen to keep the oxygen saturation above 90% patient has baseline 3 L of oxygen. -No wheezing in the chest and less likely copd exacerbation. -TRC nebulization as needed -We'll follow the blood and sputum cultures. -We will taper prednisone slowly. -incentive spirometry -Chest physiotherapy -CTA was done that ruled out PE. -We will obtain pulmonary consult today. Right-sided pleural effusion: -Possibly patient has recurrent pleural effusion on the right side considering her last pleural effusion on last admission that was drained. -Patient also having pulmonary congestion on chest x-ray could be due to CHF as her last echo was done in 2011 that showed an ejection fraction 55%. Diabetes mellitus: -We will hold her oral hypoglycemic medication during the hospital stay. -Accu-Cheks -Insulin NovoLog on sliding scale -HbA1c Hypertension and hyperlipidemia: -Patient is not taking any antihypertensive medications. -We will continue her anti-hyperlipidemic medications. Bipolar disorder: -We will continue her home medication including lamotrigine and aripiprazole. DVT prophylaxis: Mechanical and Lovenox CODE STATUS: Full code Problem List: 1. Acute and chronic respiratory failure with hypoxia 2. Pleural effusion Pain Ratin Pain Location: NONE Pain Goal: Remain pain free Pain Plan: TYLENOL FOR MILD PAIN Tomorrow's Labs & Rationales: Jaqui Townsend MD 11/15/17 1137: Attending MD Review Statement Attending Statement Attending MD Statement: examined this patient, discuss w/resident/PA/MARKETING EFFECTIVENESS MANAGER, agreed w/resident/PA/MARKETING EFFECTIVENESS MANAGER, reviewed EMR data (avail) Attending Assessment/Plan: 67F PMH chronic hypoxic respiratory failure, COPD on 3L O2, T2DM, anxiety, BPD, recently admitted (10/23 10/31) for right sided hemothorax 2/2 spontaneous rib fractures requiring chest tube placement, recently treated with Prednisone for COPD exacerbation, returns after becoming short of breath and hypoxic at home. Patient feels well at rest and with oxygen, but becomes immediately short of breath when oxygen is turned down or when she exerts herself. She is comfortable and speaking in full sentences though at this time, requiring 4L NC, with bilateral wheezing on exam. Afebrile, labs normal, CXR shows unchanged small right sided pleural effusion. 1. COPD exacerbation 2. Acute on chronic hypoxemic respiratory failure 3. Dyspnea on exertion Plan - Observation in general medicine - Increase Prednisone to 60mg, taper from there - Pulmonary consult - Nebulizer treatments - Sputum culture - Continue home medications - DVT PPx - Anticipated discharge tomorrow if breathing improves
[2017-11-15 09:36] LABS: ABSOLUTE BASOPHIL COUNT 0 /CUMM (0.0-0.2); ABSOLUTE EOSINOPHIL COUNT 0 /CUMM (0.0-0.7); ABSOLUTE GRANULOCYTE CT 8.9 /CUMM (1.4-6.5); ABSOLUTE LYMPH COUNT 0.6 /CUMM (1.2-3.4); ABSOLUTE MONOCYTE COUNT 0.1 /CUMM (0.10-0.60); BASOPHIL % 0 % (0.0-2.0); EOSINOPHIL % 0.1 % (0-5); HEMATOCRIT 37.9 % (37-47); MEAN CORPUSCULAR HGB 30.1 PG (27.0-31.0); MEAN CORPUSCULAR HGB CONC 32.9 G/DL (33.0-37.0); MEAN CORPUSCULAR VOLUME 91.3 FL (81.0-99.0); MEAN PLATELET VOLUME 8.6 FL (7.4-10.4); PLATELET COUNT 262 /CUMM (130-400); RBC DISTRIBUTION WIDTH 13.5 % (11.5-14.5); RED BLOOD CELL CT 4.16 /CUMM (4.20-5.40); WHITE BLOOD CELL COUNT 9.6 /CUMM (4.8-10.8)
[2017-11-15 10:44] LABS: GRANULOCYTE % 92.5 % (42.2-75.2)
[2017-11-15 14:57] VITALS: BP 142/76
--- NOTE | 2017-11-15 18:07 | Cons- Pulmonary ---
General Information and HPI Consulting Request Date of Consult: 11/15/17 Requested By: Med team History of Present Illness: 67 YO F with PMH of DM, COPD on 3L home O2, HLD, HTN, anxiety, bipolar disorder, multiple renal cysts and UTI came to ED with chief complaint of shortness of breath at rest, the saturation on 3 L of oxygen and increased blood pressure this morning. Patient reported that she was in her usual state of health and getting occupational therapy this morning when she started to have short of breath at rest and she increased her home oxygen from 3 L to 4 L but she was still having short of breath and also she desaturated to 90% on 4 L with increase in blood pressure than the occupational therapist called to our primary care physician who advised her to go to ED. Patient reported that exertional dyspnea is her baseline even on 3 L of oxygen but at rest she never had short of breath. She also endorsed that for last 1 week she's not feeling well and having progressively increased short of breath at this morning it was severe. Patient reported that she is not taking any medication for her blood pressure. She denied any chest pain, palpitation, chills, fever, nausea, vomiting, dizziness, loss of consciousness, hematemesis, abdominal pain and dysuria. Patient was admitted last time October 2017 when she came in with shortness of breath and found to have pneumonia that exacerbate the COPD and on CT scan chest found to have fractured triple with hemothorax. On last admission thoracentesis was done with chest tube intubation and 850 mL blood was removed. Last echocardiogram was done on 11/09/2011 that is showing ejection fraction 55% ED course: Vitals: Temperature 95.0, pulse 121, respiratory rate 24, BP 153/68, oxygen saturation 91% on room air. Labs: WBC count 8.9, hemoglobin 13.5, hematocrit 40.8, platelet count 295, sodium 144, potassium 4.5, anion gap 16, BUN 23, creatinine 0.8, BUN/creatinine ratio 28.8, glucose 195, calcium 9.6, AST 26, ALT 46 Allergies/Medications Allergies: Coded Allergies: Penicillins (RASH 10/10/17) azithromycin (From ZITHROMAX Z-ERNESTINA) (RASH 10/10/17) ciprofloxacin (From CIPRO HC) (FACIAL SWELLING, HIVES 10/10/17) clarithromycin (From BIAXIN) (RASH 10/10/17) hydrocortisone (From CIPRO HC) (FACIAL SWELLING 01/21/16) levofloxacin (From LEVAQUIN) (RASH 10/10/17) meperidine (From DEMEROL) (UNKNOWN PER PT 10/10/17) rofecoxib (From VIOXX) (RASH 10/10/17) Home Med List: Albuterol Sulfate 2.5 MG/3 ML (0.083 %) VIAL.NEB 1 Vial INH/NEHAL 4XDAILY RESP. (Reported) Aripiprazole (Abilify) 15 MG TABLET 1 TAB PO DAILY MENTAL HEALTH (Reported) Biotin (Unknown Strength) CAPSULE (Unknown Dose) PO DAILY SUPPLEMENT ( Reported) Cyclobenzaprine HCl 10 MG TABLET 1 TAB PO DAILY PRN pain Escitalopram Oxalate (Lexapro) 20 MG TABLET 1 TAB PO DAILY MENTAL HEALTH ( Reported) Ezetimibe (Zetia) 10 MG TABLET 1 TAB PO DAILY CHOLESTEROL (Reported) Ibuprofen 800 MG TABLET 1 TAB PO PRN PAIN/INFLAMMATION (Reported) Lamotrigine 150 MG TABLET 1 TAB PO BID BIPOLAR (Reported) Linaclotide (Linzess) 72 MCG CAPSULE 1 CAP PO DAILY GI (Reported) Magnesium Oxide (Magnesium) (Unknown Strength) CAPSULE (Unknown Dose) PO DAILY SUPPLEMENT (Reported) Meloxicam 7.5 MG TABLET 1 TAB PO PRN PAIN/INFLAMMATION (Reported) Metformin HCl 1,000 MG TABLET 1 TAB PO DAILY DM (Reported) Metoclopramide HCl 5 MG TABLET 1 TAB PO PRN GI (Reported) Multiple Vitamin (Multivitamins) 1 EACH TABLET 1 TAB PO DAILY SUPPLEMENT ( Reported) Omeprazole 40 MG CAPSULE.DR 1 CAP PO DAILY ACID REFLUX (Reported) Pravastatin Sodium 20 MG TABLET 1 TAB PO DAILY CHOLESTEROL (Reported) Prednisone (Unknown Strength) TABLET (Unknown Dose) PO AD STEROID TAPER ( Reported) Solifenacin Succinate (Vesicare) 5 MG TABLET 1 TAB PO DAILY INCONTINENCE ( Reported) Suvorexant (Belsomra) 20 MG TABLET 1 TAB PO QPM SLEEP (Reported) Tiotropium Br/Olodaterol HCl (Stiolto Respimat Inhal [place]) 2.5 MCG-2.5 MCG/ ACTUATION MIST.INHAL 1 PUFF INH BID EMPHYSEMA (Reported) Vitamin E Mixed (Vitamin E) (Unknown Strength) TABLET (Unknown Dose) PO DAILY SUPPLEMENT (Reported) Review of Systems Review of Systems Constitutional: Reports: see HPI. Comments Review of Systems Constitutional: Reports: no symptoms. EENTM: Reports: no symptoms. Cardiovascular: Reports: no symptoms. Respiratory: Reports: short of breath. GI: Reports: no symptoms. Genitourinary: Reports: no symptoms. Musculoskeletal: Reports: no symptoms. 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 self Services at Home: Oxygen Primary Language: Sami Smoking Status: Former Smoker Living Will? yes Functional Ability ADLs Independent: dressing, eating, toileting, bathing. Ambulation: cane IADLs Independent: shopping, housework, finances, food prep, telephone, medication admin. Needs Assist: transportation. Exam & Diagnostic Data Last 24 Hrs of Vital Signs/I&O Vital Signs Date Time Temp Pulse Resp B/P B/P Pulse O2 O2 Flow FiO2 Mean Ox Delivery Rate 11/15 1640 94 Nasal 3.0L Cannula 11/15 1457 98.1 97 20 142/76 91 Nasal 3.0L Cannula 11/15 899 93 Nasal 3.0L Cannula 11/15 08 94 Nasal 3.0L Cannula 11/15 0638 98.1 98 20 124/62 95 Nasal Cannula 11/14 2153 98.6 106 20 130/70 92 Nasal 3.0L Cannula 11/14 2122 Nasal 3.0L Cannula 11/14 2035 92 Nasal 3.0L Cannula 11/14 2021 97.6 113 20 122/70 92 Nasal 3.0L Cannula 11/14 1921 98.6 113 20 121/69 94 Nasal 3.0L Cannula Intake & Output 11/15 1600 11/15 0800 11/15 0000 Intake Total 1000 300 480 Output Total Balance 1000 300 480 Intake, Oral 1000 300 480 Number 0 Bowel Movements Patient 200 lb Weight Last 48 Hrs of Labs/Zeus: Laboratory Tests 11/15/17 0805: Anion Gap 14, Estimated GFR > 60, BUN/Creatinine Ratio 30.0 H, CBC w Diff NO MAN DIFF REQ, RBC 4.16 L, MCV 91.3, MCH 30.1, RDW 13.5, MPV 8.6, Gran % 92.5 H , Lymphocytes % 6.4 L, Monocytes % 1.0 L, Eosinophils % 0.1, Basophils % 0, Absolute Granulocytes 8.9 H, Absolute Lymphocytes 0.6 L, Absolute Monocytes 0.1, Absolute Eosinophils 0, Absolute Basophils 0, PUBS MCHC 32.9 L 11/14/17 1603: Anion Gap 16, Estimated GFR > 60, BUN/Creatinine Ratio 28.8 H, Glucose 195 H, Calcium 9.6, Total Bilirubin 0.5, AST 26, ALT 46, Alkaline Phosphatase 116, Troponin I < 0.01, Ipg-D-Uvefdepstjy Pept 27.6, Total Protein 7.2, Albumin 4.1, Globulin 3.1, Albumin/Globulin Ratio 1.3, CBC w Diff NO MAN DIFF REQ, RBC 4.46, MCV 91.5, MCH 30.3, RDW 13.1, MPV 8.2, Gran % 94.7 H, Lymphocytes % 4.9 L, Monocytes % 0.3 L, Eosinophils % 0.1, Basophils % 0, Absolute Granulocytes 8.4 H, Absolute Lymphocytes 0.4 L, Absolute Monocytes 0 L, Absolute Eosinophils 0, Absolute Basophils 0, PUBS MCHC 33.1 Assessment/Plan Impression/Plan: CT chest IMPRESSION: No evidence for pulmonary embolism Emphysema. Small right pleural effusion. Right basilar opacity unchanged likely reflecting atelectasis and/or scarring. Infiltrate cannot be excluded but there is been no change since the prior examinations in September and October 2017 Minimal patchy left base compatible with atelectasis similar to prior. General Appearance Alert, Oriented X3, Cooperative Skin Temp/Moisture Exam: Warm/Dry HEENT Atraumatic, PERRLA, EOMI Neck Supple Cardiovascular Normal S1, Normal S2 Lungs Decreased breath sounds with crackles b/l Abdomen Soft, No Tenderness Neurological Normal Speech, Strength at 5/5 X4 Ext, Normal Tone, Sensation Intact Extremities No Edema SIGNIFICANT DATA cultures were unremarkable body fluid culture which was done on October 27 was unremarkable Pleural fluid analysis done from October did show that she had significant number of RBCs with 7800 WBC with 21% lymphocytes 3% eosinophils 39% mesothelial cells. Her cytology at that time was unremarkable Pleural fluid chemistry did reveal that she had the high protein, high LDH. And her pleural fluid pH was 7.21. IMPRESSION This is a 67-year-old lady with the history of moderate to severe COPD, ongoing cigarette smoking, history of hypertension, hyperlipidemia, chronic constipation , multiple cysts on the kidney, bipolar disorder, depression, previous abnormal Pap smear, recent admission to [facility] for COPD exacerbation with what appears to be an atraumatic hemothorax with previous drainage with no clinical evidence suggestive of empyema at that time, now comes in with * Significant COPD with ongoing smoking with mild COPD exacerbation * Recent hemothorax with multiple rib fractures status post drainage with minimal right pleural effusion with underlying atelectasis. No clinical evidence suggestive of significant pneumonia * Significant emphysema noted in the CT scan with ongoing smoking * Bipolar disorder with ongoing psychiatric care which is compounding the issue * Probable significant osteoporosis severe COPD with previous steroid use * Significant nicotine dependence * Diabetes, hypertension, previous UTI and other multiple issues seems to be relatively stable RECOMMENDATION * Continue present therapy * Nebulizer treatment as ordered * By mouth prednisone taper * No clinical indication for any antibiotics * Patient needs serial follow-up x-rays in the future to evaluate for resolution of her previous hemothorax * Sputum culture if any * Continue to monitor her sugar due to a prednisone * Patient is relatively stable probably can be discharged soon Consult Acknowledgment - Thank you for your consult request.
[2017-11-15 22:34] VITALS: BP 135/73
[2017-11-16 06:15] VITALS: BP 142/84
[2017-11-16 09:05] LABS: ABSOLUTE BASOPHIL COUNT 0 /CUMM (0.0-0.2); ABSOLUTE EOSINOPHIL COUNT 0 /CUMM (0.0-0.7); ABSOLUTE GRANULOCYTE CT 8.2 /CUMM (1.4-6.5); ABSOLUTE LYMPH COUNT 1.4 /CUMM (1.2-3.4); ABSOLUTE MONOCYTE COUNT 0.7 /CUMM (0.10-0.60); BASOPHIL % 0.2 % (0.0-2.0); EOSINOPHIL % 0.2 % (0-5); HEMATOCRIT 36.9 % (37-47); MEAN CORPUSCULAR HGB 30.7 PG (27.0-31.0); MEAN CORPUSCULAR HGB CONC 33.5 G/DL (33.0-37.0); MEAN CORPUSCULAR VOLUME 91.6 FL (81.0-99.0); MEAN PLATELET VOLUME 8.4 FL (7.4-10.4); PLATELET COUNT 274 /CUMM (130-400); RBC DISTRIBUTION WIDTH 13.4 % (11.5-14.5); RED BLOOD CELL CT 4.03 /CUMM (4.20-5.40); WHITE BLOOD CELL COUNT 10.4 /CUMM (4.8-10.8)
--- NOTE | 2017-11-16 09:11 | PN-Observation ---
Emily FREEDMAN,Tereza 11/16/17 0911: Observation Note Observation Note _ I have personally examined JOSEPH DEVRIES. her disposition is uncertain at this time. Before a determination can be made, she requires continued observation for the following reasons []. Assessment/Plan Assessment: 67 YO F with PMH of DM, COPD on 3L home O2, HLD, HTN, anxiety, bipolar disorder, multiple renal cysts and UTI came to ED with chief complaint of shortness of breath at rest, the saturation on 3 L of oxygen and increased blood pressure this morning. We'll keep the patient under observation on general medicine floor. Acute on chronic hypoxic respiratory failure: Secondary to his COPD with ongoing smoking -Supplemental oxygen to keep the oxygen saturation above 90% patient has baseline 3 L of oxygen. -No wheezing in the chest and less likely copd exacerbation. -TRC nebulization as needed -We'll follow the blood and sputum cultures. -We will taper prednisone slowly. And will need serial x-ray follow-up in the future to follow-up on her previous hemothorax -incentive spirometry -Chest physiotherapy -CTA was done that ruled out PE. Follow-up on pulmonary recommendation Right-sided pleural effusion: -Possibly patient has recurrent pleural effusion on the right side considering her last pleural effusion on last admission that was drained. -Patient also having pulmonary congestion on chest x-ray could be due to CHF as her last echo was done in 2011 that showed an ejection fraction 55%. Diabetes mellitus: fsg 206 -We will hold her oral hypoglycemic medication during the hospital stay. -Accu-Cheks -Insulin NovoLog on sliding scale -HbA1c Hypertension and hyperlipidemia: -Patient is not taking any antihypertensive medications. -We will continue her anti-hyperlipidemic medications. Bipolar disorder: -We will continue her home medication including lamotrigine and aripiprazole. DVT prophylaxis: Mechanical and Lovenox CODE STATUS: Full code Problem List: 1. COPD with exacerbation 2. Acute and chronic respiratory failure with hypoxia DVT/Prophylaxis: mechanical, pharmacological Subjective Follow-up For: Acute on chronic hypoxic respiratory failure. Pleural effusion Subjective: Patient is seen and examined at bedside, she complains of cough him a wheezes and shortness of breath overnight, still on 3 L nasal oxygen, also complains of constipation, feels uncomfortable being discharged today because of the symptoms , denies fever, chills, nausea or vomiting or chest pain Review of Systems Constitutional: Denies: no symptoms. Cardiovascular: Denies: no symptoms. Respiratory: Reports: cough, short of breath, sputum production, wheezing. Gastrointestinal: Denies: no symptoms. Objective Last 24 Hrs of Vital Signs/I&O Vital Signs Date Time Temp Pulse Resp B/P B/P Pulse O2 O2 Flow FiO2 Mean Ox Delivery Rate 11/16 0905 95 Nasal 3.0L Cannula 11/16 0800 93 Nasal 3.0L Cannula 11/16 0615 98.6 91 20 142/84 92 11/16 0234 95 Nasal 3.0L Cannula 11/16 0000 Nasal 3.0L Cannula 11/15 2234 98.4 104 20 135/73 95 Nasal 3.0L Cannula 11/15 1640 94 Nasal 3.0L Cannula 11/15 1600 94 Nasal 3.0L Cannula 11/15 1457 98.1 97 20 142/76 91 Nasal 3.0L Cannula Physical Exam General Appearance: Alert, Oriented X3, Cooperative, No Acute Distress Skin: No Rashes, No Breakdown, No Significant Lesion HEENT: Atraumatic, PERRLA, EOMI, Mucous Membr. moist/pink Cardiovascular: Normal S1, Normal S2, No Murmurs Lungs: wheezes and rales Abdomen: Normal Bowel Sounds, Soft, No Tenderness Extremities: No Clubbing, No Cyanosis, No Edema Vascular: Normal Pulses, Pulses Symmetrical Connor FREEDMAN,kyrie 11/16/17 1547: Addendum Addendum 67F PMH chronic hypoxic respiratory failure, COPD on 3L O2, T2DM, anxiety, BPD, recently admitted (10/23 10/31) for right sided hemothorax 2/2 spontaneous rib fractures requiring chest tube placement, recently treated with Prednisone for COPD exacerbation, returns after becoming short of breath and hypoxic at home. Improved today, wheezing improved, still dyspneic with exertion but this is also better. 1. COPD exacerbation 2. Acute on chronic hypoxemic respiratory failure 3. Dyspnea on exertion Plan - Stable for discharge home - Prednisone taper - Outpatient pulmonary follow up - Continue home medications - Will continue home physical/occupational therapy
--- NOTE | 2017-11-16 13:13 | PN- Pulmonary ---
Subjective HPI/Critical Care Issues: Doing well stable Mild chest wall pain from coughing, she complains of cough him a wheezes and shortness of breath overnight, still on 3 L nasal oxygen, also complains of constipation, feels uncomfortable being discharged today because of the symptoms , denies fever, chills, nausea or vomiting or chest pain Review of Systems Constitutional: Denies: no symptoms. Cardiovascular: Denies: no symptoms. Respiratory: Reports: cough, short of breath, sputum production, wheezing. Gastrointestinal: Denies: no symptoms. Objective Current Medications: Current Medications Sig/Laura Start time Last Medication Dose Route Stop Time Status Admin Acetaminophen 650 MG Q6P PRN 11/14 1929 AC PO Acetaminophen 1,000 MG Q6P PRN 11/14 1929 AC IV Albuterol Sulfate 3 ML EVERY 4 HRS/AWAKE 11/15 0800 AC 11/16 INH 0902 Alprazolam 0.25 MG ONCE ONE 11/15 2200 DC 11/15 PO 11/15 2201 2154 Aripiprazole 15 MG DAILY 11/14 2014 AC 11/16 PO 0853 Calcium Carbonate 500 MG ONCE ONE 11/15 1330 DC 11/15 PO 11/15 1331 1337 Enoxaparin Sodium 40 MG 2200 11/15 2200 AC 11/15 [place] 2119 Escitalopram Oxalate 20 MG DAILY 11/15 1000 AC 11/16 PO 0853 Ezetimibe 10 MG DAILY 11/15 1000 AC 11/16 PO 0854 Insulin Aspart 0 TIDAC 11/15 0800 AC 11/15 [place] 1707 Lamotrigine 150 MG BID 11/14 2200 AC 11/16 PO 0854 Melatonin 3 MG AT BEDTIME 11/14 2330 AC PO Metoclopramide HCl 5 MG DAILY PRN 11/14 2030 AC PO Omeprazole 40 MG DAILY AC 11/15 0700 AC 11/16 PO 0512 Oxybutynin Chloride 5 MG DAILY 11/15 1000 AC 11/16 PO 0855 Oxycodone/ 2 TAB Q6P PRN 11/14 1930 AC 11/16 Acetaminophen PO 0900 Polyethylene Glycol 17 GM DAILY 11/16 1000 AC 11/16 PO 1143 Pravastatin Sodium 20 MG DAILY 11/15 1000 AC 11/16 PO 0854 Prednisone 10 MG DAILY 11/30 1000 AC PO 12/02 1001 Prednisone 20 MG DAILY 11/27 1000 AC PO 11/29 1001 Prednisone 30 MG DAILY 11/24 1000 AC PO 11/26 1001 Prednisone 40 MG DAILY 11/21 1000 AC PO 11/23 1001 Prednisone 50 MG DAILY 11/18 1000 AC PO 11/20 1001 Prednisone 60 MG DAILY 11/16 1000 CAN PO 12/03 0959 Prednisone 60 MG DAILY 11/16 1000 AC 11/16 PO 11/17 1001 0854 Vital Signs & I&O Last 24 Hrs of Vitals and I&O: Vital Signs Date Time Temp Pulse Resp B/P B/P Pulse O2 O2 Flow FiO2 Mean Ox Delivery Rate 11/16 0905 95 Nasal 3.0L Cannula 11/16 0800 93 Nasal 3.0L Cannula 11/16 0615 98.6 91 20 142/84 92 11/16 0234 95 Nasal 3.0L Cannula 11/16 0000 Nasal 3.0L Cannula 11/15 2234 98.4 104 20 135/73 95 Nasal 3.0L Cannula 11/15 1640 94 Nasal 3.0L Cannula 11/15 1600 94 Nasal 3.0L Cannula 11/15 1457 98.1 97 20 142/76 91 Nasal 3.0L Cannula Impression/Plan Impression/Plan Impression/Plan: CT chest IMPRESSION: No evidence for pulmonary embolism Emphysema. Small right pleural effusion. Right basilar opacity unchanged likely reflecting atelectasis and/or scarring. Infiltrate cannot be excluded but there is been no change since the prior examinations in September and October 2017 Minimal patchy left base compatible with atelectasis similar to prior. General Appearance Alert, Oriented X3, Cooperative Skin Temp/Moisture Exam: Warm/Dry HEENT Atraumatic, PERRLA, EOMI Neck Supple Cardiovascular Normal S1, Normal S2 Lungs Decreased breath sounds with crackles b/l Abdomen Soft, No Tenderness Neurological Normal Speech, Strength at 5/5 X4 Ext, Normal Tone, Sensation Intact Extremities No Edema SIGNIFICANT DATA cultures were unremarkable body fluid culture which was done on October 27 was unremarkable Pleural fluid analysis done from October did show that she had significant number of RBCs with 7800 WBC with 21% lymphocytes 3% eosinophils 39% mesothelial cells. Her cytology at that time was unremarkable Pleural fluid chemistry did reveal that she had the high protein, high LDH. And her pleural fluid pH was 7.21. IMPRESSION This is a 67-year-old lady with the history of moderate to severe COPD, ongoing cigarette smoking, history of hypertension, hyperlipidemia, chronic constipation , multiple cysts on the kidney, bipolar disorder, depression, previous abnormal Pap smear, recent admission to [facility] for COPD exacerbation with what appears to be an atraumatic hemothorax with previous drainage with no clinical evidence suggestive of empyema at that time, now comes in with * Significant COPD with ongoing smoking with mild COPD exacerbation better, now with mild chest wall pain from coughing * Recent hemothorax with multiple rib fractures status post drainage with minimal right pleural effusion with underlying atelectasis. No clinical evidence suggestive of significant pneumonia * Significant emphysema noted in the CT scan with ongoing smoking * Bipolar disorder with ongoing psychiatric care which is compounding the issue * Probable significant osteoporosis severe COPD with previous steroid use * Significant nicotine dependence * Diabetes, hypertension, previous UTI and other multiple issues seems to be relatively stable RECOMMENDATION * Continue present therapy * Nebulizer treatment as ordered * By mouth prednisone taper * No clinical indication for any antibiotics * Patient needs serial follow-up x-rays in the future to evaluate for resolution of her previous hemothorax * Sputum culture if any * Continue to monitor her sugar due to a prednisone * Patient is relatively stable probably can be discharged soon
[2017-11-16] MEDS ORDERED: PERCOCET 5-3251 EACH PO ×2 (14:17→15:25)
[2017-11-16] MEDS ORDERED: PREDNISONE10 M2 PO ×3 (14:17→16:18)
--- NOTE | 2017-11-16 14:23 | Patient Discharge Instructions ---
Discharge Instructions General Discharge Information You were seen/treated for: Significant COPD Special Instructions: F/U with PCP in 1 week f/u with verification rep in 1 week Diet Continue normal diet: Yes Activity Full Activity/No Limits: Yes Acute Coronary Syndrome Inclusion Criteria At DC or during hospital stay patient has or had the following: ACS DIAGNOSIS No Discharge Core Measures Meds if any: Prescribed or Continued at Discharge Meds if any: NOT Prescribed or Continued at Discharge Congestive Heart Failure Inclusion Criteria At DC or during hospital stay patient has or had the following: CHF DIAGNOSIS No Discharge Core Measures Meds if any: Prescribed or Continued at Discharge Meds if any: NOT Prescribed or Continued at Discharge Cerebrovascular accident Inclusion Criteria At DC or during hospital stay patient has or had the following: CVA/TIA Diagnosis No Discharge Core Measures Meds if any: Prescribed or Continued at Discharge Meds if any: NOT Prescribed or Continued at Discharge Venous thromboembolism Inclusion Criteria VTE Diagnosis No VTE Type NONE VTE Confirmed by (Test) NONE Discharge Core Measures - Per Current guidelines, there needs to be overlap - treatment for the first 5 days of Warfarin therapy. - If discharged on Warfarin prior to 5 days of - overlap therapy, the patient will need to be - assessed for post discharge needs including - *Post discharge parental anticoagulation - *Warfarin and/or parental anticoagulation education - *Follow up date to check INR post discharge At least 5 days overlap therapy as Inpatient No Meds if any: Prescribed or Continued at Discharge Note: Overlap Therapy is Warfarin and Anticoagulant Meds if any: NOT Prescribed or Continued at Discharge
== END 2017-11-16 16:44 | disposition home health service (06) ==
LOC: ERH 14:51 → ERHI 17:10 → 2NB 17:10 → ENRESERV 17:59 → ENTRNSPT 19:25 → 2NB 20:04 → CMPTRNSPT 20:26 → 2NB 11-15 09:25
PROVIDERS: Physician Assistant Medical; Student in an Organized Health Care Education/Training Program
DX: J96.21 Acute and chronic respiratory failure with hypoxia (principal); J44.1 Chronic obstructive pulmonary disease with (acute) exacerbation; F17.200 Nicotine dependence, unspecified, uncomplicated; J43.9 Emphysema, unspecified; Z23 Encounter for immunization; E11.9 Type 2 diabetes mellitus without complications; Z99.81 Dependence on supplemental oxygen; E78.5 Hyperlipidemia, unspecified; I10 Essential (primary) hypertension; F41.9 Anxiety disorder, unspecified; R00.0 Tachycardia, unspecified; F32.9 Major depressive disorder, single episode, unspecified; F31.9 Bipolar disorder, unspecified; J90 Pleural effusion, not elsewhere classified; Z79.84 Long term (current) use of oral hypoglycemic drugs; K59.09 Other constipation
CPT/HCPCS: 1255; 1263; 1328; 1530; 1748; 36415; 71045; 82436; 87070; 93005; 93010; 96372; 97116-GP; 97161-GP; G0008; G0378; G8978-GP; G8979-GP; G8980-GP; J0131; J1650; Q2036

== ENCOUNTER 2017-12-29 16:41 | Emergency (ER) | payer OTHER ==
[~2017-12-29 16:41] MED LIST changes: +BIOTIN5 M1 PO; +BREO ELLIPTA 21 EACH INH; +FUROSEMIDE20 M1 PO; +IPRAT-ALBUT 0.5-3 ML INH; +LINZESS72 MCG PO; +MAGNESIUM400 M1 PO; +MULTIVITAMINS1 EAC9 PO; +NORCO 5-325 TA1 EACH PO; +VITAMIN E100 UNI2 PO
--- NOTE | 2017-12-29 17:15 | ED GENERAL ADULT ---
History of Present Illness General Chief Complaint: General Adult Stated Complaint: RIB PAIN Source: patient Exam Limitations: no limitations Vital Signs & Intake/Output Vital Signs & Intake/Output Vital Signs Date Time Temp Pulse Resp B/P B/P Pulse O2 O2 Flow FiO2 Mean Ox Delivery Rate 12/29 2038 108 19 138/71 98 Room Air 12/29 1907 102 20 142/67 98 Nasal 3.0L Cannula 12/29 1650 Nasal 3.0L Cannula 12/29 1650 96.5 103 20 162/77 97 Nasal 3.0L Cannula Allergies Coded Allergies: Penicillins (RASH 10/10/17) azithromycin (From ZITHROMAX Z-ERNESTINA) (RASH 10/10/17) ciprofloxacin (From CIPRO HC) (FACIAL SWELLING, HIVES 10/10/17) clarithromycin (From BIAXIN) (RASH 10/10/17) hydrocortisone (From CIPRO HC) (FACIAL SWELLING 01/21/16) levofloxacin (From LEVAQUIN) (RASH 10/10/17) meperidine (From DEMEROL) (UNKNOWN PER PT 10/10/17) rofecoxib (From VIOXX) (RASH 10/10/17) Reconcile Medications Aripiprazole (Abilify) 15 MG TABLET 1 TAB PO DAILY MENTAL HEALTH (Reported) Biotin (Unknown Strength) CAPSULE 10,000 MCG PO DAILY SUPPLEMENT (Reported) Cyclobenzaprine HCl 10 MG TABLET 1 TAB PO DAILY PRN pain Escitalopram Oxalate (Lexapro) 20 MG TABLET 1 TAB PO DAILY MENTAL HEALTH ( Reported) Ezetimibe (Zetia) 10 MG TABLET 1 TAB PO DAILY CHOLESTEROL (Reported) Fluticasone/Vilanterol (Breo Ellipta 200-25 Mcg INH) 200 MCG-25 MCG/DOSE BLST.W.DEV 1 PUFF INH BID RESP. (Reported) Furosemide 20 MG TABLET 1 TAB PO EOD DIURETIC (Reported) Hydrocodone/Acetaminophen (Vicodin 5-300 MG Tablet) 5 MG-300 MG TABLET 1 TAB PO Q6HR PRN pain Ibuprofen 800 MG TABLET 1 TAB PO Q8 PRN PAIN/INFLAMMATION (Reported) Ipratropium/Albuterol Sulfate (Iprat-Albut 0.5-3(2.5) MG/3 Ml) 0.5 MG-3 MG (2.5 MG BASE)/3 ML AMPUL.NEB 1 VIAL INH BID RESP (Reported) Lamotrigine 150 MG TABLET 1 TAB PO BID BIPOLAR (Reported) Linaclotide (Linzess) 72 MCG CAPSULE 1 CAP PO PRN GI (Reported) Magnesium Oxide (Magnesium) (Unknown Strength) CAPSULE 400 MG PO DAILY SUPPLEMENT (Reported) Meloxicam 7.5 MG TABLET 1 TAB PO DAILY PRN PAIN/INFLAMMATION (Reported) Metformin HCl 1,000 MG TABLET 1 TAB PO DAILY DM (Reported) Metoclopramide HCl 5 MG TABLET 1 TAB PO Q6P PRN GI (Reported) Multiple Vitamin (Multivitamins) 1 EACH TABLET 1 TAB PO DAILY SUPPLEMENT ( Reported) Omeprazole 40 MG CAPSULE.DR 1 CAP PO DAILY ACID REFLUX (Reported) Pravastatin Sodium 20 MG TABLET 1 TAB PO DAILY CHOLESTEROL (Reported) Solifenacin Succinate (Vesicare) 5 MG TABLET 1 TAB PO DAILY INCONTINENCE ( Reported) Suvorexant (Belsomra) 20 MG TABLET 1 TAB PO QPM SLEEP (Reported) Vitamin E Mixed (Vitamin E) (Unknown Strength) TABLET 400 IU PO DAILY SUPPLEMENT (Reported) Triage Note: PT BIBA FROM HOME. PT REPORTS IN OCTOBER SHE WAS DIAGNOSED WITH 2 R SIDED BROKEN RIBS D/T COUGHING AND HAS HAD "NOTHING BUT PROBLEMS SINCE". PT DENIES INJURY. PT REPORTS SHE WAS PICKING UP A WALKER ON SATURDAY AND IT "MADE THE PAIN UNMANAGEABLE". PT REPORTS HX OF COPD AND WEARS O2 AT BASELINE. Triage Nurses Notes Reviewed? yes Onset: Gradual Duration: worse persistent since (2 days, going on x 2 months) Timing: recent history Injury Environment: home Severity: moderate No Modifying Factors: none Associated Symptoms: cough HPI: Patient is a 67-year-old female presenting to the emergency department with chief complaint of right-sided rib pain. She reports that she was diagnosed with 2 rib fractures approximately 2 months ago after excessive coughing. She's been treated with pain medication and symptoms have been manageable. Over the past one week she noticed the right rib pain getting worse. Patient reports that the cough has been improving. Denies any new trauma. She does report that she lifted something up prior to onset of symptoms and twisted and since then she's noticed worsening pain. No nausea or vomiting. She does wear 3 L nasal cannula all the time for COPD. She has an appointment next week with her lung doctor. Pain does not radiate. She's been trying to use [id number] patches for pain without relief. (Dayanara Santana) Past History Travel History Traveled to [place] past 21 day No Medical History Any Pertinent Medical History? 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 No (Dayanara Santana) Review of Systems Review of Systems Constitutional: Reports: no symptoms. Comments Review of systems: See HPI, All other systems negative. Constitutional, no chills fever or weight loss HEENT: No visual changes no sore throat no congestion Cardiovascular: No palpitation , orthopnea or ankle swelling Skin, no jaundice no rashes Respiratory: No dyspnea sputum or hemoptysis GI: No nausea no vomiting : No dysuria No hematuria Muscle skeletal: no back pain, no neck pain, Neurologic: No numbness no confusion, no headaches Psych: No stress anxiety or depression,. Heme/endocrine: No bruising no bleeding no polyuria or polydipsia Immunology: No splenectomy or history of AIDS (Dayanara Santana) Physical Exam Physical Exam General Appearance: well developed/nourished, no apparent distress, alert, awake , appears uncomfortable Comments: Well-developed well-nourished person in no acute distress HEENT: . Pupils equally round and reactive to light and accommodation. Nose is atraumatic. External auditory canal and Tympanic membranes clear. Pharynx normal. No swelling or edema. Neck: Normal inspection Cardiovascular: Regular rate and rhythms no murmurs rubs or gallops, normal JVP Respiratory: Chest is tender to palpation over the right anterior and lateral ribs along the mid clavicular and axillary line. No ecchymosis noted in this area. No crepitus palpated in this area.. No respiratory distress.breath sounds clear to auscultation bilaterally Abdomen: Soft, obese, nontender nondistended, no appreciable organomegaly. Normal bowel sounds. No ascites, no rebound or guarding. Extremity: One plus pitting edema noted in the lower extremities bilaterally. No calf tenderness to palpation bilaterally. Pedal pulses are 2+ bilaterally. Neuro: Alert oriented x3 Skin: No appreciable rash on exposed skin, skin is warm and dry. Psych: Mood and affect is normal, memory and judgment is normal. Core Measures ACS in differential dx? Yes CVA/TIA Diagnosis: No Sepsis Present: No Sepsis Focused Exam Completed? No (Dayanara Santana) Progress Differential Diagnoses I considered the following diagnoses in my evaluation of the patient: Plan of Care: Orders Procedure Date/time Status Telemetry/Rotor Assembler 12/29 1713 Active TROPONIN LEVEL 12/29 1713 Complete COMPREHENSIVE METABOLIC PANEL 12/29 171 Complete CBC WITHOUT DIFFERENTIAL 12/29 171 Complete B-TYPE NATRIURETIC PEP (BNP) 12/29 171 Complete EKG 12/29 171 Active Laboratory Tests 12/29/17 1729: Anion Gap 11, Estimated GFR > 60, BUN/Creatinine Ratio 25.6 H, Glucose 120 H, Calcium 9.9, Total Bilirubin 0.4, AST 22, ALT 41, Alkaline Phosphatase 107, Troponin I < 0.01, Oei-Z-Dotkeevcviz Pept 55.4, Total Protein 7.4, Albumin 4.4, Globulin 3.0, Albumin/Globulin Ratio 1.5, CBC w Diff NO MAN DIFF REQ, RBC 4.71, MCV 90.2, MCH 29.7, MCHC 32.9 L, RDW 13.0, MPV 8.7, Gran % 74.5, Lymphocytes % 13.8 L, Monocytes % 8.3, Eosinophils % 3.2, Basophils % 0.2, Absolute Granulocytes 7.7 H, Absolute Lymphocytes 1.4, Absolute Monocytes 0.9 H, Absolute Eosinophils 0.3, Absolute Basophils [address] and laboratory results. Pain improved after IV morphine. She was informed of questionable lesion on the kidney. She'll follow-up with her primary care physician and her searchlight operator. Patient given limited prescription for Vicodin for pain. Vitals are stable. Patient will require ambulance transport at home due to O2 dependence. Discussed with and he agrees with plan. Diagnostic Imaging: Viewed by Me: CT Scan. Discussed w/RAD: CT Scan. Radiology Impression: PATIENT: JOSEPH DEVRIES PRESENT AGE: 67 PATIENT ACCOUNT NO: [id number] : 48 LOCATION: [facility] ORDERING PHYSICIAN: Dayanara GOMEZ SERVICE DATE: 12/29/17 EXAM TYPE: CAT - CTA CHEST-PULMONARY EMBOLISM EXAMINATION: CT ANGIOGRAM OF THE CHEST WITH AND WITHOUT CONTRAST (CT PULMONARY ANGIOGRAM FOR PE) CLINICAL INFORMATION: Shortness of breath, right rib pain COMPARISON: Chest x-ray 12/19/2017, CT chest 11/14/2017 TECHNIQUE: Prior to contrast administration, noncontrast localization images were obtained. Subsequently, multidetector volumetric imaging was performed from the thoracic inlet to below the diaphragms following the administration of 70 mL Omnipaque 350 intravenous contrast. No contrast reaction reported. Sagittal, coronal, and MIP oblique sagittal reformatted images were obtained on the CT workstation, uploaded to PACS, and reviewed. Total exam dose- length product 606 mGy-cm. FINDINGS: QUALITY OF STUDY/CONTRAST BOLUS: Adequate. The majority of the contrast is located within the aorta. PULMONARY ARTERIES: No central or proximal segmental pulmonary emboli. Bolus timing somewhat limits evaluation of the distal segmental segments. THORACIC AORTA: No aneurysm or dissection. LUNG: There are moderately severe centrilobular emphysematous changes throughout the upper lobes. There is a small right basilar dependent atelectasis versus consolidation. Howard, the lungs are clear. No pleural effusion. PLEURA: No pleural effusion or pneumothorax. MEDIASTINUM: Heart size is normal. No pericardial effusion. Extensive coronary artery calcification noted particularly involving the left anterior and left circumflex coronary arteries. A right hilar lymph node measures 1.1 cm in short axis. Mediastinal lymph nodes measure up to 0.8 cm in short axis diameter. No left hilar adenopathy. No evidence of septal bowing or right heart strain. CHEST WALL/ AXILLA: No axillary or internal mammary lymphadenopathy. OSSEOUS STRUCTURES: Mild multilevel degenerative changes involving the thoracic spine. There is acute mildly displaced fracture right lateral seventh rib. There are chronic appearing fractures of the right lateral eighth and ninth ribs. No left rib fractures. UPPER ABDOMEN: There is an enhancing mass which is partially exophytic at the level of the mid pole involving the left kidney. The mass measures approximately 3.0 x 2.3 cm (image 498, series 2). Known polycystic kidneys disease. There are numerous cystic structures are partially imaged. No reflux of contrast into the hepatic veins to suggest elevated right heart pressures. IMPRESSION: 1. Limited study for the evaluation of pulmonary embolism. No definite central or proximal segmental pulmonary embolism. 2. Right basilar developing consolidation versus atelectasis. 3. Acute right seventh rib fracture. Remote right eighth and ninth rib fractures. 4. Possible left renal mass. Recommend renal ultrasound and consider dedicated CT renal protocol for further evaluation. The appearance is concerning for malignancy. 5. Moderately severe centrilobular emphysema. 6. Prominent right hilar lymph node, possibly reactive. VTE: indeterminate DICTATED BY: Anamika Cuello MD DATE/TIME DICTATED:1903 BINGO CLERK:NATALIE DATE/TIME TRANSCRIBED:12/29/171903 CONFIDENTIAL, DO NOT COPY WITHOUT APPROPRIATE AUTHORIZATION. <Electronically signed in Other Vendor System> SIGNED BY: Anamika Cuello MD 12/29/171922 Initial ED EKG: sinustachycardia at 102 bpm Prior EKG: unchanged (Dayanara Santana) Departure Departure Time of Disposition: 1955 Disposition: HOME OR SELF CARE Condition: Stable Clinical Impression Primary Impression: Rib fracture Qualifiers: Encounter type: initial encounter Rib fracture type: single rib Fracture type: closed Laterality: right Qualified Code: S22.31XA - Fracture of one rib, right side, initial encounter for closed fracture Referrals: Ishmael FREEDMAN,Alhaji Serrato (PCP/Family) Cheryl FREEDMAN,Vargas Larkin Additional Instructions: Follow-up with Dr. Luna, keep appointment for next week. Continue using oxygen saturation. Take Vicodin as prescribed for pain. Return for worsening symptoms or concerns. attached is a copy of your CAT scan results. Make sure he follow up with your primary care physician regarding any incidental findings. Departure Forms: Customer Survey General Discharge Information Prescriptions: Current Visit Scripts Hydrocodone/Acetaminophen (Vicodin 5-300 MG Tablet) 1 TAB PO Q6HR PRN pain #15 TAB (Dayanara Santana) PA/GENERAL OPHTHALMOLOGIST Co-Sign Statement Statement: ED Attending supervision documentation- [X] I saw and evaluated the patient. I have also reviewed all the pertinent lab results and diagnostic results. I agree with the findings and the plan of care as documented in the PA's/GENERAL OPHTHALMOLOGIST's documentation. [X] I have reviewed the ED Record and agree with the PA's/GENERAL OPHTHALMOLOGIST's documentation. [] Additions or exceptions (if any) to the PAs/GENERAL OPHTHALMOLOGIST's note and plan are summarized below: [] (Ammon FREEDMAN,Avery Friedman) Critical Care Note Critical Care Note Critical Care Time: non-applicable (Dayanara Santana)
[2017-12-29 17:47] LABS: ABSOLUTE BASOPHIL COUNT 0 /CUMM (0.0-0.2); ABSOLUTE EOSINOPHIL COUNT 0.3 /CUMM (0.0-0.7); ABSOLUTE GRANULOCYTE CT 7.7 /CUMM (1.4-6.5); ABSOLUTE LYMPH COUNT 1.4 /CUMM (1.2-3.4); ABSOLUTE MONOCYTE COUNT 0.9 /CUMM (0.10-0.60); BASOPHIL % 0.2 % (0.0-2.0); EOSINOPHIL % 3.2 % (0-5); GRANULOCYTE % 74.5 % (42.2-75.2); HEMATOCRIT 42.5 % (37-47); MEAN CORPUSCULAR HGB 29.7 PG (27.0-31.0); MEAN CORPUSCULAR HGB CONC 32.9 G/DL (33.0-37.0); MEAN CORPUSCULAR VOLUME 90.2 FL (81.0-99.0); MEAN PLATELET VOLUME 8.7 FL (7.4-10.4); PLATELET COUNT 289 /CUMM (130-400); RED BLOOD CELL CT 4.71 /CUMM (4.20-5.40); WHITE BLOOD CELL COUNT 10.3 /CUMM (4.8-10.8)
--- NOTE | 2017-12-29 19:23 | CT SCAN REPORT ---
EXAMINATION: CT ANGIOGRAM OF THE CHEST WITH AND WITHOUT CONTRAST (CT PULMONARY ANGIOGRAM FOR PE) CLINICAL INFORMATION: Shortness of breath, right rib pain COMPARISON: Chest x-ray 12/19/2017, CT chest 11/14/2017 TECHNIQUE: Prior to contrast administration, noncontrast localization images were obtained. Subsequently, multidetector volumetric imaging was performed from the thoracic inlet to below the diaphragms following the administration of 70 mL Omnipaque 350 intravenous contrast. No contrast reaction reported. Sagittal, coronal, and MIP oblique sagittal reformatted images were obtained on the CT workstation, uploaded to PACS, and reviewed. Total exam dose-length product 606 mGy-cm. FINDINGS: QUALITY OF STUDY/CONTRAST BOLUS: Adequate. The majority of the contrast is located within the aorta. PULMONARY ARTERIES: No central or proximal segmental pulmonary emboli. Bolus timing somewhat limits evaluation of the distal segmental segments. THORACIC AORTA: No aneurysm or dissection. LUNG: There are moderately severe centrilobular emphysematous changes throughout the upper lobes. There is a small right basilar dependent atelectasis versus consolidation. Howard, the lungs are clear. No pleural effusion. PLEURA: No pleural effusion or pneumothorax. MEDIASTINUM: Heart size is normal. No pericardial effusion. Extensive coronary artery calcification noted particularly involving the left anterior and left circumflex coronary arteries. A right hilar lymph node measures 1.1 cm in short axis. Mediastinal lymph nodes measure up to 0.8 cm in short axis diameter. No left hilar adenopathy. No evidence of septal bowing or right heart strain. CHEST WALL/AXILLA: No axillary or internal mammary lymphadenopathy. OSSEOUS STRUCTURES: Mild multilevel degenerative changes involving the thoracic spine. There is acute mildly displaced fracture right lateral seventh rib. There are chronic appearing fractures of the right lateral eighth and ninth ribs. No left rib fractures. UPPER ABDOMEN: There is an enhancing mass which is partially exophytic at the level of the mid pole involving the left kidney. The mass measures approximately 3.0 x 2.3 cm (image 498, series 2). Known polycystic kidneys disease. There are numerous cystic structures are partially imaged. No reflux of contrast into the hepatic veins to suggest elevated right heart pressures. IMPRESSION: 1. Limited study for the evaluation of pulmonary embolism. No definite central or proximal segmental pulmonary embolism. 2. Right basilar developing consolidation versus atelectasis. 3. Acute right seventh rib fracture. Remote right eighth and ninth rib fractures. 4. Possible left renal mass. Recommend renal ultrasound and consider dedicated CT renal protocol for further evaluation. The appearance is concerning for malignancy. 5. Moderately severe centrilobular emphysema. 6. Prominent right hilar lymph node, possibly reactive. VTE: indeterminate
[2017-12-29] MEDS ORDERED: VICODIN 5-3001 EACH PO (19:58)
[2017-12-29 20:39] VITALS: BP 138/71
== END 2017-12-29 20:45 ==
LOC: ERH 16:41
PROVIDERS: Physician Assistant
DX: S22.41XA Multiple fractures of ribs, right side, initial encounter for closed fracture (principal); X58.XXXA Exposure to other specified factors, initial encounter; Y92.9 Unspecified place or not applicable; Y93.9 Activity, unspecified
CPT/HCPCS: 93005; 93010; 96374